=== PATIENT | female | born 1945 | race Caucasian/White ===

== ENCOUNTER → 2017-01-03 | Outpatient (CLI) | payer MEDICARE ==
--- NOTE | 2017-01-04 11:02 | MM ---
Reason for exam: screening (asymptomatic). Last mammogram was performed 1 year ago. History: Patient is postmenopausal. Family history of premenopausal breast cancer in sister at age 40. Physical Findings: A clinical breast exam by your physician is recommended on an annual basis and results should be correlated with mammographic findings. MG 3D Screening Mammo W/Cad Bilateral CC and MLO view(s) were taken. Prior study comparison: December 29, 2015, bilateral MG screening mammo w CAD. November 25, 2014, bilateral MG screening mammo w CAD. The breast tissue is heterogeneously dense. This may lower the sensitivity of mammography. Focal asymmetry upper outer right breast anterior third position. This finding is changed when compared with previous exams. ASSESSMENT: Incomplete: need additional imaging evaluation, BI-RAD 0 RECOMMENDATION: Special view mammogram of the right breast. [facility] will attempt to contact patient to return for supplemental views.
== END | disposition home or self-care (01) ==
LOC: RADMAMWWP 13:34
PROVIDERS: ATTEND Family Medicine
DX: Z12.31 Encounter for screening mammogram for malignant neoplasm of breast (principal); R92.2 Inconclusive mammogram
CPT/HCPCS: 77063; G0202

== ENCOUNTER → 2017-01-07 | Outpatient (CLI) | payer MEDICARE ==
--- NOTE | 2017-01-07 11:51 | MM ---
Reason for exam: additional evaluation requested from abnormal screening. Last mammogram was performed less than 1 month ago. History: Patient is postmenopausal. Family history of premenopausal breast cancer in sister at age 40. Physical Findings: Nurse did not find any significant physical abnormalities on exam. MG 3D Work Up W/Cad RT Spot compression CC, spot compression MLO, and LM view(s) were taken of the right breast. Prior study comparison: January 03, 2017, bilateral MG 3d screening mammo w/cad. December 29, 2015, bilateral MG screening mammo w CAD. Finding: There is a 6 mm round mass in the upper outer quadrant, anterior position of the right breast, does not completely go away. These results were verbally communicated with the patient and result sheet given to the patient on 01/07/17. ASSESSMENT: Incomplete: need additional imaging evaluation, BI-RAD 0 RECOMMENDATION: Ultrasound of the right breast.
--- NOTE | 2017-01-07 11:52 | USB ---
Reason for exam: additional evaluation requested from abnormal screening. History: Patient is postmenopausal. Family history of premenopausal breast cancer in sister at age 40. US Breast Workup Limited RT Right breast ultrasound demonstrates no cystic or solid lesion seen. These results were verbally communicated with the patient and result sheet given to the patient on 01/07/17. ASSESSMENT: Probably benign, BI-RAD 3 RECOMMENDATION: Follow-up diagnostic mammogram of the right breast in 6 months.
== END | disposition home or self-care (01) ==
LOC: RADMAMWWP 10:17
PROVIDERS: ATTEND Family Medicine
DX: R92.2 Inconclusive mammogram (principal); R92.8 Other abnormal and inconclusive findings on diagnostic imaging of breast; Z80.3 Family history of malignant neoplasm of breast
CPT/HCPCS: 76642; G0206; G0279

== ENCOUNTER → 2017-06-15 | Outpatient (CLI) | payer MEDICARE ==
--- NOTE | 2017-06-15 14:45 | MR ---
EXAMINATION TYPE: MR cervical spine wo con DATE OF EXAM: 06/15/2017 COMPARISON: NONE HISTORY: 72 year-old female cervical radiculopathy, pain in neck and arms TECHNIQUE: Multiplanar, multisequence images of the cervical spine were acquired. FINDINGS: No craniocervical junction abnormality, predental space widening, or prevertebral soft tissue swellin g. Preserved alignment of the cervical spine. Mild heterogeneity of marrow signal without suspicious bone marrow placement. Some fatty Modic type I I endplate changes present at C6-C7. Intervertebral discs are degenerated, desiccated, and show disc osteophyte complex formation. Ligamentum flavum thickening at multiple levels especially from C4 through C7 levels. Scattered facet and uncovertebral joint degenerative change Lobulated mucosal thickening and mucosal retention cysts floor of the left maxillary sinus. At C2-C3, there is facet and uncovertebral joint arthropathy particularly on the left and mild bench hand machine ior disc bulge. No significant spinal canal or neuroforaminal stenosis. At C3-C4, disc osteophyte complex with uncovertebral joint and facet arthropathy. Changes result in m oderate left neuroforaminal stenosis. There is mild attenuation of the thecal sac without significant spinal canal stenosis. At C4-C5, facet arthropathy and mild ligamentum flavum thickening. No significant canal or foraminal stenosis. At C5-C6, there is disc osteophyte complex with uncovertebral joint and facet arthropathy as well as ligamentum flavum thickening. Changes mildly narrow the spinal canal with abutment of the dorsal cord but no significant cord flattening. Changes result in mild left neuroforaminal stenosis. At C6-C7, similar changes are present with moderate left neuroforaminal stenosis and mild spinal heidy l stenosis with abutment of both the dorsal and ventral cord but no significant cord flattening or co rd compression. At C7-T1, facet degenerative change without canal or foraminal stenosis. There is a left paracentral disc protrusion at T4-T5 and right paracentral at T3-T4. These do not see m to contribute to any significant spinal canal or neural foraminal stenosis. No T2-weighted cord signal abnormality seen. IMPRESSION: 1. Moderate degenerative disc disease with disc osteophyte complexes. Additional facet/uncovertebral joint arthropathy and ligamentum flavum thickening. 2. The changes cause mild spinal canal stenosis at C5-C6 and C6-C7 and minimally attenuate the thecal sac at additional levels. No canal compromise or cord compression. 3. Variable mild neural foraminal narrowing as outlined above, moderate on the left at C3-C4 and C6-C 7.
== END | disposition home or self-care (01) ==
LOC: RADMRIMAIN 12:58
PROVIDERS: ATTEND Internal Medicine Rheumatology
DX: M48.02 Spinal stenosis, cervical region (principal); M99.71 Connective tissue and disc stenosis of intervertebral foramina of cervical region; M50.10 Cervical disc disorder with radiculopathy, unspecified cervical region; M25.78 Osteophyte, vertebrae; M24.28 Disorder of ligament, vertebrae; M46.92 Unspecified inflammatory spondylopathy, cervical region
CPT/HCPCS: 72141

== ENCOUNTER → 2018-01-10 | Outpatient (CLI) | payer MEDICARE ==
--- NOTE | 2018-01-10 10:36 | MM ---
Reason for exam: additional evaluation requested from prior study. Last mammogram was performed 6 months ago. History: Patient is postmenopausal. Family history of premenopausal breast cancer in sister at age 40. Physical Findings: Nurse did not find any significant physical abnormalities on exam. MG 3D Diag Mammo W/Cad ANIVAL Bilateral CC and MLO view(s) were taken. Prior study comparison: July 11, 2017, right breast MG 3d diag mammo w/cad RT. January 07, 2017, right breast MG 3d work up w/cad RT. There are scattered fibroglandular densities. Finding: There are typically benign vascular calcifications in both breasts. There is no discrete abnormality. These results were verbally communicated with the patient and result sheet given to the patient on 01/10/18. ASSESSMENT: Benign, BI-RAD 2 RECOMMENDATION: Routine screening mammogram of both breasts in 1 year.
== END ==
LOC: RADMAMWWP 09:38
PROVIDERS: ATTEND Family Medicine
DX: R92.8 Other abnormal and inconclusive findings on diagnostic imaging of breast (principal)
CPT/HCPCS: 77066; G0279

== ENCOUNTER → 2019-01-11 | Outpatient (CLI) | payer MEDICARE ==
--- NOTE | 2019-01-12 07:58 | BD ---
EXAMINATION TYPE: Axial Bone Density DATE OF EXAM: 01/11/2019 COMPARISON: NONE CLINICAL HISTORY: 73 YR OLD FEMALE....ICD-10 CODE: M89.9 DISORDER OF BONE Height: 52.2 Weight: 224 FRAX RISK QUESTIONS: Glucocorticoids (More than 3mos): YES (Ex: prednisone, prednisolone, methylprednisolone, dexamethasone, and hydrocortisone). History of Fracture in Adulthood: NOTHING OVER 50 YRS OLD Rheumatoid Arthritis: YES SECONDARY OSTEOPROROSI EARLY MENOPAUSE....AT 30 YRS OLD RISK FACTORS HISTORY OF: NO FRACTURES AFTER AGE 51 YRS OLD Family History of Osteoporosis: YES, MOTHER AND FATHER, NO HIP FXS Postmenopausal woman: YES, IN HER 50S Lost more than 2 inches in height since high school: YES Frequent falls: UNSTEADY Poor Health: RA MEDICATIONS: Prednisone : ON AND OFF FOR ARTHRITIS Thyroid Medications: YES, SYNTHROID, FOR ABOUT 30 YRS Additional Medications: METHOTREXATE, FLUOXETINE, MELOXICAM, HYDROXYCHLOROQUINE, BP MEDS, Additional History: RA AND OSTEOARTHRITIS, EXAM MEASUREMENTS: Bone mineral densitometry was performed using the [employer] System. Bone mineral density as measured about the Lumbar spine is: ----- L1-L4(G/cm2): 1.229 T Score Values are as follows: ----- L1: -1.5 ----- L2: 0.4 ----- L3: 1.4 ----- L4: 0.9 ----- L1-L4: 0.4 Bone mineral density FIRST BONE DENSITY AT MPH Bone mineral density about the R hip (g/cm2): 0.953 Bone mineral density about the L hip (g/cm2): 1.018 T Score values are as follows: -----R Neck: 1.0 -----L Neck: -0.7 -----R Total: -0.4 -----L Total: 0.1 Bone mineral density FIRST AT MPH FRAX%s: THERE IS A 15.3% CHANCE FOR A MAJOR OSTEOPOROTIC FX AND A 1.9% FOR HIP....PROBABILITY FOR F X IN 10 YRS TIME IMPRESSION: No evidence for osteoporosis or osteopenia. NOTE: T-SCORE=SD OF THE YOUNG ADULT MEAN.
--- NOTE | 2019-01-12 12:46 | MM ---
Reason for exam: screening (asymptomatic). Last mammogram was performed 1 year ago. History: Patient is postmenopausal. Family history of premenopausal breast cancer in sister at age 40. Physical Findings: A clinical breast exam by your physician is recommended on an annual basis and results should be correlated with mammographic findings. MG 3D Screening Mammo W/Cad Bilateral CC, MLO, and XCCL view(s) were taken. Prior study comparison: January 10, 2018, bilateral MG 3d diag mammo w/cad ANIVAL. July 11, 2017, right breast MG 3d diag mammo w/cad RT. There are scattered fibroglandular densities. There are benign appearing round vascular calcifications bilaterally. There is no discrete abnormality. ASSESSMENT: Benign, BI-RAD 2 RECOMMENDATION: Routine screening mammogram of both breasts in 1 year.
== END | disposition home or self-care (01) ==
LOC: RADMAMWWP 14:30
PROVIDERS: ATTEND Family Medicine
DX: Z12.31 Encounter for screening mammogram for malignant neoplasm of breast (principal); M89.9 Disorder of bone, unspecified
CPT/HCPCS: 77063; 77067; 77080

== ENCOUNTER → 2020-03-04 | Outpatient (CLI) | payer MEDICARE ==
[2020-03-04 12:18] LABS: Amorphous Sediment,Urine Occasional /hpf; Appearance,Urine Cloudy (Clear); Bacteria,Urine Occasional /hpf; Bilirubin,Urine Negative (Negative); Blood,Urine Negative (Negative); Budding Yeast,Urine Rare /hpf; Color,Urine Yellow; Glucose,Urine (UA) Negative (Negative); Ketones,Urine Negative (Negative); Leukocyte Esterase,Urine Large (Negative); Mucus,Urine Rare /hpf; Nitrite,Urine Positive (Negative); Protein,Urine 1+ (Negative); RBC,Urine 10 /hpf (0-5); Specific Gravity,Urine 1.014 (1.001-1.035); Squamous Epithelial Cell,Urine <1 /hpf (0-4); Urobilinogen,Urine <2.0 mg/dL (<2.0); WBC,Urine 142 /hpf (0-5)
== END | disposition home or self-care (01) ==
LOC: LABPAT 10:54
PROVIDERS: ATTEND Orthopaedic Surgery
DX: Z01.818 Encounter for other preprocedural examination (principal); Z01.812 Encounter for preprocedural laboratory examination
CPT/HCPCS: 36415; 81001; 85730; 87070

== ENCOUNTER 2020-03-11 13:16 | Observation (INO) | payer MEDICARE ==
[2020-03-10 08:25] VITALS: BMI 34.1
[~2020-03-11 13:16] MED LIST: ACETAMINOPHEN TAB 500 MG TAB PO ONE; DIAZEPAM 5 MG TAB PO PRN; GABAPENTIN 300 MG CAP PO ONE; HYDROcodone/APAP 5-325MG 1 EACH TAB PO PRN; HYDROmorphone 0.5 MG/0.5 ML SYRINGE IVP PRN; MAGNESIUM HYDROXIDE 2,400 MG/10 ML CUP PO PRN; MELOXICAM 7.5 MG TAB PO ONE; NALOXONE 0.4 MG/ML 1 ML VIAL IV PRN; ONDANSETRON 4 MG/2 ML VIAL IVP PRN; TRANEXAMIC ACID 1,000 MG in SODIUM CHLORIDE 0.9% 100 ML IVPB ONE
[2020-03-11] MEDS ORDERED: ACETAMINOPHEN TAB 500 MG TAB ONE (13:33)
[2020-03-11] MEDS ORDERED: LACTATED RINGERS 1,000 ML IV ONE (14:00)
[2020-03-11 14:32] LABS: Calcium 8.6 mg/dL (8.4-10.2); INR 1.4 (<1.2); Potassium 4.1 mmol/L (3.5-5.1); Prothrombin Time 14.2 sec (9.0-12.0)
[2020-03-11 14:41] LABS: Basophils % (A) 1 %; Eosinophils # (A) 0.1 k/uL (0-0.7); Eosinophils % (A) 1 %; HCT 34.3 % (34.0-46.0); HGB 10.9 gm/dL (11.4-16.0); Hypochromasia Marked; Lymphocytes # (A) 1.2 k/uL (1.0-4.8); Lymphocytes % (A) 18 %; MCH 31.9 pg (25.0-35.0); MCHC 31.8 g/dL (31.0-37.0); MCV 100.5 fL (80.0-100.0); Macrocytosis Slight; Mean Platelet Volume 9.4; Monocytes # (A) 0.4 k/uL (0-1.0); Monocytes % (A) 6 %; Neutrophils % (A) 72 %; Platelet Count 245 k/uL (150-450); RBC 3.41 m/uL (3.80-5.40); RDW 15.9 % (11.5-15.5)
[2020-03-11] MEDS ORDERED: HYDROmorphone 0.5 MG/0.5 ML SYRINGE IVP ONE ×2 (15:24→17:35)
[2020-03-11] MEDS ORDERED: fentaNYL (PF) 50 MCG/ML 2 ML AMP ONE (15:42)
[2020-03-11] MEDS ORDERED: TRANEXAMIC ACID 1,000 MG/10 ML VIAL ONE (15:42)
[2020-03-11] MEDS ORDERED: SUCCINYLCHOLINE CHLORIDE 100 MG/5 ML SYR IV ONE (15:42)
[2020-03-11] MEDS ORDERED: MIDAZOLAM 2 MG/2 ML VIAL ONE (15:42)
[2020-03-11] MEDS ORDERED: PHENYLEPHRINE-0.9% NACL SYG 1 MG/10 ML SYRINGE ONE (15:42)
[2020-03-11] MEDS ORDERED: ePHEDrine SULFATE/0.9% NACL/PF 50 MG/5 ML SYRINGE IV ONE (15:42)
[2020-03-11] MEDS ORDERED: LIDOCAINE 1% INJ 10MG/ML (20 ML MDV) ONE (15:42)
[2020-03-11] MEDS ORDERED: SODIUM CHLORIDE 0.9% IRRIG 1,000 ML BTL IRRIGATION ONE (15:42)
[2020-03-11] MEDS ORDERED: HEPARIN SODIUM,PORCINE 10,000 UNIT/ML 1 ML VIAL ONE (15:42)
[2020-03-11] MEDS ORDERED: SODIUM CHLORIDE 0.9% 100 ML BAG ONE (15:42)
[2020-03-11] MEDS ORDERED: PROPOFOL 10 MG/ML 20 ML VIAL IV ONE (15:42)
[2020-03-11] MEDS: ROPIVACAINE 246.25 MG, EPINEPHrine 0.5 MG, KETOROLAC 30 MG, cloNIDine HCL/PF 80 MCG, WA... MISCELLANE ONE ×10 (16:16→16:47)
--- NOTE | 2020-03-11 17:02 | P.OP ---
Date of Procedure: 03/11/20 Preoperative Diagnosis: Severe osteoarthritis right hip Postoperative Diagnosis: Severe osteoarthritis right hip Procedure(s) Performed: Right total hip arthroplasty with a direct anterior approach Implants: Hodge and nephew Polarstem size 4 standard Hodge & Nephew R3, 3 hole acetabular shell, 48 mm Hodge [employer] Nephew reflection 6.5 mm cancellus screw, 20 mm 2 Hodge [employer] Nephew R3, XLPE 20 acetabular liner Hodge & Nephew Oxinium femoral head 32 m, +0 All components were press-fit. The articulation is Oxinium on polyethylene. Anesthesia: spinal Surgeon: Mauro Sherman Leadlighter #1: Sally Brar Estimated Blood Loss (ml): 130 (60 mL returned with Cell Saver) Pathology: other (Femoral head) Condition: stable Disposition: PACU Indications for Procedure: After failure of conservative treatment we discussed the surgical and nonsurgical treatment options at length. Patient wishes to proceed with a total hip arthroplasty with a direct anterior approach. Complications specific to this procedure were discussed at length, including but not limited to infection, leg length discrepancy, dislocation, and nerve injury. Covid-19 was also discussed at length with the patient, and they are aware of the current policies and procedures. The patient was given the option of delaying surgery, but they elect to proceed knowing these risks. Patient is aware of all these complications and informed consent was obtained Operative Findings: The operative findings are consistent with severe osteoarthritis of the right hip Description of Procedure: Patient was seen and evaluated in the preoperative area, consent was reviewed, and the surgical site was marked with a skin marker. Patient was then brought to the operating room and given prophylactic antibiotics intravenously. 1 g of Tranexamic acid was also given. A spinal anesthetic was administered by the anesthesia department. The patient was then placed on the [place] table with the bony prominences well-padded. The hip area was then prepped and draped in usual sterile fashion. A universal timeout was then performed, which confirmed the patient's name, surgical site, ALLERGIES, and procedure being performed. Next the incision site was located at 1 cm distal and 1 cm lateral to the anterior superior iliac spine. The skin and subcutaneous tissues were sharply incised. Incision was carefully dissected down to the fascia overlying the tensor fascia glenna muscle. This fascia was then incised in line with the incision. Next, using blunt finger dissection, the tensor fascia glenna muscle was dissected off its investing fascia. The muscle was then carefully retracted laterally with a cobra retractor over the lateral neck of the femur. Next, the circumflex vessels were identified and cauterized using the AquaMantis device. The anterior hip capsule was then exposed. The capsule was then opened and an inverted T fashion. Cobra retractors were then placed intracapsularly. The proximal femur was then visualized. The femoral neck was then osteotomized appropriate level above the lesser trochanter. Small amount of traction was placed with the [place] table. A small wedge of bone was then removed from the remaining femoral head. Next, using a corkscrew femoral head was easily removed from the acetabulum. On gross visual inspection, the femoral head had complete loss of articular cartilage in multiple periarticular osteophytes. Attention was then turned to the acetabulum. the acetabulum was exposed and any remaining labrum was excised. Sequential reaming of the acetabulum was performed using fluoroscopic guidance. When the appropriate size was reached, a trial was then placed. The position and fit of the trial was checked with fluoroscopy. The trial was then removed. Then, using fluoroscopic guidance, the final implant was impacted at 20 of anteversion and 40 of abduction, and fully seated in the acetabulum. 2 screws were then placed in the acetabulum. Again fluoroscopy was used to check position of the screws. Next, the liner was then impacted, with a 20 elevated liner located in the anterior superior quadrant. Component locking was confirmed. Attention was then directed to the femur. With the aid of the [place] table, the femur was externally rotated to approximately 130, extended, and abducted under the opposite leg. A side hook was then placed under the proximal femur, and the side hook elevator was used to elevate the proximal femur. Retractors were then placed. A capsular release was performed, as well as a release of the conjoined tendon, which afforded excellent visualization of the proximal femur. Next, a box osteotome was used to lateralize the proximal femur. A wood stock blank handler was then used to locate the femoral canal. Sequential broaching was then performed with appropriate size which afforded excellent fixation in the proximal femur. A trial was then placed with appropriate head and neck, and the hip was gently reduced with the aid of the [place] table. Fluoroscopy was then used to check position of the components, as well as to ensure equal leg lengths. The hip was then gently dislocated and the trials were then removed. Final implants were then impacted and the hip was again reduced. Final fluoroscopic x-rays confirmed that the components were in anatomic position, as well as equal leg lengths. The hip was also taken through range of motion, and found to be stable. The hip was then copiously irrigated with antibiotic solution with pulsatile lavage. The hip was then irrigated with Irrisept solution. The soft tissues were then injected with a ropivacaine solution, which consisted of 246.25 mg of ropivacaine, 0.5 mg of epinephrine, 30 mg of Toradol, 80 g of clonidine, and 48.45 mL of sterile water, for a total of 100 mL of fluid injected. A second dose of 1 g of Tranexamic acid was also given. the fascia was then closed with 2-0 strata fix suture. The subcutaneous tissue was closed with 3-0 Vicryl. The subcuticular tissue was closed with 3-0 strata fix suture. The skin was then closed with Dermabond glue and a sterile silver dressing. The patient was then transferred to the recovery room in stable condition. The special education teaching assistant EVNAGELINA Lala was required due to the complexity of surgery, and the need for skilled instructor adjunct surgical technician for positioning, draping, exposure, retraction, and closure of the wound.
--- NOTE | 2020-03-11 17:37 | XR ---
EXAMINATION TYPE: XR Hip Limited RT DATE OF EXAM: 03/11/2020 COMPARISON: NONE HISTORY: Hip surgery TECHNIQUE: Single view FINDINGS: There is a right hip prosthesis. Components appear in anatomic position. IMPRESSION: No complicating process seen.
[2020-03-11] MEDS: HYDROmorphone 1 MG/ML 1 ML SYRINGE IVP ONE ×2 (17:49→18:00)
[2020-03-11] MEDS: LACTATED RINGERS 1,000 ML IV SCH (19:37)
[2020-03-11] MEDS: SODIUM CHLORIDE 0.9% 1,000 ML IV SCH (19:47)
[2020-03-11] MEDS: SENNOSIDES-DOCUSATE SODIUM 1 EACH TAB PO SCH (23:04)
[2020-03-11] MEDS: ASPIRIN 325 MG TAB PO SCH (23:05)
[2020-03-12 06:44] LABS: Basophils % (A) 0 %; Eosinophils % (A) 0 %; HCT 25.4 % (34.0-46.0); Hypochromasia Marked; Lymphocytes % (A) 9 %; MCHC 31.6 g/dL (31.0-37.0); MCV 101.2 fL (80.0-100.0); Macrocytosis Slight; Mean Platelet Volume 9.2; Monocytes # (A) 0.7 k/uL (0-1.0); Monocytes % (A) 6 %; Neutrophils # (A) 9.7 k/uL (1.3-7.7); Neutrophils % (A) 84 %; Platelet Count 202 k/uL (150-450); RBC 2.51 m/uL (3.80-5.40); RDW 15.6 % (11.5-15.5); WBC 11.6 k/uL (3.8-10.6)
--- NOTE | 2020-03-12 07:21 | FL ---
Fluoroscopy HISTORY: Replacement 33 seconds fluoroscopy time supplied to the referring clinician. 2 intraoperative C-arm images docum ent the procedure. See dictated report from orthopedic surgery.
--- NOTE | 2020-03-12 07:21 | XR ---
Limited right hip HISTORY: Total hip replacement 2 intraoperative C-arm images document the procedure
[2020-03-12] MEDS: SODIUM CHLORIDE 0.9% 1,000 ML IV SCH ×3 (08:21→19:25)
[2020-03-12] MEDS: LACTATED RINGERS 1,000 ML IV SCH (08:22)
--- NOTE | 2020-03-12 08:58 | P.DS ---
Providers Expected date of discharge: 03/12/20 Attending physician: Mauro Sherman Consults: 03/11/20 11:58 Consult Physician Routine Consulting Provider: Ascencion Valdivia Consult Reason/Comments: medical management Do you want consulting provider notified?: Yes Primary care physician: Palmer Escobar - Discharge Diagnosis(es) (1) Primary osteoarthritis of right hip Current Visit: Yes Status: Acute (2) S/P total hip arthroplasty Current Visit: Yes Status: Acute Hospital Course: This is a 75-year-old female with known history of degenerative arthritis of the right hip. The patient presents for evaluation. After discussion and consideration patient elects to proceed with total hip arthroplasty. The patient is seen preoperatively by Dr. Sherman and medically cleared for surgery by their primary care physician. Patient is admitted to [facility] on 03/11/2020 for total hip arthroplasty. The procedures performed without complication or sequelae. The patient is doing well postoperatively. Labs and vital signs are stable on day of discharge. On day of discharge patient's hip incision is healing well. There is minimal erythema. There is no drainage noted at this time. There is minimal soft tissue swelling to the hip and thigh. Patient has full foot and ankle motion without difficulty or pain. Calf is soft and nontender to palpation. Neurovascular status to the right lower extremity is intact. Patient is discharged home in good condition. Opioid start talking form is reviewed and signed at patient bedside. Please see med rec for accurate list of home medications. Plan - Discharge Summary Discharge Rx Participant: Yes New Discharge Prescriptions: New Aspirin 325 mg PO BID #60 tab HYDROcodone/APAP 5-325MG [Rawson 5-325] 1 - 2 tab PO Q6HR PRN #48 tab PRN Reason: Pain Sennosides [Senokot] 2 tab PO DAILY PRN #60 tablet PRN Reason: Constipation No Action Hydroxychloroquine Sulfate [Plaquenil] 200 mg PO BID metroNIDAZOLE [Flagyl] 250 mg PO DAILY PRN PRN Reason: gas FLUoxetine HCL [PROzac] 20 mg PO DAILY NIFEdipine [Procardia XL] 30 mg PO DAILY Levothyroxine Sodium [Synthroid] 200 mcg PO QAM Methotrexate Sodium [Methotrexate] 25 mg PO BROOKS Acetaminophen [Tylenol Extra Strength] 1,000 mg PO DIRECTED PRN PRN Reason: Pain Multivitamins, Thera [Multivitamin (formulary)] 1 tab PO DAILY Nitrofurantoin Monohyd/M-Cryst [Macrobid] 100 mg PO Q12HR Discharge Medication List Acetaminophen [Tylenol Extra Strength] 1,000 mg PO DIRECTED PRN 03/10/20 [History] FLUoxetine HCL [PROzac] 20 mg PO DAILY 03/10/20 [History] Hydroxychloroquine Sulfate [Plaquenil] 200 mg PO BID 03/10/20 [History] Levothyroxine Sodium [Synthroid] 200 mcg PO QAM 03/10/20 [History] Methotrexate Sodium [Methotrexate] 25 mg PO BROOKS 03/10/20 [History] Multivitamins, Thera [Multivitamin (formulary)] 1 tab PO DAILY 03/10/20 [History] NIFEdipine [Procardia XL] 30 mg PO DAILY 03/10/20 [History] Nitrofurantoin Monohyd/M-Cryst [Macrobid] 100 mg PO Q12HR 03/10/20 [History] metroNIDAZOLE [Flagyl] 250 mg PO DAILY PRN 03/10/20 [History] Aspirin 325 mg PO BID #60 tab 03/12/20 [Rx] HYDROcodone/APAP 5-325MG [Rawson 5-325] 1 - 2 tab PO Q6HR PRN #48 tab 03/12/20 [Rx] Sennosides [Senokot] 2 tab PO DAILY PRN #60 tablet 03/12/20 [Rx] Follow up Appointment(s)/Referral(s): Mauro Sherman DO [Doctor of Osteopathic Medicine] - 03/26/20 2:30 pm Activity/Diet/Wound Care/Special Instructions: Weightbearing as tolerated with walker. Leave dressing intact. Dressing may be removed by home care nurse or by patient in 10 days. May shower with dressing on. Recommend use of compression stockings daily until follow up to help prevent swelling and blood clots. May remove at night before sleeping. Please follow-up with [facility] in 2 weeks and call with any questions or concerns, . Discharge Disposition: HOME WITH HOME HEALTH SERVICES
[2020-03-12] MEDS ORDERED: NITROFURANTOIN MONOHYD/M-CRYST 100 MG CAP PO SCH (09:00)
[2020-03-12] MEDS: ASPIRIN 325 MG TAB PO SCH ×2 (09:04→21:55)
[2020-03-12] MEDS: NIFEdipine XL 30 MG TAB.ER.24 PO SCH (09:04)
[2020-03-12] MEDS: MULTIVITAMINS, THERA 1 EACH TAB PO SCH (09:14)
[2020-03-12] MEDS: FLUoxetine HCL 20 MG CAP PO SCH (09:14)
[2020-03-12] MEDS: HYDROXYCHLOROQUINE SULFATE 200 MG TAB PO SCH ×2 (10:17→21:40)
[2020-03-12] MEDS: MELOXICAM 7.5 MG TAB PO SCH (11:25)
[2020-03-12] MEDS: LEVOTHYROXINE 100 MCG TAB PO SCH (11:25)
[2020-03-12 13:36] VITALS: RESP 16
[2020-03-12] MEDS: HYDROcodone/APAP 5-325MG 1 EACH TAB PO PRN ×2 (15:05→21:55)
[2020-03-12] MEDS: SENNOSIDES-DOCUSATE SODIUM 1 EACH TAB PO SCH (19:51)
--- NOTE | 2020-03-12 20:48 | P.CONS ---
History of Present Illness - Reason for Consult Consult date: 03/12/20 Medical management Requesting physician: Mauro Sherman - Chief Complaint Right hip pain - History of Present Illness Consultation: This is a very pleasant [address] Escobar. Chronic stable medical conditions include rheumatoid arthritis, hypothyroid, hypertension, depression. Patient has undergone right total hip arthroplasty. Postprocedure local pain is controlled. No nausea vomiting. Did tolerate her breakfast this morning. No chest pain or shortness of breath. Denies any cardiac history. Sitting up in bed. Review of systems: GEN.: None EYES: None HEENT: None NECK: None RESPIRATORY: None CARDIOVASCULAR: None GASTROINTESTINAL: None GENITOURINARY: None MUSCULOSKELETAL: Pain in joints LYMPHATICS: None HEMATOLOGICAL: None PSYCHIATRY: None NEUROLOGICAL: None Past medical history to include: Rheumatoid arthritis, hypothyroid, hypertension, depression Social history: Does not smoke or drink alcohol. . Physical examination: VITAL SIGNS: 98, 62, 15, 94/56, 97% on room air GENERAL: BMI 34.4, sitting up bed, awake. EYES: Pupils equal. Conjunctiva normal. HEENT: External appearance of nose and ears normal, oral cavity grossly normal. NECK: JVD not raised; masses not palpable. HEART: First and second heart sounds are normal; no edema. LUNGS: Respiratory rate normal; clear to auscultation. ABDOMEN: Soft, nontender, liver spleen not palpable, no masses palpable. PSYCH: Alert and oriented x3; mood and affect normal. NEUROLOGICAL: Cranial nerves grossly intact; no facial asymmetry, power and sensation grossly intact MUSCULOSKELETAL: Evidence of OA. LYMPHATICS: No lymph nodes palpable in the axilla and neck INVESTIGATIONS, reviewed in the clinical context: White count 7 hemoglobin 10.9 repeat hemoglobin 8. White count 10.6 potassium 4.1 crit 1.20 Assessment: -Right total hip arthroplasty -Obesity BMI 34.4 -Chronic rheumatoid arthritis -Hypothyroid -Essential hypertension -Depression otherwise specified -Possible CAD stage III from nephrosclerosis-we'll await further workup as an outpatient Plan: Home medications to be resumed. Care was discussed with the patient. Repeat BMP as an outpatient. To be followed by the PCP. Care was discussed with the patient question were answered. Thank you Dr. Sherman Past Medical History Past Medical History: Rheumatoid Arthritis (RA), Thyroid Disorder Additional Past Medical History / Comment(s): lupus, on RX for UTI History of Any Multi-Drug Resistant Organisms: None Reported Past Surgical History: Appendectomy, Bowel Resection, Hysterectomy, Orthopedic Surgery Additional Past Surgical History / Comment(s): removal of 10-12" small intestine " to loose wt", arthroscopy rt shoulder, chioma cataracts Past Anesthesia/Blood Transfusion Reactions: No Reported Reaction Past Psychological History: No Psychological Hx Reported Smoking Status: Never smoker Past Alcohol Use History: None Reported Past Drug Use History: None Reported - Past Family History Sister(s) Family Medical History: Cancer Medications and Allergies Home Medications Medication Instructions Recorded Confirmed Type Acetaminophen [Tylenol Extra 1,000 mg PO DIRECTED PRN 03/10/20 03/10/20 History Strength] FLUoxetine HCL [PROzac] 20 mg PO DAILY 03/10/20 03/10/20 History Hydroxychloroquine Sulfate 200 mg PO BID 03/10/20 03/10/20 History [Plaquenil] Levothyroxine Sodium [Synthroid] 200 mcg PO QAM 03/10/20 03/10/20 History Methotrexate Sodium [Methotrexate] 25 mg PO BROOKS 03/10/20 03/10/20 History Multivitamins, Thera [Multivitamin 1 tab PO DAILY 03/10/20 03/10/20 History (formulary)] metroNIDAZOLE [Flagyl] 250 mg PO DAILY PRN 03/10/20 03/10/20 History Aspirin 325 mg PO BID #60 tab 03/12/20 Rx HYDROcodone/APAP 5-325MG [[place] 1 - 2 tab PO Q6HR PRN #48 tab 03/12/20 Rx 5-325] Sennosides [Senokot] 2 tab PO DAILY PRN #60 tablet 03/12/20 Rx Allergies Allergy/AdvReac Type Severity Reaction Status Date / Time No Known Allergies Allergy Verified 03/10/20 08:10 Physical Exam Vitals: Vital Signs Temp Pulse Pulse Resp BP Pulse Ox 03/12/20 09:00 100/60 03/12/20 08:45 84/48 03/12/20 07:00 98.0 F 62 15 94/56 97 03/12/20 00:45 98.0 F 73 15 90/51 96 03/11/20 21:00 82 104/57 03/11/20 20:45 94 106/69 03/11/20 20:30 79 97/59 06/30/20 20:15 77 92/57 03/11/20 20:00 81 95/61 03/11/20 19:45 79 99/62 03/11/20 19:30 79 98/61 03/11/20 19:15 80 99/65 03/11/20 19:03 97.5 F L 83 18 99/64 98 03/11/20 18:16 79 18 95/40 95 03/11/20 18:00 78 18 94/47 97 03/11/20 17:45 78 18 106/53 100 03/11/20 17:32 80 16 105/51 100 03/11/20 17:16 97 F L 84 14 107/63 100 03/11/20 13:27 97.4 F L 86 18 130/60 99 Intake and Output 03/11/20 03/12/20 03/12/20 22:59 06:59 14:59 Intake Total 850 240 Output Total 130 Balance 720 240 Intake: IV 850 Oral 240 Output: Estimated Blood Loss 130 Other: # Voids 1 1 # Bowel Movements 1 Weight 93.9 kg Results CBC & Chem 7: 03/12/20 06:10 03/11/20 14:10 Labs: Abnormal Lab Results - Last 24 Hours (Table) 03/11/20 03/11/20 03/11/20 Range/Units 14:10 14:10 14:10 WBC (3.8-10.6) k/uL RBC 3.41 L (3.80-5.40) m/uL Hgb 10.9 L (11.4-16.0) gm/dL Hct (34.0-46.0) % MCV 100.5 H (80.0-100.0) fL RDW 15.9 H (11.5-15.5) % Neutrophils # (1.3-7.7) k/uL PT 14.2 H (9.0-12.0) sec INR 1.4 H (<1.2) Chloride 116 H (98-107) mmol/L Carbon Dioxide 18 L (22-30) mmol/L Creatinine 1.20 H (0.52-1.04) mg/dL 03/12/20 Range/Units 06:10 WBC 11.6 H (3.8-10.6) k/uL RBC 2.51 L (3.80-5.40) m/uL Hgb 8.0 L D (11.4-16.0) gm/dL Hct 25.4 L (34.0-46.0) % MCV 101.2 H (80.0-100.0) fL RDW 15.6 H (11.5-15.5) % Neutrophils # 9.7 H (1.3-7.7) k/uL PT (9.0-12.0) sec INR (<1.2) Chloride (98-107) mmol/L Carbon Dioxide (22-30) mmol/L Creatinine (0.52-1.04) mg/dL
[2020-03-13 01:12] VITALS: TEMP 98.5
[2020-03-13] MEDS: LACTATED RINGERS 1,000 ML IV SCH (02:28)
[2020-03-13] MEDS: HYDROcodone/APAP 5-325MG 1 EACH TAB PO PRN (04:27)
[2020-03-13] MEDS: LEVOTHYROXINE 100 MCG TAB PO SCH (05:47)
[2020-03-13] MEDS: NIFEdipine XL 30 MG TAB.ER.24 PO SCH (08:20)
[2020-03-13] MEDS: MELOXICAM 7.5 MG TAB PO SCH (08:26)
[2020-03-13] MEDS: FLUoxetine HCL 20 MG CAP PO SCH (08:26)
[2020-03-13] MEDS: MULTIVITAMINS, THERA 1 EACH TAB PO SCH (08:26)
[2020-03-13] MEDS: HYDROXYCHLOROQUINE SULFATE 200 MG TAB PO SCH (08:26)
[2020-03-13] MEDS: ASPIRIN 325 MG TAB PO SCH (08:26)
--- NOTE | 2020-03-13 09:18 | P.PN ---
Subjective Progress Note Date: 03/13/20 This is a 75 year-old female who is status post right total hip arthroplasty. This is postoperative day #2 and patient is seen and evaluated at bedside today. Patient had issues with feeling dizzy when she was walking with physical therapy yesterday. Patient states that she feels tired and did feel somewhat dizzy when she used the bathroom this morning. Patient reports some soreness in the right thigh today. Patient denies any fever/chills, numbness, weakness, tingling, abdominal pain, shortness of breath or chest pain. Objective - Vital Signs Vital signs: Vital Signs Temp 98.5 F 03/13/20 07:29 Pulse 74 03/13/20 07:29 Resp 16 03/13/20 07:29 BP 93/54 03/13/20 07:29 Pulse Ox 97 03/13/20 07:29 Intake & Output 03/12/20 03/13/20 03/13/20 18:59 06:59 18:59 Intake Total 800 Balance 800 Intake: Oral 800 Other: Voiding Method Toilet # Voids 1 3 # Bowel Movements 1 1 - Exam Vital signs are stable. Patient is in no acute distress and is alert and oriented 3. Calf is soft and nontender to palpation. Dressing is clean, dry, and intact. Patient has full foot and ankle motion without pain or difficulty. Neurovascular status and circulatory status are intact. - Labs CBC & Chem 7: 03/12/20 06:10 03/11/20 14:10 Assessment and Plan (1) Primary osteoarthritis of right hip Current Visit: Yes Status: Acute Code(s): M16.11 - UNILATERAL PRIMARY OSTEOARTHRITIS, RIGHT HIP SNOMED Code(s): 012918695717135 (2) S/P total hip arthroplasty Current Visit: Yes Status: Acute Code(s): Z96.649 - PRESENCE OF UNSPECIFIED ARTIFICIAL HIP JOINT SNOMED Code(s): 272154339183 Plan: Continue routine postop care and pain control. Continue anticoagulation with aspirin. Weightbearing as tolerated with a walker. Leave dressing in place for 10 days. Appreciate input from medicine. Hemoglobin is 8.0. Anticipate discharge later today or tomorrow if patient is medically cleared.
[2020-03-13] MEDS ORDERED: LACTATED RINGERS 250 ML IV ONE (11:41)
[2020-03-13] MEDS ORDERED: LACTATED RINGERS 250 ML IV SCH (11:45)
[2020-03-13 13:42] VITALS: BP 94/60; PULSE 72
--- NOTE | 2020-03-13 23:12 | P.PN ---
Progress Note - Text Progress Note Date: 03/13/20 - Chief Complaint Right hip pain Consultation: This is a very pleasant [address] Escobar. Chronic stable medical conditions include rheumatoid arthritis, hypothyroid, hypertension, depression. Patient has undergone right total hip arthroplasty. Postprocedure local pain is controlled. No nausea vomiting. Did tolerate her breakfast this morning. No chest pain or shortness of breath. Denies any cardiac history. Sitting up in bed. Today-laying in bed. Did tolerate some diet. Some pain in the right hip. No nausea vomiting. Patient did walk in the hallway. No dizziness. Some hypotension. To 50 mL of fluid ordered. Review of systems: Was done for constitutional, cardiovascular, GI, pulmonary. Musculoskeletal relevant finding as above Current medications reviewed in today's electronic records Physical examination: VITAL SIGNS: 98.5, 74, 16, 93/54, 97% room air GENERAL: Propped in bed, awake EYES: Pupils equal. Conjunctiva normal. HEENT: External appearance of nose and ears normal, oral cavity grossly normal. NECK: JVD not raised; masses not palpable. HEART: First and second heart sounds are normal; no edema. LUNGS: Respiratory rate normal; clear to auscultation. ABDOMEN: Soft, nontender, liver spleen not palpable, no masses palpable. PSYCH: Alert and oriented x3; mood and affect normal. MUSCULOSKELETAL: Evidence of OA. INVESTIGATIONS, reviewed in the clinical context: White count 11.6 hemoglobin 8 Previous testing White count 7 hemoglobin 10.9 repeat hemoglobin 8. White count 10.6 potassium 4.1 crit 1.20 Assessment: -Right total hip arthroplasty -Obesity BMI 34.4 -Chronic rheumatoid arthritis -Hypothyroid -Essential hypertension -Depression otherwise specified -Possible chronic kidney disease stage III from nephrosclerosis-we'll await further workup as an outpatient -Acute postprocedure blood loss anemia, as expected from surgery -Hypotension from blood loss anemia Plan: Patient antihypertensive has been held. Patient checks her blood pressure daily at home. Discussed with the patient. Otherwise patient is feeling well. Thank you Dr. Sherman
[2020-03-16] MEDS ORDERED: METHOTREXATE SODIUM 2.5 MG TAB PO SCH (09:00)
== END 2020-03-13 15:10 | disposition home or self-care (01) ==
LOC: OR 13:16 → 6PED 17:16 → OR 03-13 10:03
PROVIDERS: ADMIT Orthopaedic Surgery; ATTEND Orthopaedic Surgery
DX: M16.11 Unilateral primary osteoarthritis, right hip (principal); I95.9 Hypotension, unspecified; D62 Acute posthemorrhagic anemia; E03.9 Hypothyroidism, unspecified; M06.9 Rheumatoid arthritis, unspecified; E87.5 Hyperkalemia; I10 Essential (primary) hypertension; F32.9 Major depressive disorder, single episode, unspecified; M32.9 Systemic lupus erythematosus, unspecified; N39.0 Urinary tract infection, site not specified; E66.9 Obesity, unspecified; Z68.34 Body mass index [BMI] 34.0-34.9, adult; Z79.899 Other long term (current) drug therapy; Z97.3 Presence of spectacles and contact lenses; Z90.49 Acquired absence of other specified parts of digestive tract; Z98.890 Other specified postprocedural states; Z90.710 Acquired absence of both cervix and uterus; Z88.0 Allergy status to penicillin; Z79.890 Hormone replacement therapy; Z98.41 Cataract extraction status, right eye; Z98.42 Cataract extraction status, left eye; Z87.09 Personal history of other diseases of the respiratory system; Z98.811 Dental restoration status; Z82.49 Family history of ischemic heart disease and other diseases of the circulatory system; Z82.69 Family history of other diseases of the musculoskeletal system and connective tissue; Z80.9 Family history of malignant neoplasm, unspecified
CPT/HCPCS: 27130; 97116; 97110; 97161; 97535 ×2; 97165; 86891; 86900; 86901; 80048; 85025 ×2; 85610; 86850; 88300; 73501; G0378; P9022; C1776; J2250; J0171; J1644; J0690 ×2; J2001; J3010; J1885; J1170 ×2; J2795; J2370; J0330; J2704; J0735

== ENCOUNTER → 2020-08-01 | Outpatient (CLI) | payer MEDICARE ==
--- NOTE | 2020-08-20 10:34 | MM ---
Reason for exam: screening (asymptomatic). Last mammogram was performed 1 year and 7 months ago. History: Patient is postmenopausal. Family history of premenopausal breast cancer in sister at age 40. Physical Findings: A clinical breast exam by your physician is recommended on an annual basis and results should be correlated with mammographic findings. MG 3D Screening Mammo W/Cad Bilateral CC and MLO view(s) were taken. Prior study comparison: January 11, 2019, bilateral MG 3d screening mammo w/cad. January 10, 2018, bilateral MG 3d diag mammo w/cad ANIVAL. There are scattered fibroglandular densities. There are benign appearing vascular calcifications bilaterally. ASSESSMENT: Incomplete: need additional imaging evaluation, BI-RAD 0 RECOMMENDATION: Special view mammogram of both breasts. Technical call back.
== END | disposition home or self-care (01) ==
LOC: RADMAMWWP 12:29
PROVIDERS: ATTEND Family Medicine
DX: Z12.31 Encounter for screening mammogram for malignant neoplasm of breast (principal)
CPT/HCPCS: 77063; 77067

== ENCOUNTER → 2020-08-20 | Outpatient (CLI) | payer MEDICARE ==
--- NOTE | 2020-08-20 12:12 | MM ---
Reason for exam: additional evaluation requested from abnormal screening. Last mammogram was performed 1 month ago. History: Patient is postmenopausal. Family history of premenopausal breast cancer in sister at age 40. Physical Findings: A clinical breast exam by your physician is recommended on an annual basis and results should be correlated with mammographic findings. MG Follow Up Bilat No Charge Bilateral CC and MLO view(s) were taken. Prior study comparison: January 11, 2019, bilateral MG 3d screening mammo w/cad. January 10, 2018, bilateral MG 3d diag mammo w/cad ANIVAL. There are scattered fibroglandular densities. No significant new findings when compared with previous films. These results were verbally communicated with the patient and result sheet given to the patient on 08/20/20. ASSESSMENT: Benign, BI-RAD 2 RECOMMENDATION: Return to routine screening mammogram schedule for both breasts.
== END | disposition home or self-care (01) ==
LOC: RADMAMWWP 10:03
PROVIDERS: ATTEND Family Medicine
DX: R92.8 Other abnormal and inconclusive findings on diagnostic imaging of breast (principal)
CPT/HCPCS: 77066

== ENCOUNTER 2021-07-10 03:29 | Inpatient (IN) | payer MEDICARE ==
--- NOTE | 2021-07-10 03:43 | ED ---
Recheck HPI - General Chief Complaint: Altered Mental Status Stated Complaint: Weakness Time Seen by Provider: 07/10/21 03:39 Source: EMS, RN notes reviewed, old records reviewed Mode of arrival: EMS Limitations: altered mental status, physical limitation (BIPAP) - History of Present Illness Initial Comments: Is a 76-year-old female to the emergency room today. Patient presents today for evaluation, patient presents today for evaluation regards to sepsis. Lactic acid of 5, urinary tract infection with fevers of 104. White count of 19. Patient is on IV antibiotics was placed on BiPAP after fluid resuscitation secondary to oxygen desaturation. Patient awake alert is maintaining on BiPAP and will continue pressor support for blood pressure MD Complaint: abnormal lab, needs IV antibiotics, other (recheck sepsis) -: unknown Returns Today for: needs IV antibiotics Symptoms Since Prior Visit: fever Context: planned re-check (sent for further supportive care) Associated Symptoms: fever, chills, shortness of breath, malaise, nausea Treatments Prior to Arrival: IV/IO, urinary catheter in place, Given Antibiotics on, Given Pain Meds on - Related Data Allergies Allergy/AdvReac Type Severity Reaction Status Date / Time Penicillins Allergy Unknown Verified 07/10/21 17:58 Review of Systems ROS Statement: Those systems with pertinent positive or pertinent negative responses have been documented in the HPI. ROS Other: All systems not noted in ROS Statement are negative. Past Medical History Past Medical History: Rheumatoid Arthritis (RA), Thyroid Disorder Additional Past Medical History / Comment(s): lupus, on RX for UTI History of Any Multi-Drug Resistant Organisms: None Reported Past Surgical History: Appendectomy, Bowel Resection, Hysterectomy, Orthopedic Surgery Additional Past Surgical History / Comment(s): removal of 10-12" small intestine " to loose wt", arthroscopy rt shoulder, chioma cataracts Past Anesthesia/Blood Transfusion Reactions: No Reported Reaction Past Psychological History: No Psychological Hx Reported Smoking Status: Unknown if ever smoked Past Alcohol Use History: None Reported Past Drug Use History: None Reported - Past Family History Sister(s) Family Medical History: Cancer General Exam Limitations: altered mental status, physical limitation General appearance: alert, lethargic, in distress Head exam: Present: atraumatic, normocephalic, normal inspection Eye exam: Present: normal appearance, PERRL, EOMI. Absent: scleral icterus, conjunctival injection, periorbital swelling ENT exam: Present: normal exam, mucous membranes moist Neck exam: Present: normal inspection. Absent: tenderness, meningismus, lymphadenopathy Respiratory exam: Present: normal lung sounds bilaterally. Absent: respiratory distress, wheezes, rales, rhonchi, stridor Cardiovascular Exam: Present: regular rate, normal rhythm, normal heart sounds. Absent: systolic murmur, diastolic murmur, rubs, gallop, clicks GI/Abdominal exam: Present: soft, normal bowel sounds. Absent: distended, tenderness, guarding, rebound, rigid Extremities exam: Present: normal inspection, full ROM, normal capillary refill. Absent: tenderness, pedal edema, joint swelling, calf tenderness Back exam: Present: normal inspection Neurological exam: Present: alert, oriented X3, CN II-XII intact Psychiatric exam: Present: normal affect, normal mood Skin exam: Present: warm, dry, intact, normal color. Absent: rash Course Vital Signs 07/10/21 07/10/21 07/10/21 03:34 03:49 03:55 Temperature 97.8 F Pulse Rate 81 81 79 Respiratory 18 13 21 Rate Blood Pressure 75/41 84/38 77/42 O2 Sat by Pulse 95 94 L 98 Oximetry 07/10/21 07/10/21 07/10/21 04:00 04:05 04:10 Temperature Pulse Rate 80 78 83 Respiratory 18 16 20 Rate Blood Pressure 84/44 82/44 78/46 O2 Sat by Pulse 97 98 98 Oximetry 07/10/21 07/10/21 07/10/21 04:20 04:25 04:30 Temperature Pulse Rate 80 81 87 Respiratory 19 18 20 Rate Blood Pressure 81/42 112/60 120/56 O2 Sat by Pulse 98 98 98 Oximetry 07/10/21 07/10/21 07/10/21 04:45 05:00 05:30 Temperature Pulse Rate 81 83 80 Respiratory 16 14 18 Rate Blood Pressure 115/58 107/57 106/50 O2 Sat by Pulse 98 98 98 Oximetry 07/10/21 07/10/21 07/10/21 06:00 06:45 07:27 Temperature 97.7 F Pulse Rate 84 81 81 Respiratory 18 16 18 Rate Blood Pressure 109/51 106/61 103/55 O2 Sat by Pulse 98 98 97 Oximetry 07/10/21 08:32 Temperature Pulse Rate 86 Respiratory Rate Blood Pressure 100/51 O2 Sat by Pulse 97 Oximetry - Reevaluation(s) Reevaluation #1: 07/10/21 03:54 Record is reviewed 07/10/21 03:54 transferring paperwork is also been reviewed 07/10/21 03:54 Did speak with transferring physician regarding transfer Reevaluation #2: 07/10/21 03:54 Patient was taken off blood pressure control but currently has low blood pressure with purulent reinstate levothyroid - Consultations Consultation #1: Spoke with Dr. Valdivia agrees to admit this patient Consultation #2: Spoke with ICU who agrees to accept patient for admission Procedures - Sepsis Sepsis Focused Exam #1 Time Sepsis Criteria Met: 03:53 Sepsis Focused Exam Date: 07/10/21 Sepsis Focused Exam Time: 06:00 Sepsis Focused Exam Complete: Yes Vital Signs & RN Notes Reviewed: Yes Capillary Refill: < 2 Seconds: Fingers, Toes Peripheral Pulses: Normal: Radial (R), Radial (L), Posterior Tibialis (R), Posterior Tibialis (L), Dorsalis Pedis (R), Dorsalis Pedis (L) Skin Color: Flushed Respiratory Exam: rhonchi, decreased breath sounds Cardiovascular Exam: regular rate Medical Decision Making - Medical Decision Making 76 female accepted in transfer for UTI with sepsis requiring BiPAP and pressure support for blood pressure. On antibiotics. - Lab Data Result diagrams: 07/11/21 12:16 07/11/21 04:38 - Radiology Data Radiology results: report reviewed (X-ray shows positive pulmonary edema), image reviewed Critical Care Time Critical Care Time: Yes Total Critical Care Time: 31 Disposition Clinical Impression: Delirium due to general medical condition, Altered mental status, CHF (congestive heart failure), Pulmonary edema, Weakness, UTI (urinary tract infection), Fever, Sepsis Disposition: ADMITTED IP TO THIS [facility] Condition: Serious Is patient prescribed a controlled substance at d/c from ED?: No
[2021-07-10] MEDS ORDERED: NALOXONE 0.4 MG/ML 1 ML VIAL IV PRN (03:49)
[2021-07-10] MEDS ORDERED: MORPHINE SULFATE 4 MG/ML SYRINGE IV PRN (03:49)
[2021-07-10] MEDS ORDERED: ACETAMINOPHEN TAB 325 MG TAB PO PRN (03:49)
[2021-07-10] MEDS ORDERED: IPRATROPIUM-ALBUTEROL 3 ML NEB INHALATION PRN (03:49)
[2021-07-10] MEDS ORDERED: DEXTROSE 5%-0.45% NACL 1,000 ML IV SCH (04:00)
[2021-07-10] MEDS: NOREPINEPHRINE 32 MG in SODIUM CHLORIDE 0.9% 218 ML IV SCH (04:02)
--- NOTE | 2021-07-10 04:09 | XR ---
EXAMINATION TYPE: XR chest 1V portable DATE OF EXAM: 07/10/2021 COMPARISON: NONE HISTORY: Short of breath TECHNIQUE: Single view FINDINGS: There is poor inspiration. There is some atelectasis at the lung bases. There is left-sided central venous catheter with tip in the superior vena cava. No obvious heart failure. There is coars ening of the lung markings. IMPRESSION: Poor inspiration with some atelectasis at the lung bases. Mild pulmonary congestion.
[2021-07-10] MEDS: AMPICILLIN-SULBACTAM 3 GM in SODIUM CHLORIDE 0.9% 100 ML IVPB SCH ×2 (04:21→12:18)
[2021-07-10] MEDS ORDERED: fentaNYL (PF) 50 MCG/ML 2 ML AMP IV STA (04:34)
[2021-07-10 06:51] LABS: Glucose,Whole Blood 200 mg/dL (75-99)
[2021-07-10 07:28] LABS: ABG Base Excess 5.8 mmol/L; ABG HCO3 30 mmol/L (21-25); ABG Oxygen Saturation 94.5 % (94-97); ABG PCO2 47 mmHg (35-45); ABG PH 7.42 (7.35-7.45); ABG PO2 76 mmHg (83-108); ABG TCO2 32 mmol/L (19-24); Allen Test Performed? Yes
[2021-07-10 08:44] LABS: Glucose,Whole Blood 216 mg/dL (75-99)
[2021-07-10] MEDS ORDERED: ONDANSETRON 4 MG/2 ML VIAL IVP PRN (08:47)
[2021-07-10] MEDS ORDERED: SODIUM CHLORIDE 0.9% 1,000 ML IV ONE (09:02)
[2021-07-10] MEDS ORDERED: VANCOMYCIN IV PER PHARMACY 1 EACH MISC MISCELLANE PRN (09:06)
[2021-07-10] MEDS: SODIUM CHLORIDE 0.9% 1,000 ML IV SCH ×2 (09:15→20:45)
--- NOTE | 2021-07-10 09:26 | P.NPCON ---
History of Present Illness - Reason for Consult acute renal failure - History of Present Illness Reason for consultation: Acute kidney injury on chronic kidney disease History of present illness: Patient is a 76-year-old female seen in consultation for acute kidney injury On chronic kidney disease. Patient has chronic kidney disease stage IIIa with baseline creatinine 1.3-1.5 secondary to nephrosclerosis. Patient was transferred to this facility from [facility]. She presented there with generalized weakness fever and altered mental status. She is currently being treated for UTI. Patient is currently on BiPAP and is not able to provide any history. It appears patient has had multiple urinary tract infections and has been treated with antibiotics. She did receive 500 mL bolus and is currently maintained on half-normal saline at 90 mL an hour. She is also on Levophed. Patient's blood pressure was in the systolic 60s to 70s on admission and was up to 100/50 one this morning. She is receiving another liter bolus with normal saline. Vital signs are stable. On Levophed. General: On BiPAP. Lungs: Breath sounds decreased. HEART: Rate and Rhythm are regular. ABDOMEN: Soft, no distention. EXTREMITITES: No edema. Past Medical History Past Medical History: Rheumatoid Arthritis (RA), Thyroid Disorder Additional Past Medical History / Comment(s): lupus, on RX for UTI History of Any Multi-Drug Resistant Organisms: None Reported Past Surgical History: Appendectomy, Bowel Resection, Hysterectomy, Orthopedic Surgery Additional Past Surgical History / Comment(s): removal of 10-12" small intestine " to loose wt", arthroscopy rt shoulder, chioma cataracts Past Anesthesia/Blood Transfusion Reactions: No Reported Reaction Past Psychological History: No Psychological Hx Reported Smoking Status: Unknown if ever smoked Past Alcohol Use History: None Reported Past Drug Use History: None Reported - Past Family History Sister(s) Family Medical History: Cancer Medications and Allergies Home Medications Medication Instructions Recorded Confirmed Type Acetaminophen [Tylenol Extra 1,000 mg PO DIRECTED PRN 03/10/20 03/10/20 History Strength] FLUoxetine HCL [PROzac] 20 mg PO DAILY 03/10/20 03/10/20 History Hydroxychloroquine Sulfate 200 mg PO BID 03/10/20 03/10/20 History [Plaquenil] Levothyroxine Sodium [Synthroid] 200 mcg PO QAM 03/10/20 03/10/20 History Multivitamins, Thera [Multivitamin 1 tab PO DAILY 03/10/20 03/10/20 History (formulary)] metHOTREXate sodium [Methotrexate] 25 mg PO BROOKS 03/10/20 03/10/20 History metroNIDAZOLE [Flagyl] 250 mg PO DAILY PRN 03/10/20 03/10/20 History Aspirin 325 mg PO BID #60 tab 03/12/20 Rx HYDROcodone/APAP 5-325MG [[place] 1 - 2 tab PO Q6HR PRN #48 tab 03/12/20 Rx 5-325] Sennosides [Senokot] 2 tab PO DAILY PRN #60 tablet 03/12/20 Rx Allergies Allergy/AdvReac Type Severity Reaction Status Date / Time No Known Allergies Allergy Verified 07/10/21 03:41 Physical Exam Vitals: Vital Signs Temp Pulse Resp BP Pulse Ox 07/10/21 08:32 86 100/51 97 07/10/21 07:27 81 18 103/55 97 07/10/21 06:45 97.7 F 81 16 106/61 98 07/10/21 06:00 84 18 109/51 98 07/10/21 05:30 80 18 106/50 98 07/10/21 05:00 83 14 107/57 98 07/10/21 04:45 81 16 115/58 98 07/10/21 04:30 87 20 120/56 98 07/10/21 04:25 81 18 112/60 98 07/10/21 04:20 80 19 81/42 98 07/10/21 04:10 83 20 78/46 98 07/10/21 04:05 78 16 82/44 98 07/10/21 04:00 80 18 84/44 97 07/10/21 03:55 79 21 77/42 98 07/10/21 03:49 81 13 84/38 94 L 07/10/21 03:34 97.8 F 81 18 75/41 95 Intake and Output 07/09/21 07/10/21 07/10/21 22:59 06:59 14:59 Other: Weight 77.111 kg Results - Lab Results Most recent lab results ABG pH 7.42 (7.35-7.45) 07/10/21 07:18 ABG pCO2 47 mmHg (35-45) H 07/10/21 07:18 ABG pO2 76 mmHg (83-108) L 07/10/21 07:18 ABG HCO3 30 mmol/L (21-25) H 07/10/21 07:18 ABG O2 Saturation 94.5 % (94-97) 07/10/21 07:18 Assessment and Plan Plan: Assessment: 1. Acute kidney injury secondary to ATN secondary to septic shock. Creatinine 2.4 at [facility]. 2. Chronic kidney disease stage IIIa baseline creatinine in the range of 1.3- 1.5 secondary to nephrosclerosis. 3. Septic shock secondary to UTI on Levophed and antibiotics. Plan: Change IV fluids to normal saline. Agree with bolus. Wean FiO2 and vasopressors. Follow-up cultures. Repeat labs today. Check UA and renal ultrasound. Avoid nephrotoxins. Thank you for the consultation. I will continue to follow the patient is due during her hospital stay.
[2021-07-10] MEDS ORDERED: ALTEPLASE 2 MG VIAL (CATHFLO) IV STA ×2 (09:27→09:28)
[2021-07-10] MEDS: HYDROCORTISONE SUCCINATE 100 MG/2 ML VIAL IV SCH ×3 (09:59→23:16)
[2021-07-10] MEDS: PANTOPRAZOLE 40 MG/10 ML VIAL IV SCH (09:59)
[2021-07-10] MEDS ORDERED: VANCOMYCIN 1,500 MG in SODIUM CHLORIDE 0.9% 250 ML IVPB SCH (10:00)
[2021-07-10 10:12] LABS: Anisocytosis Slight; HCT 24.3 % (34.0-46.0); Hypochromasia Slight; MCH 26.4 pg (25.0-35.0); MCHC 31.3 g/dL (31.0-37.0); Mean Platelet Volume 9.6; Microcytosis Slight; RBC 2.89 m/uL (3.80-5.40); RDW 19.5 % (11.5-15.5); WBC 33.3 k/uL (3.8-10.6)
[2021-07-10 10:14] LABS: HGB 7.6 gm/dL (11.4-16.0); MCV 84.2 fL (80.0-100.0)
[2021-07-10 10:19] LABS: Calcium 7.7 mg/dL (8.4-10.2); Potassium 3.4 mmol/L (3.5-5.1); Total Bilirubin 4.1 mg/dL (0.2-1.3); Total Protein 4.8 g/dL (6.3-8.2)
[2021-07-10 10:36] LABS: Platelet Count 57 k/uL (150-450)
[2021-07-10 10:47] LABS: Band Neutrophils % 2 %; Lymphocytes # (M) 1.67 k/uL (1.0-4.8); Monocytes # (M) 2.33 k/uL (0-1.0); Neutrophils % (M) 86 %; Nucleated Red Blood Cells 0 /100 WBC (0-0); Total Cells Counted 100
[2021-07-10 10:48] LABS: Poikilocytosis (M) Present
[2021-07-10 11:08] VITALS: BMI 25.8
--- NOTE | 2021-07-10 12:10 | P.CNPUL ---
History of Present Illness Consult date: 07/10/21 Requesting physician: Ascencion Valdivia Reason for consult: other (Sepsis, septic shock,) Chief complaint: Generalized weakness, fever, and altered mental status History of present illness: This is a 76-year-old female with history of multiple medical problems including rheumatoid arthritis, history of pulmonary embolism, hypothyroidism, depression, chronic kidney disease, over the last 6 months, patient has been in many hospital including [facility], and she has also been at [facility] on many different occasions for recurrent urinary tract infections, failure to thrive, poor nutritional status, and [facility], later on she was transferred home. At home the patient has been receiving TPN via a central line in the left subclavian area, and the line has been present for the last 4 months according to the daughter. Patient has been receiving Procrit for anemia and she is also on Eliquis 4 history of pulmonary embolism. According to the daughter, the patient had history of rheumatoid arthritis and she developed methotrexate induced lung injury or possibly side effects related to methotrexate. [facility] and she has been treated for multiple issues including recurrent infections. Yesterday, the patient went to our lab [facility], and she was seen for mostly generalized weakness, altered mental status, fevers, and she was supposedly diagnosed as having urinary tract infec tion, and possible sepsis with septic shock. Received fluid boluses at [facility], and she was placed on norepinephrine via her left subclavian central line, apparently [facility] the right to transfer the patient to a tertiary care center, [facility] the patient could not be transferred anywhere else except [facility] because of bed availability. Patient was seen in the ER yesterday, she was hypotensive and she was placed on norepinephrine. She was noted to have significant leukocytosis with WBC count of 33.3, hemoglobin 7.6, lactic acidosis with lactic acid of 2.3, apparently was around 5 at [facility]. Her BUN was 133 creatinine 2.24. BNP level 7930, serum cortisol of 24. ABG on BiPAP showed a pO2 of 76, pCO2 of 47 pH of 7.42. Home medications on this patient include Zofran, Synthroid, Cymbalta, omeprazole, allopurinol, Aldactone, Bumex, Eliquis. Apparently the patient had history of congestive heart failure, and supposedly the ER physician at [facility] was concerned after fluid boluses that the main the patient may have developed some component of pulmonary edema. The patient herself is a very poor historian, after reevaluating the patient, I recommended empiric antibiotics in the form of Unasyn, vancomycin, I have ordered blood cultures and urine cultures, and I have also recommended nephrology as well as infectious disease consultation. Serum cortisol level was ordered, and patient was started on hydrocortisone 100 mg IV push every 8 hours. Increase her IV fluids, and we'll arrange for an echocardiogram to assess her LV function. CT of the brain at [facility] was nondiagnostic Review of Systems ROS unobtainable: due to mental status Past Medical History Past Medical History: Rheumatoid Arthritis (RA), Thyroid Disorder Additional Past Medical History / Comment(s): lupus, on RX for UTI History of Any Multi-Drug Resistant Organisms: None Reported Past Surgical History: Appendectomy, Bowel Resection, Hysterectomy, Orthopedic S urgery Additional Past Surgical History / Comment(s): removal of 10-12" small intestine " to loose wt", arthroscopy rt shoulder, chioma cataracts Past Anesthesia/Blood Transfusion Reactions: No Reported Reaction Past Psychological History: No Psychological Hx Reported Smoking Status: Unknown if ever smoked Past Alcohol Use History: None Reported Past Drug Use History: None Reported - Past Family History Sister(s) Family Medical History: Cancer Medications and Allergies Home Medications Medication Instructions Recorded Confirmed Type FLUoxetine HCL [PROzac] 60 mg PO DAILY 03/10/20 07/10/21 History Levothyroxine Sodium [Synthroid] 200 mcg PO DAILY 03/10/20 07/10/21 History Multivitamins, Thera [Multivitamin 1 tab PO DAILY 03/10/20 07/10/21 History (formulary)] Allopurinol [Zyloprim] 100 mg PO DAILY 07/10/21 07/10/21 History Apixaban [Eliquis] 5 mg PO BID 07/10/21 07/10/21 History Bumetanide [Bumex] 1 mg PO BID 07/10/21 07/10/21 History Cholecalciferol [Vitamin D3 (25 25 mcg PO DAILY 07/10/21 07/10/21 History Mcg = 1000 Iu)] Diphenoxylate HCl/Atropine 1 tab PO TID PRN 07/10/21 07/10/21 History [Lomotil 2.5-0.025 mg Tablet] Famotidine [Pepcid] 20 mg PO HS 07/10/21 07/10/21 History Ferrous Sulfate [Feosol] 325 mg PO DAILY 07/10/21 07/10/21 History HYDROcodone/APAP 5-325MG [[place] 1 tab PO BID PRN 07/10/21 07/10/21 History 5-325] Loperamide [Imodium] 2 mg PO BID PRN 07/10/21 07/10/21 History Magnesium Oxide 400 mg PO BID 07/10/21 07/10/21 History Melatonin 3 mg PO HS PRN 07/10/21 07/10/21 History Midodrine HCl [ProAmatine] 10 mg PO AC-TID 07/10/21 07/10/21 History Omeprazole 20 mg PO AC-BRKFST 07/10/21 07/10/21 History Ondansetron [Zofran] 4 mg PO Q6H PRN 07/10/21 07/10/21 History Spironolactone [Aldactone] 25 mg PO DAILY 07/10/21 07/10/21 History Sulfamethox-Tmp 800-160Mg [Bactrim 1 tab PO BID 07/10/21 07/10/21 History DS 800-160 mg] Thiamine [Vitamin B-1] 100 mg PO DAILY 07/10/21 07/10/21 History Zinc Sulfate [Orazinc] 220 mg PO DAILY 07/10/21 07/10/21 History Allergies Allergy/AdvReac Type Severity Reaction Status Date / Time No Known Allergies Allergy Verified 07/10/21 09:23 Physical Exam Vitals: Vital Signs Temp Pulse Resp BP Pulse Ox 07/10/21 08:32 86 100/51 97 07/10/21 07:27 81 18 103/55 97 07/10/21 06:45 97.7 F 81 16 106/61 98 07/10/21 06:00 84 18 109/51 98 07/10/21 05:30 80 18 106/50 98 07/10/21 05:00 83 14 107/57 98 07/10/21 04:45 81 16 115/58 98 07/10/21 04:30 87 20 120/56 98 07/10/21 04:25 81 18 112/60 98 07/10/21 04:20 80 19 81/42 98 07/10/21 04:10 83 20 78/46 98 07/10/21 04:05 78 16 82/44 98 07/10/21 04:00 80 18 84/44 97 07/10/21 03:55 79 21 77/42 98 07/10/21 03:49 81 13 84/38 94 L 07/10/21 03:34 97.8 F 81 18 75/41 95 Intake and Output 07/09/21 07/10/21 07/10/21 22:59 06:59 14:59 Other: Weight 77.111 kg 77.111 kg Physical Exam revealed a 76-year-old female, confused, on BiPAP, responds briefly to stimuli, then she tends to go back to sleep, moaning and groaning, but denies being in pain. Head: Atraumatic, normocephalic. HEENT:[Neck is supple.] [No neck masses.] [No thyromegaly.] [ Positive JVD.] Chest: [Symmetrical chest expansion, minimal crackles at the bases no rhonchi no wheezes.] Left subclavian central line noted. Cardiac Exam: [Normal S1 and S2, no S3 gallop, 2/6 systolic murmur thought the precordium. Abdomen: [Obese, Soft, nontender, no megaly, no rebound, no guarding, normal bowel sounds.] Extremities: [No clubbing bipedal edema, no cyanosis.] Good pulses bilaterally. Neurological Exam: Lethargic but Arousable, follows very simple instructions then she tends to drift back to sleep, mostly lethargic. Moaning and groaning, but denies being in pain. Psychiatric: Depressed mood, blunt affect, poor mental status, confused. Could not obtain much history from the patient herself. Results - Laboratory Findings CBC and BMP: 07/10/21 09:36 07/10/21 09:36 ABG ABG pH 7.42 (7.35-7.45) 07/10/21 07:18 ABG pCO2 47 mmHg (35-45) H 07/10/21 07:18 ABG pO2 76 mmHg (83-108) L 07/10/21 07:18 ABG O2 Saturation 94.5 % (94-97) 07/10/21 07:18 Abnormal lab findings: Abnormal Labs 07/10/21 07/10/21 07/10/21 06:00 06:50 07:18 WBC RBC Hgb Hct RDW Plt Count Neutrophils # (Manual) Monocytes # (Manual) ABG pCO2 47 H ABG pO2 76 L ABG HCO3 30 H ABG Total CO2 32 H Sodium Potassium Chloride BUN Creatinine Glucose POC Glucose (mg/dL) 200 H Plasma Lactic Acid Italo 2.3 H* Calcium Total Bilirubin AST Alkaline Phosphatase Total Protein Albumin 07/10/21 07/10/21 07/10/21 08:42 09:36 09:36 WBC 33.3 H RBC 2.89 L Hgb 7.6 L D Hct 24.3 L RDW 19.5 H Plt Count 57 L D Neutrophils # (Manual) 29.30 H Monocytes # (Manual) 2.33 H ABG pCO2 ABG pO2 ABG HCO3 ABG Total CO2 Sodium 130 L Potassium 3.4 L Chloride 94 L BUN 133 H* Creatinine 2.24 H Glucose 142 H POC Glucose (mg/dL) 216 H Plasma Lactic Acid Italo Calcium 7.7 L Total Bilirubin 4.1 H AST 41 H Alkaline Phosphatase 231 H Total Protein 4.8 L Albumin 2.0 L - Diagnostic Findings Chest x-ray: image reviewed ( chest x-ray showed poor inspiration, mild pulmonary congestion, atelectasis at the base) Assessment and Plan Assessment: Impression: Septic shock, exact source of sepsis is not clear, suspect either related to urinary tract infection or possibly related to central venous catheter/left subclavian central line. Cultures are pending on urine and blood. Acute on chronic kidney disease stage IIIa. History of rheumatoid arthritis History of methotrexate toxicity Failure to thrive. Maintained on TPN. History of pulmonary embolism on Eliquis. History of congestive heart failure maintained on diuretics at home including Bumex and Aldactone. History of gout. Hypothyroidism. History of depression. History of bowel resection. Chronic anemia maintained on Procrit. Recommendation: Admit to ICU. Hemodynamic support, arrange for echocardiogram and assess LV function, patient may benefit from more fluids if possible. Serum cortisol level and start patient empirically on hydrocortisone. Continue norepinephrine. Consider blood transfusion if hemoglobin drifts down any further. Continue BiPAP however if the patient's condition deteriorates, may have to be placed on mechanical ventilation. Resume home meds. Order echocardiogram and assess LV function. Blood cultures urine cultures ordered. Empiric antibiotics in the form of Unasyn and vancomycin. Infectious disease consultation. Nephrology consultation. Neurology consultation. Resume patient on Eliquis. Since she had previous history of pulmonary embolism. Resume home meds. Discussed her condition over the phone with her daughter. And made aware that her prognosis is definitely guarded. We will continue to follow. Critical care time is over 55 minutes. Time with Patient: Greater than 30
[2021-07-10 12:31] LABS: Magnesium 1.9 mg/dL (1.6-2.3); Phosphorus 2.1 mg/dL (2.5-4.5)
--- NOTE | 2021-07-10 12:51 | US ---
EXAMINATION TYPE: US kidneys/renal and bladder DATE OF EXAM: 07/10/2021 COMPARISON: NONE CLINICAL HISTORY: 76 year-old female acute kidney injury TECHNIQUE: Multiple sonographic images of the kidneys and bladder are obtained. FINDINGS: Criminal Profiler notes: Limited exam. EXAM MEASUREMENTS: Right Kidney: 9.2 x 5.4 x 4.1 cm Left Kidney: 9.1 x 5.2 x 4.7 cm No evident hydronephrosis. Limited detailed assessment due to large body habitus and some bowel gas s hadowing. Bladder: not distended, limited visibility of the Adan catheter IMPRESSION: Technically limited exam due to shadowing from bowel gas and large patient body habitus. No evident h ydronephrosis.
--- NOTE | 2021-07-10 13:32 | P.CNNES ---
History of Present Illness Consult date: 07/10/21 Requesting physician: Meliza Koch Reason for Consult: altered mental status History of Present Illness: This is a 76-year-old woman with medical history of pulmonary embolism on eliquis, hypothyroidism, chronic kidney the insufficiency, recurrent urinary tract infection, rheumatoid arthritis and depression who presented to the emergency department on 07/10/2021 or generalized weakness and altered mental status and fever. Neurology is consulted for altered mental status. History is obtained from patient's daughter who is at bedside. Patient has been to different facilities for her her recurrent urinary tract infection and failure to thrive. Patient has a been receiving TPN via central line in the left subclavian area for the last 4 months. Per the patient daughter the patient has been at home for the last 10 days since she was discharged from rehab for recent urinary tract infection. Recently she's been the complained of some back pain and that was on Tuesday so she took Secor and that yesterday she was having generalized the pain throughout her body and tender to touch and was lethargic and fatigue. She had a temperature of 104 Fahrenheit yesterday. Per the patient's nurse her mentation has been fluctuating. At baseline per the patient daughter she is alert oriented to self place and time and she has a normal conversation. She denies any stroke or TIA or seizure that the patient has. She usually walks with a walker. [place] the patient she stated that she was in pain throughout the body and she was on BiPAP machine. Some other workup in the hospital consisted of: Initial vital signs his blood pressure of 75/41, heart rate of 81, respiratory of 18, temperature of 97.8 Fahrenheit oral and pulse ox of 95% on BiPAP. Patient had repeated blood pressure in the 70s to 80s systolic area most recent blood pressure is in 100 to 120s. Initial white blood cell is a 33.3 and it's predominantly neutrophilic. Her hemoglobin is 7.6. Pleasant lactic acid vein initial as 2.3 repeat is 1.6. Phosphorus is 2.1. Sodium is 1:30, potassium 3.4, creatinine is the 2.24 and the BUN is 133, in itial POC glucose is 200 repeat is 216, calcium 7.7, magnesium is 1.9 AST of 41 and ALT of 17. Review of Systems Review of system: The 12 point system was reviewed and apparent positive and negative per HPI. Past Medical History Past Medical History: Rheumatoid Arthritis (RA), Thyroid Disorder Additional Past Medical History / Comment(s): lupus, on RX for UTI History of Any Multi-Drug Resistant Organisms: None Reported Past Surgical History: Appendectomy, Bowel Resection, Hysterectomy, Orthopedic Surgery Additional Past Surgical History / Comment(s): removal of 10-12" small intestine " to loose wt", arthroscopy rt shoulder, chioma cataracts Past Anesthesia/Blood Transfusion Reactions: No Reported Reaction Past Psychological History: No Psychological Hx Reported Smoking Status: Unknown if ever smoked Past Alcohol Use History: None Reported Past Drug Use History: None Reported - Past Family History Sister(s) Family Medical History: Cancer Medications and Allergies Home Medications Medication Instructions Recorded Confirmed Type FLUoxetine HCL [PROzac] 60 mg PO DAILY 03/10/20 07/10/21 History Levothyroxine Sodium [Synthroid] 200 mcg PO DAILY 03/10/20 07/10/21 History Multivitamins, Thera [Multivitamin 1 tab PO DAILY 03/10/20 07/10/21 History (formulary)] Allopurinol [Zyloprim] 100 mg PO DAILY 07/10/21 07/10/21 History Apixaban [Eliquis] 5 mg PO BID 07/10/21 07/10/21 History Bumetanide [Bumex] 1 mg PO BID 07/10/21 07/10/21 History Cholecalciferol [Vitamin D3 (25 25 mcg PO DAILY 07/10/21 07/10/21 History Mcg = 1000 Iu)] Diphenoxylate HCl/Atropine 1 tab PO TID PRN 07/10/21 07/10/21 History [Lomotil 2.5-0.025 mg Tablet] Famotidine [Pepcid] 20 mg PO HS 07/10/21 07/10/21 History Ferrous Sulfate [Feosol] 325 mg PO DAILY 07/10/21 07/10/21 History HYDROcodone/APAP 5-325MG [Secor 1 tab PO BID PRN 07/10/21 07/10/21 History 5-325] Loperamide [Imodium] 2 mg PO BID PRN 07/10/21 07/10/21 History Magnesium Oxide 400 mg PO BID 07/10/21 07/10/21 History Melatonin 3 mg PO HS PRN 07/10/21 07/10/21 History Midodrine HCl [ProAmatine] 10 mg PO AC-TID 07/10/21 07/10/21 History Omeprazole 20 mg PO AC-BRKFST 07/10/21 07/10/21 History Ondansetron [Zofran] 4 mg PO Q6H PRN 07/10/21 07/10/21 History Spironolactone [Aldactone] 25 mg PO DAILY 07/10/21 07/10/21 History Sulfamethox-Tmp 800-160Mg [Bactrim 1 tab PO BID 07/10/21 07/10/21 History DS 800-160 mg] Thiamine [Vitamin B-1] 100 mg PO DAILY 07/10/21 07/10/21 History Zinc Sulfate [Orazinc] 220 mg PO DAILY 07/10/21 07/10/21 History Allergies Allergy/AdvReac Type Severity Reaction Status Date / Time No Known Allergies Allergy Verified 07/10/21 09:23 Physical Examination - Vital Signs Vital Signs: Vital Signs Temp Pulse Resp BP Pulse Ox 07/10/21 08:32 86 100/51 97 07/10/21 07:27 81 18 103/55 97 07/10/21 06:45 97.7 F 81 16 106/61 98 07/10/21 06:00 84 18 109/51 98 07/10/21 05:30 80 18 106/50 98 07/10/21 05:00 83 14 107/57 98 07/10/21 04:45 81 16 115/58 98 07/10/21 04:30 87 20 120/56 98 07/10/21 04:25 81 18 112/60 98 07/10/21 04:20 80 19 81/42 98 07/10/21 04:10 83 20 78/46 98 07/10/21 04:05 78 16 82/44 98 07/10/21 04:00 80 18 84/44 97 07/10/21 03:55 79 21 77/42 98 07/10/21 03:49 81 13 84/38 94 L 07/10/21 03:34 97.8 F 81 18 75/41 95 Intake and Output 07/09/21 07/10/21 07/10/21 22:59 06:59 14:59 Other: Weight 77.111 kg 77.111 kg GENERAL: The patient is lying in bed and is moderate acute distress. CHEST: The heart rate is regular rate rhythm. No murmurs to auscultation. No carotid bruit bilaterally. LUNG: Clear to auscultation bilaterally no wheezing noted throughout. Not labored breathing. ABDOMEN/GI: Bowel sounds present in all 4 quadrants. Tender to touch in abdomen. NEUROLOGICAL: Higher mental function: The patient is drowsy but is awakeable to voice. Is, alert, oriented to self and time. She states she in the hospital but state she does not know which since she at so many hospitals. She is able to name objects correctly (pen, watch and glasses). Patient is following simple commands. No aphasia and no neglect. Cranial nerves: The pupils are round, equal and reactive to light. Visual ayala are full to confrontation throughout. Extraocular movement is intact no nystagmus is noted. Facial sensation is normal to touch throughout. The facial strength is normal throughout. Tongue is midline and moved [id number] without any difficulty. No dysarthria is noted. Motor: Gait is deferred. The strength is 5 over 5 throughout uppers while lowers was limited because of pain but was able to lift above gravity. Normal tone and bulk. Cerebellum: Could not asses because of her cooperation. Sensation: Could not assess because of her cooperation. Reflexes (right/left): Could not assess because of her pain. Plantars are upgoing bilaterally at baseline. Results - Laboratory Findings CBC and BMP: 07/10/21 09:36 07/10/21 09:36 Abnormal Lab Findings: Abnormal Labs 07/10/21 07/10/21 07/10/21 06:00 06:50 07:18 WBC RBC Hgb Hct RDW Plt Count Neutrophils # (Manual) Monocytes # (Manual) ABG pCO2 47 H ABG pO2 76 L ABG HCO3 30 H ABG Total CO2 32 H Sodium Potassium Chloride BUN Creatinine Glucose POC Glucose (mg/dL) 200 H Plasma Lactic Acid Italo 2.3 H* Calcium Total Bilirubin AST Alkaline Phosphatase Total Protein Albumin 07/10/21 07/10/21 07/10/21 08:42 09:36 09:36 WBC 33.3 H RBC 2.89 L Hgb 7.6 L D Hct 24.3 L RDW 19.5 H Plt Count 57 L D Neutrophils # (Manual) 29.30 H Monocytes # (Manual) 2.33 H ABG pCO2 ABG pO2 ABG HCO3 ABG Total CO2 Sodium 130 L Potassium 3.4 L Chloride 94 L BUN 133 H* Creatinine 2.24 H Glucose 142 H POC Glucose (mg/dL) 216 H Plasma Lactic Acid Italo Calcium 7.7 L Total Bilirubin 4.1 H AST 41 H Alkaline Phosphatase 231 H Total Protein 4.8 L Albumin 2.0 L Assessment and Plan Assessment: Altered mental status seems due to underlying septic encephalopathy and component of metabolic encephalopathy--mentation improving. Delerium due to above Septic encephalopathy of unknown etiology at this time possibly due to acute on chronic recurrent urinary tract infection versus source from the central line Acute on chronic kidney insufficiency History of cognitive impairment/dementia History of pulmonary embolism on Eliquis History of hypothyroidism History of rheumatoid arthritis History of Depression Plan: I ordered CT of the head. Also ordered CT lumbar since having back pain and had fall with use of eliquis but I feel her pain but I feel back pain is possibly from UTI. An EEG is not warranted at this time. Her condition is not a seizure. Urine analysis is ordered by the ICU team. Infection disease specialist is on board. Cardiology team is consulted Nephrology team is consulted We'll defer the rest of the medical management to the ICU/primary team. The plan is discussed with the patient and daughter who are at bedside. As well discussed with the nurse. Thank you for the consultation. Jj Virk M.D. Neuro-hospitalist Time with Patient: Greater than 30
[2021-07-10] MEDS ORDERED: MVI, ADULT NO.4 WITH VIT K 10 ML, TRACE (CONC-1ML/DOSE) 1 ML in AMINO ACID 5%-D15W+LYTE... IV ONE ×3 (14:00)
[2021-07-10] MEDS ORDERED: FAT EMULSION 20% 250 ML in EMPTY BAG 1 BAG IV SCH (14:00)
[2021-07-10] MEDS: POTASSIUM CHLORIDE 20 MEQ in WATER FOR INJECTION 1 100ML.BAG IVPB SCH ×2 (15:00→17:27)
--- NOTE | 2021-07-10 16:59 | CONS ---
CONSULTATION Ms. Mccann is a 76-year-old female who was transferred from [place] for further care. The history is obtained from the daughter. The patient had a complicated medical course since September of this year with multiple admissions to [facility] and one time to [facility]. She has been admitted initially in September with symptoms of dyspnea, lack of energy and was thought to have COVID-19 infection but apparently tested negative, but there was evidence of pulmonary embolism and anticoagulation was initiated at that time. Subsequently to that she had recurrent admission for weakness, peripheral edema and anemia. According to the daughter, she has underwent endoscopy and no source of GI bleeding was noted. She was subsequently transferred to [facility] and at that time long-term methotrexate was stopped and her medical regimen was adjusted. The patient was noted to be quite hypotensive during multiple admissions. She has been having recurrent episodes of significant peripheral edema but according to the daughter, no history of cardiac disease was noted during those multiple admissions and she has not been seen as an outpatient by Cardiology. The patient was relatively stable up to two years ago and over the last two years or so has had deterioration in her overall status. She is on the BiPAP now and no history could be obtained from her. She had recurrent urinary tract infection, apparently became more confused and hypotensive and transferred to [place]. She was noted to be febrile and hypotensive, given intravenous fluid and transferred to [facility]. In [facility] she is in sinus mechanism, on norepinephrine and is receiving IV fluid. She is on the BiPAP. According to the daughter, she has no history of myocardial infarction or cardiac arrhythmia. She is limited in her physical activity and has dyspnea on exertion that was attributed in the past to physical deconditioning. She has no prior history of smoking or diabetes. No history of hypertension. She is, in fact. hypotensive most often according to the daughter and she has no documented hyperlipidemia. MEDICATION: Prior to admission included spironolactone 25 mg daily, midodrine 10 mg 3 times a day, iron, Bumex 1 mg twice a day, Eliquis 5 mg twice a day. REVIEW OF SYSTEMS: Respiratory system: She had dyspnea on exertion. No recent wheezing or cough. No documented history of obstructive lung disease. GI system: She had nausea according to the daughter, occasional vomiting, but no GI bleeding. system: No dysuria or hematuria. Nervous system: No history of stroke or seizure, but she has a history of change in mental status and confusion recently. PHYSICAL EXAMINATION: She is a 76-year-old female on BiPAP, following verbal command. Blood pressure running in the 100s with a heart rate in the 80s. HEAD: Normocephalic. EYES: Sclerae anicteric. NECK: No bruit. LUNGS: Clear to auscultation with no wheezes. HEART: Regular rhythm S1, S2. No S3 with systolic murmur heard at the base, ejection type, 2/6. No diastolic murmur. ABDOMEN: Soft. Positive bowel sounds. Mild tenderness. No rebound. No organomegaly. EXTREMITIES: +1 edema with intact distal pulses. LAB DATA: Revealed a hemoglobin of 7.6. The patient had a hemoglobin of 8 in September of last year. White blood cells 33.3. Her creatinine is 2.24 and on June 29 of this year it was 1.6 and her BUN is 133 and it was 72 in June of this year, 17 in February of last year. Her NT proBNP 7930. Her bilirubin is 4.1 and it was normal on the 29 of June of this year. Her EKG done at [place] shows sinus mechanism with no acute ST- segment changes. IMPRESSION: 1. Hypotensive with febrile episode. rule out sepsis. Could be urine tract infection. Patient had recurrent urinary tract infection according to the daughter. 2. Elevated NT proBNP. The sensitivity of the elevation is decreased because of the renal failure. The patient has no prior history of congestive heart failure and on examination did not appear to have significant lung congestion. 3. Worsening renal failure, probably exacerbated by the hypotension. 4. Elevated bilirubin, new. Rule out gallbladder or liver disease. 5. Change in mental status. 6. Anemia, chronic. Workup in the progress showed no evidence of bleeding. 7. History off arthritis. 8. History of pulmonary embolism, has been anticoagulated in the past. RECOMMENDATIONS: From the cardiac standpoint, I will try to obtain the prior workup that was done at [facility]. I will obtain echocardiogram with Doppler. The patient will be evaluated by Dr. Koch. I see no acute cardiac issue at this time. We will await further workup and depending on that, further recommendations will be made. Thank you for this consult. We will follow with you. LINCOLNODL / IJN: [id number] /
[2021-07-10] MEDS ORDERED: DAPTOmycin 500 MG in SODIUM CHLORIDE 0.9% 50 ML IVPB SCH (17:00)
[2021-07-10 17:33] LABS: Glucose,Whole Blood 106 mg/dL (75-99)
--- NOTE | 2021-07-10 17:54 | ECHOF ---
Referral Reason:hypotension MEASUREMENTS -------- HEIGHT: 172.7 cm WEIGHT: 77.1 kg BP: IVSd: 0.7 cm (0.6 - 1.1) LVIDd: 4.1 cm (3.9 - 5.3) LVPWd: 0.8 cm (0.6 - 1.1) IVSs: 1.1 cm LVIDs: 2.4 cm LVPWs: 1.4 cm LAESV Index (A-L): 21.19 ml/m Ao Diam: 3.1 cm (2.0 - 3.7) AV Cusp: 2.0 cm (1.5 - 2.6) LA Diam: 3.5 cm (2.7 - 3.8) MV EXCURSION: 28.113 mm (> 18.000) MV EF SLOPE: 186 mm/s (70 - 150) EPSS: 1.2 cm MV E Sam: 1.13 m/s MV DecT: 203 ms MV A Sam: 1.54 m/s MV E/A Ratio: 0.73 AV maxP.92 mmHg AV meanP.54 mmHg AR PHT: 408 ms RAP: 5.00 mmHg RVSP: 33.70 mmHg FINDINGS -------- This was a technically good study. The left ventricular size is normal. Left ventricular wall thickness is normal. Overall left vent ricular systolic function is normal with, an EF between 55 - 60 %. The right ventricle is normal in size. The left atrial size is normal. Normal LA size by volume 22+/-6 ml/m2. The right atrial size is normal. Aortic valve is trileaflet and is mildly thickened. There is mild aortic regurgitation. There is no evidence of aortic stenosis. Peak/mean gradient across the Aortic Valve is 22.92mmHg / 11.54mmHg . The mitral valve is normal. Mild mitral regurgitation is present. The tricuspid valve appears structurally normal. Mild tricuspid regurgitation present. Right vent ricular systolic pressure is normal at < 35 mmHg. There is no pulmonic regurgitation present. The aortic root size is normal. There is no pericardial effusion. CONCLUSIONS -------- 1. The left ventricular size is normal. 2. Left ventricular wall thickness is normal. 3. Overall left ventricular systolic function is normal with, an EF between 55 - 60 %. 4. Aortic valve is trileaflet and is mildly thickened. 5. There is mild aortic regurgitation. 6. There is no evidence of aortic stenosis. 7. Peak/mean gradient across the Aortic Valve is 22.92mmHg / 11.54mmHg. 8. Mild mitral regurgitation is present. 9. Mild tricuspid regurgitation present. 10. There is no pericardial effusion. RN EMERGENCY: Xiao Salinas RDCS
[2021-07-10 19:16] LABS: Appearance,Urine Cloudy (Clear); Bilirubin,Urine Negative (Negative); Blood,Urine Trace (Negative); Color,Urine Yellow; Glucose,Urine (UA) Negative (Negative); Ketones,Urine Negative (Negative); Leukocyte Esterase,Urine Moderate (Negative); Mucus,Urine Rare /hpf; Nitrite,Urine Negative (Negative); Protein,Urine Trace (Negative); RBC,Urine 4 /hpf (0-5); Specific Gravity,Urine 1.014 (1.001-1.035); Squamous Epithelial Cell,Urine <1 /hpf (0-4); Urobilinogen,Urine <2.0 mg/dL (<2.0); WBC,Urine 20 /hpf (0-5)
--- NOTE | 2021-07-10 19:32 | CT ---
EXAMINATION TYPE: CT brain wo con DATE OF EXAM: 07/10/2021 COMPARISON: Today HISTORY: Altered mental status. CT DLP: 1076.4 mGycm Automated exposure control for dose reduction was used. There is some enlargement of the ventricles. There is mild cerebral atrophy. There is no mass effect nor midline shift. There is no sign of intracranial hemorrhage. The calvarium is intact. Skull base a ppears intact. IMPRESSION: Cerebral atrophy. hydrocephalus. No change compared to exam earlier today.
[2021-07-10] MEDS: INSULIN ASPART (NovoLOG) 100 UNIT/ML VIAL SQ SCH ×2 (19:49→23:17)
--- NOTE | 2021-07-10 20:09 | CT ---
EXAMINATION TYPE: CT lumbar spine wo con DATE OF EXAM: 07/10/2021 COMPARISON: None HISTORY: Low back pain. CT DLP: 1598.6 mGycm Automated exposure control for dose reduction was used. Lumbar vertebra have normal alignment. Posterior elements are intact. There is L1 mild compression de formity of 15%. This could be an acute fracture. Facet joints are intact. There is mild anterior spur ring in the lower thoracic spine and the lumbar spine. The sacroiliac joints are intact. There is no lumbar paraspinal mass. IMPRESSION: Degenerative mild disc changes. There is mild compression fracture L1 that could be relatively acute fracture.
--- NOTE | 2021-07-10 20:22 | P.HPIM ---
History of Present Illness H&P Date: 07/10/21 Chief Complaint: Weakness fever This is a 76-year-old patient who follows with Dr. Escobar. Since September of this year patient had about 5 admissions to [facility] in [place], any new was to [place].. Patient's and daughter is at the bedside. Patient was just discharged from the rehab about 10 days ago. Did not receive the patient has issues with her kidneys. Has low blood pressure. Also runs low white count and low hemoglobin. Patient also supposed to get Procrit. Patient's had repeated UTIs. Patient now presents with having fever. Decreased appetite tired rundown. Was able to lose all walker recently. At home patient had been receiving TPN via central line. And has had this for close to 4 months. She is also on eliquis for pulmonary embolism. Patient also had developed methotrexate-induced lung injury. She was admonished hospital. The patient was transferred here. Or possible UTI sepsis septic shock. She received fluid boluses. Was placed on levo fed. Patient could not be transferred to [facility] as they had no beds. She was noted to be hypotensive in the ER but the positive lactic acid. Patient is on a BiPAP this morning. Daughter is available to give much history. Consultations including infectious disease, nephrology, marketing operations assistant on the case. Also according to patient's had removal of about a foot of small interesting many years ago and has had nutritional problems for a long time Review of systems: Cannot be obtained as patient is rather short of breath with a BiPAP initial history as above Past medical history to include: Recurrent UTI, rheumatoid arthritis, hypothyroid, hypertension, anemia, gait dysfunction using a walker, rheumatoid arthritis, side effects of methotrexate. He will of partial small bowel/interstitial bypass Social history: . No smoking or alcohol Family history: Cancer Physical examination: VITAL SIGNS: 97.8, 81, 18, 75/41, 95% on BiPAP upon presentation GENERAL: BMI 34, laying in bed, tired, BiPAP. EYES: Pupils equal. Conjunctiva normal. HEENT: External appearance of nose and ears normal, oral cavity dry. NECK: JVD unable to assess; masses not palpable. HEART: First and second heart sounds are normal; no edema. LUNGS: Respiratory rate increased; decreased breath sounds. ABDOMEN: Soft, nontender, liver spleen not palpable, no masses palpable. PSYCH: Lethargic, unable to assessl. NEUROLOGICAL: Cranial nerves grossly intact; no facial asymmetry, power and sensation grossly intact. LYMPHATICS: No lymph nodes palpable in the axilla and neck INVESTIGATIONS, reviewed in the clinical context: White count 33.3 hemoglobin 7.6 platelets 57 sodium 1:30 potassium 3.4 BUN 133 creatinine 2.24 potassium 7.7 phosphorus 2.1 AST 41 ALT 17 proBNP 7930 cortisol 24 UA positive for new questions, WBC ABG: PH 7.4 pCO2 47 pO2 76 Chest x-ray film personally reviewed by me-portable/poor inspiration/venous prominence/atelectasis Telemetry strips personally reviewed by me: Sinus tachycardia Assessment and plan: -Septic/hypovolemic shock possibly related to UTI could be catheter related IV fluids, levo fed -Acute kidney injury, prerenal component. Possibly ATN from hypotension Follow eyes and nose. Nephrology consult. -Chronic kidney disease, baseline creatinine unknown Follow renal function. Consult nephrology. -Chronic medical debility, recurrent hospitalizations -Gait dysfunction, using a walker at baseline -Chronic pulmonary embolism On eliquis -Hyperuricemia On allopurinol -Chronic hypotension On midodrine. Continue Levothroid -Hypothyroidism Synthroid 200 g daily -Anemia of chronic kidney disease and likely other multifactorial Has been on Procrit -Acute hypoxic respiratory failure, from possibly pulmonary edema BiPAP -Acute UTI with cystitis, recurrent IV cefepime. -Chronic malnutrition On TPN and lipids. ICU. IV levo fed. BiPAP. DP lipids. IV cefepime. IV daptomycin. Follow I's and os. Consultation to marketing operations assistant, nephrology, infectious disease. 2-D echo pending. Abdominal ultrasound. Care was discussed with the daughter the of the bedside. Prognosis guarded.. Past Medical History Past Medical History: Rheumatoid Arthritis (RA), Thyroid Disorder Additional Past Medical History / Comment(s): lupus, on RX for UTI History of Any Multi-Drug Resistant Organisms: None Reported Past Surgical History: Appendectomy, Bowel Resection, Hysterectomy, Orthopedic Surgery Additional Past Surgical History / Comment(s): removal of 10-12" small intestine " to loose wt", arthroscopy rt shoulder, chioma cataracts Past Anesthesia/Blood Transfusion Reactions: No Reported Reaction Past Psychological History: No Psychological Hx Reported Smoking Status: Unknown if ever smoked Past Alcohol Use History: None Reported Past Drug Use History: None Reported - Past Family History Sister(s) Family Medical History: Cancer Medications and Allergies Home Medications Medication Instructions Recorded Confirmed Type FLUoxetine HCL [PROzac] 60 mg PO DAILY 03/10/20 07/10/21 History Levothyroxine Sodium [Synthroid] 200 mcg PO DAILY 03/10/20 07/10/21 History Multivitamins, Thera [Multivitamin 1 tab PO DAILY 03/10/20 07/10/21 History (formulary)] Allopurinol [Zyloprim] 100 mg PO DAILY 07/10/21 07/10/21 History Apixaban [Eliquis] 5 mg PO BID 07/10/21 07/10/21 History Bumetanide [Bumex] 1 mg PO BID 07/10/21 07/10/21 History Cholecalciferol [Vitamin D3 (25 25 mcg PO DAILY 07/10/21 07/10/21 History Mcg = 1000 Iu)] Diphenoxylate HCl/Atropine 1 tab PO TID PRN 07/10/21 07/10/21 History [Lomotil 2.5-0.025 mg Tablet] Famotidine [Pepcid] 20 mg PO HS 07/10/21 07/10/21 History Ferrous Sulfate [Feosol] 325 mg PO DAILY 07/10/21 07/10/21 History HYDROcodone/APAP 5-325MG [[place] 1 tab PO BID PRN 07/10/21 07/10/21 History 5-325] Loperamide [Imodium] 2 mg PO BID PRN 07/10/21 07/10/21 History Magnesium Oxide 400 mg PO BID 07/10/21 07/10/21 History Melatonin 3 mg PO HS PRN 07/10/21 07/10/21 History Midodrine HCl [ProAmatine] 10 mg PO AC-TID 07/10/21 07/10/21 History Omeprazole 20 mg PO AC-BRKFST 07/10/21 07/10/21 History Ondansetron [Zofran] 4 mg PO Q6H PRN 07/10/21 07/10/21 History Spironolactone [Aldactone] 25 mg PO DAILY 07/10/21 07/10/21 History Sulfamethox-Tmp 800-160Mg [Bactrim 1 tab PO BID 07/10/21 07/10/21 History DS 800-160 mg] Thiamine [Vitamin B-1] 100 mg PO DAILY 07/10/21 07/10/21 History Zinc Sulfate [Orazinc] 220 mg PO DAILY 07/10/21 07/10/21 History Allergies Allergy/AdvReac Type Severity Reaction Status Date / Time Penicillins Allergy Unknown Verified 07/10/21 17:58 Physical Exam Vitals: Vital Signs Temp Pulse Resp BP Pulse Ox 07/10/21 08:32 86 100/51 97 07/10/21 07:27 81 18 103/55 97 07/10/21 06:45 97.7 F 81 16 106/61 98 07/10/21 06:00 84 18 109/51 98 07/10/21 05:30 80 18 106/50 98 07/10/21 05:00 83 14 107/57 98 07/10/21 04:45 81 16 115/58 98 07/10/21 04:30 87 20 120/56 98 07/10/21 04:25 81 18 112/60 98 07/10/21 04:20 80 19 81/42 98 07/10/21 04:10 83 20 78/46 98 07/10/21 04:05 78 16 82/44 98 07/10/21 04:00 80 18 84/44 97 07/10/21 03:55 79 21 77/42 98 07/10/21 03:49 81 13 84/38 94 L 07/10/21 03:34 97.8 F 81 18 75/41 95 Intake and Output 07/09/21 07/10/21 07/10/21 22:59 06:59 14:59 Other: Weight 77.111 kg Results CBC & Chem 7: 07/10/21 09:36 07/10/21 09:36 Labs: Abnormal Lab Results - Last 24 Hours (Table) 07/10/21 07/10/21 07/10/21 Range/Units 06:00 06:50 07:18 ABG pCO2 47 H (35-45) mmHg ABG pO2 76 L (83-108) mmHg ABG HCO3 30 H (21-25) mmol/L ABG Total CO2 32 H (19-24) mmol/L POC Glucose (mg/dL) 200 H (75-99) mg/dL Plasma Lactic Acid [place] 2.3 H* (0.7-2.0) mmol/L 07/10/21 Range/Units 08:42 ABG pCO2 (35-45) mmHg ABG pO2 (83-108) mmHg ABG HCO3 (21-25) mmol/L ABG Total CO2 (19-24) mmol/L POC Glucose (mg/dL) 216 H (75-99) mg/dL Plasma Lactic Acid [place] (0.7-2.0) mmol/L
[2021-07-10] MEDS: CEFEPIME 2 GM in SODIUM CHLORIDE 0.9% 100 ML IVPB SCH (20:45)
[2021-07-10 23:08] LABS: Glucose,Whole Blood 154 mg/dL (75-99)
--- NOTE | 2021-07-10 23:32 | P.CONS ---
History of Present Illness - Reason for Consult Consult date: 07/10/21 sepsis Requesting physician: Ascencion Valdivia - Chief Complaint weakness x few days - History of Present Illness History of present illness : Patient is 76-year-old female with a past medical history taken for RA history of PE patient chronic insufficiency history of recurrent urinary tract infection and has been denied about multiple hospital in the area recently patient also have a central line and has been receiving TPN on the last 4 months patient presenting to the outside facility for evaluation of short of generalized weakness and mental status changes and fever patient was evaluated at the outside facility she received fluid boluses was started on nor epinephrine and subsequently was transferred to the [facility] ER subsequently to ICU for further evaluation on presentation to the hospital patient has been afebrile no fever has been recorded subsequently patient currently on 20 mics of Levophed patient did have a white count of 33,000 with a left shift did have elevated BUN and creatinine liver exams are mildly elevated patient did have positive urine with moderate leukocyte esterase 20 WBC patient was started on vancomycin and Unasyn infectious was consulted for further management of antibiotic therapy patient did have a chest x-ray poor inspiration and mild pulmonary congestion no mention of any consolidation patient did have a abdominal bladder ultrasound no evident hydronephrosis, patient is currently lethargic and is unable to provide any history most information has been obtained from review the chart talking nursing staff Review of system: Positive point has been mentioned in HPI complete review could not be obtained because of underlying mental status Past medical history : Reviewed, documented below Past surgical history : Reviewed, documented below Social history: Reviewed, documented below Medications: Reviewed, as documented below EXAMINATION: Vital sigans= Reviewed and documented below GENERAL DESCRIPTION: Elderly female lying in bed, no distress. No tachypnea or accessory muscle of respiration use. HEENT: Shows Pallor , no scleral icterus. Oral mucous membrane is dry. NECK: Trachea central, no thyromegaly. LUNGS: Unlabored breathing. Decreased breath sound at bases. No wheeze or crackle. HEART: S1, S2, regular rate and rhythm. ABDOMEN: Soft, no tenderness , guarding or rigidity EXTREMITIES: No edema of feet. SKIN: No rash, no masses palpable. NEUROLOGICAL: The patient is lethargic orientation could not determine LABS AND RADIOLOGY: Reviewed results see below Assessment : Patient presented to hospital with sepsis in this patient who did have a hypotension requiring pressor support he did have elevated white count source could be his urinary or related to the central line infection which has been there for more than 4 months now and the patient has been receiving TPN through, no clear evidence of any pneumonia seen on the chest x-ray underlying abdominal pathology need to be considered as well 2-patient with borderline kidney function and risk of neurotoxicity from vancomycin Plan: 1-discontinue vancomycin and Unasyn 2-start the patient on daptomycin and cefepime 3-blood cultures from the central line as well as peripherally We will follow on clinical condition and cultures to further adjust medication if needed Thank you for this consultation we will follow the patient along with you Past Medical History Past Medical History: Rheumatoid Arthritis (RA), Thyroid Disorder Additional Past Medical History / Comment(s): lupus, on RX for UTI History of Any Multi-Drug Resistant Organisms: None Reported Past Surgical History: Appendectomy, Bowel Resection, Hysterectomy, Orthopedic Surgery Additional Past Surgical History / Comment(s): removal of 10-12" small intestine " to loose wt", arthroscopy rt shoulder, chioma cataracts Past Anesthesia/Blood Transfusion Reactions: No Reported Reaction Past Psychological History: No Psychological Hx Reported Smoking Status: Unknown if ever smoked Past Alcohol Use History: None Reported Past Drug Use History: None Reported - Past Family History Sister(s) Family Medical History: Cancer Medications and Allergies Home Medications Medication Instructions Recorded Confirmed Type FLUoxetine HCL [PROzac] 60 mg PO DAILY 03/10/20 07/10/21 History Levothyroxine Sodium [Synthroid] 200 mcg PO DAILY 03/10/20 07/10/21 History Multivitamins, Thera [Multivitamin 1 tab PO DAILY 03/10/20 07/10/21 History (formulary)] Allopurinol [Zyloprim] 100 mg PO DAILY 07/10/21 07/10/21 History Apixaban [Eliquis] 5 mg PO BID 07/10/21 07/10/21 History Bumetanide [Bumex] 1 mg PO BID 07/10/21 07/10/21 History Cholecalciferol [Vitamin D3 (25 25 mcg PO DAILY 07/10/21 07/10/21 History Mcg = 1000 Iu)] Diphenoxylate HCl/Atropine 1 tab PO TID PRN 07/10/21 07/10/21 History [Lomotil 2.5-0.025 mg Tablet] Famotidine [Pepcid] 20 mg PO HS 07/10/21 07/10/21 History Ferrous Sulfate [Feosol] 325 mg PO DAILY 07/10/21 07/10/21 History HYDROcodone/APAP 5-325MG [Child[place]old 1 tab PO BID PRN 07/10/21 07/10/21 History 5-325] Loperamide [Imodium] 2 mg PO BID PRN 07/10/21 07/10/21 History Magnesium Oxide 400 mg PO BID 07/10/21 07/10/21 History Melatonin 3 mg PO HS PRN 07/10/21 07/10/21 History Midodrine HCl [ProAmatine] 10 mg PO AC-TID 07/10/21 07/10/21 History Omeprazole 20 mg PO AC-BRKFST 07/10/21 07/10/21 History Ondansetron [Zofran] 4 mg PO Q6H PRN 07/10/21 07/10/21 History Spironolactone [Aldactone] 25 mg PO DAILY 07/10/21 07/10/21 History Sulfamethox-Tmp 800-160Mg [Bactrim 1 tab PO BID 07/10/21 07/10/21 History DS 800-160 mg] Thiamine [Vitamin B-1] 100 mg PO DAILY 07/10/21 07/10/21 History Zinc Sulfate [Orazinc] 220 mg PO DAILY 07/10/21 07/10/21 History Allergies Allergy/AdvReac Type Severity Reaction Status Date / Time Penicillins Allergy Unknown Verified 07/10/21 17:58 Physical Exam Vitals: Vital Signs Temp Pulse Resp BP Pulse Ox 07/10/21 08:32 86 100/51 97 07/10/21 07:27 81 18 103/55 97 07/10/21 06:45 97.7 F 81 16 106/61 98 07/10/21 06:00 84 18 109/51 98 07/10/21 05:30 80 18 106/50 98 07/10/21 05:00 83 14 107/57 98 07/10/21 04:45 81 16 115/58 98 07/10/21 04:30 87 20 120/56 98 07/10/21 04:25 81 18 112/60 98 07/10/21 04:20 80 19 81/42 98 07/10/21 04:10 83 20 78/46 98 07/10/21 04:05 78 16 82/44 98 07/10/21 04:00 80 18 84/44 97 07/10/21 03:55 79 21 77/42 98 07/10/21 03:49 81 13 84/38 94 L 07/10/21 03:34 97.8 F 81 18 75/41 95 Intake and Output 07/09/21 07/10/21 07/10/21 22:59 06:59 14:59 Other: Weight 77.111 kg 77.111 kg Results CBC & Chem 7: 07/10/21 09:36 07/10/21 09:36 Labs: Abnormal Lab Results - Last 24 Hours (Table) 07/10/21 07/10/21 07/10/21 Range/Units 06:00 06:50 07:18 WBC (3.8-10.6) k/uL RBC (3.80-5.40) m/uL Hgb (11.4-16.0) gm/dL Hct (34.0-46.0) % RDW (11.5-15.5) % Plt Count (150-450) k/uL Neutrophils # (Manual) (1.3-7.7) k/uL Monocytes # (Manual) (0-1.0) k/uL ABG pCO2 47 H (35-45) mmHg ABG pO2 76 L (83-108) mmHg ABG HCO3 30 H (21-25) mmol/L ABG Total CO2 32 H (19-24) mmol/L Sodium (137-145) mmol/L Potassium (3.5-5.1) mmol/L Chloride (98-107) mmol/L BUN (7-17) mg/dL Creatinine (0.52-1.04) mg/dL Glucose (74-99) mg/dL POC Glucose (mg/dL) 200 H (75-99) mg/dL Plasma Lactic Acid Italo 2.3 H* (0.7-2.0) mmol/L Calcium (8.4-10.2) mg/dL Total Bilirubin (0.2-1.3) mg/dL AST (14-36) U/L Alkaline Phosphatase (38-126) U/L Total Protein (6.3-8.2) g/dL Albumin (3.5-5.0) g/dL 07/10/21 07/10/21 07/10/21 Range/Units 08:42 09:36 09:36 WBC 33.3 H (3.8-10.6) k/uL RBC 2.89 L (3.80-5.40) m/uL Hgb 7.6 L D (11.4-16.0) gm/dL Hct 24.3 L (34.0-46.0) % RDW 19.5 H (11.5-15.5) % Plt Count 57 L D (150-450) k/uL Neutrophils # (Manual) 29.30 H (1.3-7.7) k/uL Monocytes # (Manual) 2.33 H (0-1.0) k/uL ABG pCO2 (35-45) mmHg ABG pO2 (83-108) mmHg ABG HCO3 (21-25) mmol/L ABG Total CO2 (19-24) mmol/L Sodium 130 L (137-145) mmol/L Potassium 3.4 L (3.5-5.1) mmol/L Chloride 94 L (98-107) mmol/L BUN 133 H* (7-17) mg/dL Creatinine 2.24 H (0.52-1.04) mg/dL Glucose 142 H (74-99) mg/dL POC Glucose (mg/dL) 216 H (75-99) mg/dL Plasma Lactic Acid Italo (0.7-2.0) mmol/L Calcium 7.7 L (8.4-10.2) mg/dL Total Bilirubin 4.1 H (0.2-1.3) mg/dL AST 41 H (14-36) U/L Alkaline Phosphatase 231 H (38-126) U/L Total Protein 4.8 L (6.3-8.2) g/dL Albumin 2.0 L (3.5-5.0) g/dL
[2021-07-11] MEDS ORDERED: AMPICILLIN-SULBACTAM 3 GM in SODIUM CHLORIDE 0.9% 100 ML IVPB SCH (01:00)
[2021-07-11] MEDS: SODIUM CHLORIDE 0.9% 1,000 ML IV SCH (02:46)
[2021-07-11] MEDS: NOREPINEPHRINE 32 MG in SODIUM CHLORIDE 0.9% 218 ML IV SCH (05:40)
[2021-07-11 05:43] LABS: Glucose,Whole Blood 175 mg/dL (75-99)
[2021-07-11] MEDS: INSULIN ASPART (NovoLOG) 100 UNIT/ML VIAL SQ SCH ×2 (05:45→11:08)
[2021-07-11 05:47] LABS: Anisocytosis Slight; Basophils # (A) 0.1 k/uL (0-0.2); Basophils % (A) 0 %; Eosinophils % (A) 0 %; HCT 21.7 % (34.0-46.0); HGB 7.3 gm/dL (11.4-16.0); Hypochromasia Moderate; Lymphocytes # (A) 1.8 k/uL (1.0-4.8); Lymphocytes % (A) 5 %; MCH 29.2 pg (25.0-35.0); MCHC 33.8 g/dL (31.0-37.0); MCV 86.3 fL (80.0-100.0); Mean Platelet Volume 12.8; Monocytes # (A) 0.8 k/uL (0-1.0); Monocytes % (A) 2 %; Neutrophils # (A) 34.7 k/uL (1.3-7.7); Neutrophils % (A) 91 %; RBC 2.51 m/uL (3.80-5.40); RDW 19.7 % (11.5-15.5); WBC 38.1 k/uL (3.8-10.6)
[2021-07-11 05:50] LABS: Platelet Count 100 k/uL (150-450)
[2021-07-11 05:54] LABS: Ionized Calcium 4.4 mg/dL (4.5-5.3)
[2021-07-11 06:05] LABS: Albumin 2.1 g/dL (3.5-5.0); Calcium 8.4 mg/dL (8.4-10.2); Phosphorus 4.9 mg/dL (2.5-4.5); Potassium 4.8 mmol/L (3.5-5.1); Total Bilirubin 6.1 mg/dL (0.2-1.3)
[2021-07-11 06:11] LABS: INR 1.6 (<1.2); Prothrombin Time 16.3 sec (9.0-12.0)
[2021-07-11] MEDS ORDERED: LACTATED RINGERS 1,000 ML IV SCH (07:30)
--- NOTE | 2021-07-11 07:30 | P.PN ---
Subjective Progress Note Date: 07/11/21 Principal diagnosis: Follow-up for acute kidney injury secondary to ATN, suspected septic shock, chronic kidney disease Baseline creatinine 1.3-1.5 secondary to nephrosclerosis and UTI. She was on levo fed and antibiotics on chronic TPN because of bowel surgery for weight loss in the remote past. She is confused and agitated currently on O2 nasal cannula. Normal sinus rhythm Vital signs are stable she is maintained 116 0 mL of urine output with an intake of 4578. Creatinine is 2.26, blood cultures and urine cultures are pending History of present illness: Patient is a 76-year-old female seen in consultation for acute kidney injury On chronic kidney disease. Patient has chronic kidney disease stage IIIa with baseline creatinine 1.3-1.5 secondary to nephrosclerosis. Patient was transferred to this facility from [facility]. She presented there with generalized weakness fever and altered mental status. She is currently being treated for UTI. Patient is currently on BiPAP and is not able to provide any history. It appears patient has had multiple urinary tract infections and has been treated with antibiotics. She did receive 500 mL bolus and is currently maintained on half-normal saline at 90 mL an hour. She is also on Levophed. Patient's blood pressure was in the systolic 60s to 70s on admission and was up to 100/50 one this morning. She is receiving another liter bolus with normal saline. Objective - Vital Signs Vital signs: Vital Signs Temp 97.7 F 07/11/21 03:45 Pulse 116 H 07/11/21 07:00 Resp 17 07/11/21 07:00 BP 99/63 07/11/21 07:00 Pulse Ox 91 L 07/11/21 07:00 Intake & Output 07/10/21 07/11/21 07/11/21 18:59 06:59 18:59 Intake Total 2953 1625.000 125 Output Total 570 590 75 Balance 2383 1035.000 50 Weight 92.6 kg 90.7 kg Intake: IV 2953 1375 125 Ampicillin-Sulbactam 3 gm 100 In Sodium Chloride 0.9% 100 ml @ 200 mls/hr IVPB Q12H [facility] Rx#:[id number] Fat Emulsion 20% 250 ml 63 In Empty Bag 1 bag @ 21 mls/hr IV MoWeFr [facility] Rx#: [id number] Mvi, Adult No.4 with Vit 90 K 10 ml Trace (Conc-1Ml/ Dose) 1 ml In Amino Acid 5%-D15w+Lytes*E* 1,000 ml @ 30 mls/hr IV .Q24H ONE Rx#:[id number] Potassium Chloride 20 meq 200 In Water For Injection 1 100ml.bag @ 50 mls/hr IVPB Q2H [facility] Rx#: [id number] Sodium Chloride 0.9% 1, 1250 1250 125 000 ml @ 125 mls/hr IV . Q8H [facility] Rx#:[id number] Sodium Chloride 0.9% 1, 1000 000 ml @ 999 mls/hr IV . Q1H1M [facility] Rx#:[id number] Vancomycin 1,500 mg In 250 125 Sodium Chloride 0.9% 250 ml @ 125 mls/hr IVPB ONCE [facility] Rx#:[id number] Intake, IV Titration 250.000 Amount Norepinephrine 32 mg In 250.000 Sodium Chloride 0.9% 218 ml @ 0.05 MCG/KG/MIN 3. 984 mls/hr IV .Q24H [facility] Rx#:[id number] Output: Urine 570 590 75 Other: Voiding Method Indwelling Catheter Indwelling Catheter # Bowel Movements 1 Vital signs are stable. On Levophed. General: On nasal cannula oxygen Lungs: Breath sounds normal no adventitious sounds HEART: Rate and Rhythm are regular. Normal sinus rhythm on the monitor ABDOMEN: Soft, no distention. EXTREMITITES: Trace edema. Neurologically arousable but confused - Labs CBC & Chem 7: 07/11/21 04:38 07/11/21 04:38 Labs: Abnormal Lab Results - Last 24 Hours (Table) 07/10/21 07/10/21 07/10/21 Range/Units 06:00 06:00 07:18 WBC (3.8-10.6) k/uL RBC (3.80-5.40) m/uL Hgb (11.4-16.0) gm/dL Hct (34.0-46.0) % RDW (11.5-15.5) % Plt Count (150-450) k/uL Neutrophils # (1.3-7.7) k/uL Neutrophils # (Manual) (1.3-7.7) k/uL Monocytes # (Manual) (0-1.0) k/uL PT (9.0-12.0) sec INR (<1.2) APTT (22.0-30.0) sec ABG pCO2 47 H (35-45) mmHg ABG pO2 76 L (83-108) mmHg ABG HCO3 30 H (21-25) mmol/L ABG Total CO2 32 H (19-24) mmol/L Sodium (137-145) mmol/L Potassium (3.5-5.1) mmol/L Chloride (98-107) mmol/L Carbon Dioxide (22-30) mmol/L BUN (7-17) mg/dL Creatinine (0.52-1.04) mg/dL Glucose (74-99) mg/dL POC Glucose (mg/dL) (75-99) mg/dL Plasma Lactic Acid Italo 2.3 H* (0.7-2.0) mmol/L Calcium (8.4-10.2) mg/dL Ionized Calcium Agustina (4.5-5.3) mg/dL Phosphorus (2.5-4.5) mg/dL Total Bilirubin (0.2-1.3) mg/dL AST (14-36) U/L Alkaline Phosphatase (38-126) U/L Total Protein (6.3-8.2) g/dL Albumin (3.5-5.0) g/dL Urine Appearance (Clear) Urine Protein (Negative) Urine Blood (Negative) Ur Leukocyte Esterase (Negative) Urine WBC (0-5) /hpf Urine Mucus (None) /hpf Stool Occult Blood (Negative) Crossmatch See Detail 07/10/21 07/10/21 07/10/21 Range/Units 08:42 09:36 09:36 WBC 33.3 H (3.8-10.6) k/uL RBC 2.89 L (3.80-5.40) m/uL Hgb 7.6 L D (11.4-16.0) gm/dL Hct 24.3 L (34.0-46.0) % RDW 19.5 H (11.5-15.5) % Plt Count 57 L D (150-450) k/uL Neutrophils # (1.3-7.7) k/uL Neutrophils # (Manual) 29.30 H (1.3-7.7) k/uL Monocytes # (Manual) 2.33 H (0-1.0) k/uL PT (9.0-12.0) sec INR (<1.2) APTT (22.0-30.0) sec ABG pCO2 (35-45) mmHg ABG pO2 (83-108) mmHg ABG HCO3 (21-25) mmol/L ABG Total CO2 (19-24) mmol/L Sodium 130 L (137-145) mmol/L Potassium 3.4 L (3.5-5.1) mmol/L Chloride 94 L (98-107) mmol/L Carbon Dioxide (22-30) mmol/L BUN 133 H* (7-17) mg/dL Creatinine 2.24 H (0.52-1.04) mg/dL Glucose 142 H (74-99) mg/dL POC Glucose (mg/dL) 216 H (75-99) mg/dL Plasma Lactic Acid Italo (0.7-2.0) mmol/L Calcium 7.7 L (8.4-10.2) mg/dL Ionized Calcium Agustina (4.5-5.3) mg/dL Phosphorus (2.5-4.5) mg/dL Total Bilirubin 4.1 H (0.2-1.3) mg/dL AST 41 H (14-36) U/L Alkaline Phosphatase 231 H (38-126) U/L Total Protein 4.8 L (6.3-8.2) g/dL Albumin 2.0 L (3.5-5.0) g/dL Urine Appearance (Clear) Urine Protein (Negative) Urine Blood (Negative) Ur Leukocyte Esterase (Negative) Urine WBC (0-5) /hpf Urine Mucus (None) /hpf Stool Occult Blood (Negative) Crossmatch 07/10/21 07/10/21 07/10/21 Range/Units 09:39 17:31 18:02 WBC (3.8-10.6) k/uL RBC (3.80-5.40) m/uL Hgb (11.4-16.0) gm/dL Hct (34.0-46.0) % RDW (11.5-15.5) % Plt Count (150-450) k/uL Neutrophils # (1.3-7.7) k/uL Neutrophils # (Manual) (1.3-7.7) k/uL Monocytes # (Manual) (0-1.0) k/uL PT (9.0-12.0) sec INR (<1.2) APTT (22.0-30.0) sec ABG pCO2 (35-45) mmHg ABG pO2 (83-108) mmHg ABG HCO3 (21-25) mmol/L ABG Total CO2 (19-24) mmol/L Sodium (137-145) mmol/L Potassium (3.5-5.1) mmol/L Chloride (98-107) mmol/L Carbon Dioxide (22-30) mmol/L BUN (7-17) mg/dL Creatinine (0.52-1.04) mg/dL Glucose (74-99) mg/dL POC Glucose (mg/dL) 106 H (75-99) mg/dL Plasma Lactic Acid Italo (0.7-2.0) mmol/L Calcium (8.4-10.2) mg/dL Ionized Calcium Agustina (4.5-5.3) mg/dL Phosphorus 2.1 L (2.5-4.5) mg/dL Total Bilirubin (0.2-1.3) mg/dL AST (14-36) U/L Alkaline Phosphatase (38-126) U/L Total Protein (6.3-8.2) g/dL Albumin (3.5-5.0) g/dL Urine Appearance Cloudy H (Clear) Urine Protein Trace H (Negative) Urine Blood Trace H (Negative) Ur Leukocyte Esterase Moderate H (Negative) Urine WBC 20 H (0-5) /hpf Urine Mucus Rare H (None) /hpf Stool Occult Blood (Negative) Crossmatch 07/10/21 07/11/21 07/11/21 Range/Units 23:06 04:38 04:38 WBC 38.1 H (3.8-10.6) k/uL RBC 2.51 L (3.80-5.40) m/uL Hgb 7.3 L (11.4-16.0) gm/dL Hct 21.7 L (34.0-46.0) % RDW 19.7 H (11.5-15.5) % Plt Count 100 L D (150-450) k/uL Neutrophils # 34.7 H (1.3-7.7) k/uL Neutrophils # (Manual) (1.3-7.7) k/uL Monocytes # (Manual) (0-1.0) k/uL PT (9.0-12.0) sec INR (<1.2) APTT (22.0-30.0) sec ABG pCO2 (35-45) mmHg ABG pO2 (83-108) mmHg ABG HCO3 (21-25) mmol/L ABG Total CO2 (19-24) mmol/L Sodium 135 L (137-145) mmol/L Potassium (3.5-5.1) mmol/L Chloride (98-107) mmol/L Carbon Dioxide 20 L (22-30) mmol/L BUN 133 H* (7-17) mg/dL Creatinine 2.26 H (0.52-1.04) mg/dL Glucose 156 H (74-99) mg/dL POC Glucose (mg/dL) 154 H (75-99) mg/dL Plasma Lactic Acid Italo (0.7-2.0) mmol/L Calcium (8.4-10.2) mg/dL Ionized Calcium Agustina 4.4 L (4.5-5.3) mg/dL Phosphorus 4.9 H (2.5-4.5) mg/dL Total Bilirubin 6.1 H (0.2-1.3) mg/dL AST 50 H (14-36) U/L Alkaline Phosphatase 240 H (38-126) U/L Total Protein 5.0 L (6.3-8.2) g/dL Albumin 2.1 L (3.5-5.0) g/dL Urine Appearance (Clear) Urine Protein (Negative) Urine Blood (Negative) Ur Leukocyte Esterase (Negative) Urine WBC (0-5) /hpf Urine Mucus (None) /hpf Stool Occult Blood (Negative) Crossmatch 07/11/21 07/11/21 07/11/21 Range/Units 04:38 04:38 05:41 WBC (3.8-10.6) k/uL RBC (3.80-5.40) m/uL Hgb (11.4-16.0) gm/dL Hct (34.0-46.0) % RDW (11.5-15.5) % Plt Count (150-450) k/uL Neutrophils # (1.3-7.7) k/uL Neutrophils # (Manual) (1.3-7.7) k/uL Monocytes # (Manual) (0-1.0) k/uL PT 16.3 H (9.0-12.0) sec INR 1.6 H (<1.2) APTT 39.1 H (22.0-30.0) sec ABG pCO2 (35-45) mmHg ABG pO2 (83-108) mmHg ABG HCO3 (21-25) mmol/L ABG Total CO2 (19-24) mmol/L Sodium (137-145) mmol/L Potassium (3.5-5.1) mmol/L Chloride (98-107) mmol/L Carbon Dioxide (22-30) mmol/L BUN (7-17) mg/dL Creatinine (0.52-1.04) mg/dL Glucose (74-99) mg/dL POC Glucose (mg/dL) 175 H (75-99) mg/dL Plasma Lactic Acid Italo (0.7-2.0) mmol/L Calcium (8.4-10.2) mg/dL Ionized Calcium Agustina (4.5-5.3) mg/dL Phosphorus (2.5-4.5) mg/dL Total Bilirubin (0.2-1.3) mg/dL AST (14-36) U/L Alkaline Phosphatase (38-126) U/L Total Protein (6.3-8.2) g/dL Albumin (3.5-5.0) g/dL Urine Appearance (Clear) Urine Protein (Negative) Urine Blood (Negative) Ur Leukocyte Esterase (Negative) Urine WBC (0-5) /hpf Urine Mucus (None) /hpf Stool Occult Blood (Negative) Crossmatch 07/11/21 Range/Units 05:45 WBC (3.8-10.6) k/uL RBC (3.80-5.40) m/uL Hgb (11.4-16.0) gm/dL Hct (34.0-46.0) % RDW (11.5-15.5) % Plt Count (150-450) k/uL Neutrophils # (1.3-7.7) k/uL Neutrophils # (Manual) (1.3-7.7) k/uL Monocytes # (Manual) (0-1.0) k/uL PT (9.0-12.0) sec INR (<1.2) APTT (22.0-30.0) sec ABG pCO2 (35-45) mmHg ABG pO2 (83-108) mmHg ABG HCO3 (21-25) mmol/L ABG Total CO2 (19-24) mmol/L Sodium (137-145) mmol/L Potassium (3.5-5.1) mmol/L Chloride (98-107) mmol/L Carbon Dioxide (22-30) mmol/L BUN (7-17) mg/dL Creatinine (0.52-1.04) mg/dL Glucose (74-99) mg/dL POC Glucose (mg/dL) (75-99) mg/dL Plasma Lactic Acid Italo (0.7-2.0) mmol/L Calcium (8.4-10.2) mg/dL Ionized Calcium Agustina (4.5-5.3) mg/dL Phosphorus (2.5-4.5) mg/dL Total Bilirubin (0.2-1.3) mg/dL AST (14-36) U/L Alkaline Phosphatase (38-126) U/L Total Protein (6.3-8.2) g/dL Albumin (3.5-5.0) g/dL Urine Appearance (Clear) Urine Protein (Negative) Urine Blood (Negative) Ur Leukocyte Esterase (Negative) Urine WBC (0-5) /hpf Urine Mucus (None) /hpf Stool Occult Blood Positive H (Negative) Crossmatch Microbiology - Last 24 Hours (Table) 07/10/21 18:02 Urine Culture - Preliminary Urine,Voided 07/10/21 09:36 Blood Culture - Final Blood Assessment and Plan Assessment: Impression 1. Acute kidney injury secondary to possibly sepsis., UTI. Creatinine stable urine output is maintained at 1100 mL. On IV fluids. 2. Chronic kidney disease stage III nephrosclerosis 3. Confusion cause not very clear blood cultures are negative urine cultures are negative so far 4. 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 Mild degree of gap acidosis bicarb 20 and gap is 17 lactic acid was 1.6. Likely from diarrhea and acute kidney injury 6. GI bleed 2-year-old man is at 7.3 down from 7.6 Recommendation Continue IV fluids on suggest changing normal saline to lactated Ringer's to improve her acidosis at 1 25 mL an hour
--- NOTE | 2021-07-11 07:34 | XR ---
EXAMINATION TYPE: XR chest 1V DATE OF EXAM: 07/11/2021 COMPARISON: Chest x-ray 07/10/2021 HISTORY: Congestive heart failure TECHNIQUE: Single frontal view of the chest is obtained. FINDINGS: Left-sided central venous catheter shows the distal tip overlying the cavoatrial junction. Patient is rotated. Bilateral airspace disease, low lung volume is noted. No evident pneumothorax or pleural effusion. Interstitium mildly increased. Cardiomediastinal silhouette is stable. Aorta is den se. There are overlying leads and artifacts. IMPRESSION: Correlate for pneumonia or edema.
[2021-07-11] MEDS: PANTOPRAZOLE 40 MG/10 ML VIAL IV SCH (09:10)
[2021-07-11] MEDS: HYDROCORTISONE SUCCINATE 100 MG/2 ML VIAL IV SCH (09:10)
[2021-07-11] MEDS: CEFEPIME 2 GM in SODIUM CHLORIDE 0.9% 100 ML IVPB SCH (09:10)
--- NOTE | 2021-07-11 09:31 | P.PN ---
Subjective Progress Note Date: 07/11/21 Seen at bedside and she moaning in pain. Per the nurse the patient is getting a unit of blood transfusion and is norepinephrine Objective - Vital Signs Vital signs: Vital Signs Temp 97.7 F 07/11/21 03:45 Pulse 116 H 07/11/21 07:00 Resp 17 07/11/21 07:00 BP 99/63 07/11/21 07:00 Pulse Ox 91 L 07/11/21 07:00 Intake & Output 07/10/21 07/11/21 07/11/21 18:59 06:59 18:59 Intake Total 2953 1625.000 125 Output Total 570 590 75 Balance 2383 1035.000 50 Weight 92.6 kg 90.7 kg Intake: IV 2953 1375 125 Ampicillin-Sulbactam 3 gm 100 In Sodium Chloride 0.9% 100 ml @ 200 mls/hr IVPB Q12H [facility] Rx#:[id number] Fat Emulsion 20% 250 ml 63 In Empty Bag 1 bag @ 21 mls/hr IV MoWeFr [facility] Rx#: [id number] Mvi, Adult No.4 with Vit 90 K 10 ml Trace (Conc-1Ml/ Dose) 1 ml In Amino Acid 5%-D15w+Lytes*E* 1,000 ml @ 30 mls/hr IV .Q24H [facility] Rx#:[id number] Potassium Chloride 20 meq 200 In Water For Injection 1 100ml.bag @ 50 mls/hr IVPB Q2H [facility] Rx#: [id number] Sodium Chloride 0.9% 1, 1250 1250 125 000 ml @ 125 mls/hr IV . Q8H [facility] Rx#:[id number] Sodium Chloride 0.9% 1, 1000 000 ml @ 999 mls/hr IV . Q1H1M [facility] Rx#:[id number] Vancomycin 1,500 mg In 250 125 Sodium Chloride 0.9% 250 ml @ 125 mls/hr IVPB ONCE ONE Rx#:[id number] Intake, IV Titration 250.000 Amount Norepinephrine 32 mg In 250.000 Sodium Chloride 0.9% 218 ml @ 0.05 MCG/KG/MIN 3. 984 mls/hr IV .Q24H [facility] Rx#:[id number] Output: Urine 570 590 75 Other: Voiding Method Indwelling Catheter Indwelling Catheter # Bowel Movements 1 - Exam GENERAL: The patient is lying in bed and is moderate acute distress. She is moaning in pain and face looks pale. NEUROLOGICAL: Limited because of her condition/cooperation. Higher mental function: The patient is very drowsy but is oriented to self. She stated she is in the hospital. She could not tell me year or month. She is able to name an object (pen). She is following few simple commands. Language is limited to asses. Cranial nerves: The pupils are round, equal and reactive to light. No facial weakness. Has hypophonia. Otherwise rest of cranial nerves could not be assessed because of her condition. Motor: Gait is deferred. The strength is lifting bilateral upper extremities above gravity and wiggling toes. Could not assess individual muscles because of her cooperation. Normal tone and bulk. Cerebellum: Could not asses because of her cooperation. Sensation: Could not assess because of her cooperation. Reflexes (right/left): Could not assess because of her pain. Plantars are upgoing bilaterally at baseline. WORK-UP: White blood cell is 33.3 thousand and currently is 38.1. Most current calcium is 8.4. AST of 50 and ALT of 20 Urinalysis is cloudy, there is a trace of protein, trace of blood, moderate leukocyte esterase, urine white blood cells 20. Stool occult blood is positive. INR is 1.6, PTT of 39.1 and that PT is 16.3. Initial presentation the creatinine is 2.4 and currently eats 2.6. Blood cultures is reported as gram-negative rods Cultures is pending CT of the head was reported as cerebral atrophy. Hydrocephalus. No change compared to exam earlier today. I personally reviewed the CT of the head and the patient did not have an earlier CT. The CT of the head does not reveal any acute ischemia or subacute ischemia or bleed. I felt the ventricles lateral third and fourth ventricle are slightly more dilated compared to the atrophy suggestive of possible radiographic normal pressure hydrocephalus. CT of the lumbar spine is reported as degenerative mild disc change. There is mild compression fracture L1 can be relatively acute fracture. - Labs CBC & Chem 7: 07/11/21 04:38 07/11/21 04:38 Labs: Abnormal Lab Results - Last 24 Hours (Table) 07/10/21 07/10/21 07/10/21 Range/Units 06:00 08:42 09:36 WBC (3.8-10.6) k/uL RBC (3.80-5.40) m/uL Hgb (11.4-16.0) gm/dL Hct (34.0-46.0) % RDW (11.5-15.5) % Plt Count (150-450) k/uL Neutrophils # (1.3-7.7) k/uL Neutrophils # (Manual) (1.3-7.7) k/uL Monocytes # (Manual) (0-1.0) k/uL PT (9.0-12.0) sec INR (<1.2) APTT (22.0-30.0) sec Sodium 130 L (137-145) mmol/L Potassium 3.4 L (3.5-5.1) mmol/L Chloride 94 L (98-107) mmol/L Carbon Dioxide (22-30) mmol/L BUN 133 H* (7-17) mg/dL Creatinine 2.24 H (0.52-1.04) mg/dL Glucose 142 H (74-99) mg/dL POC Glucose (mg/dL) 216 H (75-99) mg/dL Calcium 7.7 L (8.4-10.2) mg/dL Ionized Calcium Agustina (4.5-5.3) mg/dL Phosphorus (2.5-4.5) mg/dL Total Bilirubin 4.1 H (0.2-1.3) mg/dL AST 41 H (14-36) U/L Alkaline Phosphatase 231 H (38-126) U/L Total Protein 4.8 L (6.3-8.2) g/dL Albumin 2.0 L (3.5-5.0) g/dL Urine Appearance (Clear) Urine Protein (Negative) Urine Blood (Negative) Ur Leukocyte Esterase (Negative) Urine WBC (0-5) /hpf Urine Mucus (None) /hpf Stool Occult Blood (Negative) Crossmatch See Detail 07/10/21 07/10/21 07/10/21 Range/Units 09:36 09:39 17:31 WBC 33.3 H (3.8-10.6) k/uL RBC 2.89 L (3.80-5.40) m/uL Hgb 7.6 L D (11.4-16.0) gm/dL Hct 24.3 L (34.0-46.0) % RDW 19.5 H (11.5-15.5) % Plt Count 57 L D (150-450) k/uL Neutrophils # (1.3-7.7) k/uL Neutrophils # (Manual) 29.30 H (1.3-7.7) k/uL Monocytes # (Manual) 2.33 H (0-1.0) k/uL PT (9.0-12.0) sec INR (<1.2) APTT (22.0-30.0) sec Sodium (137-145) mmol/L Potassium (3.5-5.1) mmol/L Chloride (98-107) mmol/L Carbon Dioxide (22-30) mmol/L BUN (7-17) mg/dL Creatinine (0.52-1.04) mg/dL Glucose (74-99) mg/dL POC Glucose (mg/dL) 106 H (75-99) mg/dL Calcium (8.4-10.2) mg/dL Ionized Calcium Agustina (4.5-5.3) mg/dL Phosphorus 2.1 L (2.5-4.5) mg/dL Total Bilirubin (0.2-1.3) mg/dL AST (14-36) U/L Alkaline Phosphatase (38-126) U/L Total Protein (6.3-8.2) g/dL Albumin (3.5-5.0) g/dL Urine Appearance (Clear) Urine Protein (Negative) Urine Blood (Negative) Ur Leukocyte Esterase (Negative) Urine WBC (0-5) /hpf Urine Mucus (None) /hpf Stool Occult Blood (Negative) Crossmatch 07/10/21 07/10/21 07/11/21 Range/Units 18:02 23:06 04:38 WBC 38.1 H (3.8-10.6) k/uL RBC 2.51 L (3.80-5.40) m/uL Hgb 7.3 L (11.4-16.0) gm/dL Hct 21.7 L (34.0-46.0) % RDW 19.7 H (11.5-15.5) % Plt Count 100 L D (150-450) k/uL Neutrophils # 34.7 H (1.3-7.7) k/uL Neutrophils # (Manual) (1.3-7.7) k/uL Monocytes # (Manual) (0-1.0) k/uL PT (9.0-12.0) sec INR (<1.2) APTT (22.0-30.0) sec Sodium (137-145) mmol/L Potassium (3.5-5.1) mmol/L Chloride (98-107) mmol/L Carbon Dioxide (22-30) mmol/L BUN (7-17) mg/dL Creatinine (0.52-1.04) mg/dL Glucose (74-99) mg/dL POC Glucose (mg/dL) 154 H (75-99) mg/dL Calcium (8.4-10.2) mg/dL Ionized Calcium Agustina (4.5-5.3) mg/dL Phosphorus (2.5-4.5) mg/dL Total Bilirubin (0.2-1.3) mg/dL AST (14-36) U/L Alkaline Phosphatase (38-126) U/L Total Protein (6.3-8.2) g/dL Albumin (3.5-5.0) g/dL Urine Appearance Cloudy H (Clear) Urine Protein Trace H (Negative) Urine Blood Trace H (Negative) Ur Leukocyte Esterase Moderate H (Negative) Urine WBC 20 H (0-5) /hpf Urine Mucus Rare H (None) /hpf Stool Occult Blood (Negative) Crossmatch 07/11/21 07/11/21 07/11/21 Range/Units 04:38 04:38 04:38 WBC (3.8-10.6) k/uL RBC (3.80-5.40) m/uL Hgb (11.4-16.0) gm/dL Hct (34.0-46.0) % RDW (11.5-15.5) % Plt Count (150-450) k/uL Neutrophils # (1.3-7.7) k/uL Neutrophils # (Manual) (1.3-7.7) k/uL Monocytes # (Manual) (0-1.0) k/uL PT 16.3 H (9.0-12.0) sec INR 1.6 H (<1.2) APTT 39.1 H (22.0-30.0) sec Sodium 135 L (137-145) mmol/L Potassium (3.5-5.1) mmol/L Chloride (98-107) mmol/L Carbon Dioxide 20 L (22-30) mmol/L BUN 133 H* (7-17) mg/dL Creatinine 2.26 H (0.52-1.04) mg/dL Glucose 156 H (74-99) mg/dL POC Glucose (mg/dL) (75-99) mg/dL Calcium (8.4-10.2) mg/dL Ionized Calcium Agustina 4.4 L (4.5-5.3) mg/dL Phosphorus 4.9 H (2.5-4.5) mg/dL Total Bilirubin 6.1 H (0.2-1.3) mg/dL AST 50 H (14-36) U/L Alkaline Phosphatase 240 H (38-126) U/L Total Protein 5.0 L (6.3-8.2) g/dL Albumin 2.1 L (3.5-5.0) g/dL Urine Appearance (Clear) Urine Protein (Negative) Urine Blood (Negative) Ur Leukocyte Esterase (Negative) Urine WBC (0-5) /hpf Urine Mucus (None) /hpf Stool Occult Blood (Negative) Crossmatch 07/11/21 07/11/21 Range/Units 05:41 05:45 WBC (3.8-10.6) k/uL RBC (3.80-5.40) m/uL Hgb (11.4-16.0) gm/dL Hct (34.0-46.0) % RDW (11.5-15.5) % Plt Count (150-450) k/uL Neutrophils # (1.3-7.7) k/uL Neutrophils # (Manual) (1.3-7.7) k/uL Monocytes # (Manual) (0-1.0) k/uL PT (9.0-12.0) sec INR (<1.2) APTT (22.0-30.0) sec Sodium (137-145) mmol/L Potassium (3.5-5.1) mmol/L Chloride (98-107) mmol/L Carbon Dioxide (22-30) mmol/L BUN (7-17) mg/dL Creatinine (0.52-1.04) mg/dL Glucose (74-99) mg/dL POC Glucose (mg/dL) 175 H (75-99) mg/dL Calcium (8.4-10.2) mg/dL Ionized Calcium Agustina (4.5-5.3) mg/dL Phosphorus (2.5-4.5) mg/dL Total Bilirubin (0.2-1.3) mg/dL AST (14-36) U/L Alkaline Phosphatase (38-126) U/L Total Protein (6.3-8.2) g/dL Albumin (3.5-5.0) g/dL Urine Appearance (Clear) Urine Protein (Negative) Urine Blood (Negative) Ur Leukocyte Esterase (Negative) Urine WBC (0-5) /hpf Urine Mucus (None) /hpf Stool Occult Blood Positive H (Negative) Crossmatch Microbiology - Last 24 Hours (Table) 07/10/21 09:36 Blood Culture Gram Stain - Preliminary Blood 07/10/21 18:02 Urine Culture - Preliminary Urine,Voided 07/10/21 09:36 Blood Culture - Final Blood Assessment and Plan Assessment: Altered mental status due to underlying septic encephalopathy and component of metabolic encephalopathy and has anemia Septic encephalopathy: blood culture are positive for gram negative rods Low back pain and ?mild compression fracture on L1 (per CT lumbar) Acute on chronic Anemia Acute on chronic kidney insufficiency Positive occult blood History of cognitive impairment/dementia History of pulmonary embolism on Eliquis--but stopped in the hospital because of +ve FOBT History of hypothyroidism History of rheumatoid arthritis History of Depression Plan: * I consulted orthopedic team for the questionable compression fracture. * An EEG is not warranted at this time. Her condition is not a seizure and seems due to septic encephalopathy. * Because of the better possible radiographic picture of normal hydrocephalus I would recommend the patient to follow-up with a neurologist and neurosurgeon as an outpatient further workup if the patient and her family decides to pursue. * Infection disease specialist is on board. * Cardiology team is consulted * Nephrology team is consulted * We'll defer the rest of the medical management to the ICU/primary team. The condition is very guarded. The plan is discussed with the patient nurse. Jj Virk M.D. Neuro-hospitalist Time with Patient: Less than 30
[2021-07-11] MEDS ORDERED: VANCOMYCIN 1,500 MG in SODIUM CHLORIDE 0.9% 250 ML IVPB ONE (10:00)
[2021-07-11 10:18] VITALS: TEMP 97.7
[2021-07-11 10:53] LABS: Glucose,Whole Blood 169 mg/dL (75-99)
--- NOTE | 2021-07-11 11:44 | PN ---
PROGRESS NOTE Mrs. Mccann is a 76-year-old female who was transferred to [facility] because of progressive change in mental status and drop in the blood pressure. She was noted to be severely hypotensive, requiring fluid and vasopressors. She had worsening renal function. She remains confused, not able to follow commands, screaming on touching. She underwent an echocardiogram yesterday that revealed preserved ventricular size and systolic function with no significant valvular disease. She was evaluated by the nephrology service because of her acute renal injury. She had evidence of GI bleeding and she is receiving transfusions. She is in sinus mechanism. She continues to be on Ceftin, daptomycin, Solu-Cortef, insulin, vancomycin. PHYSICAL EXAMINATION: Blood pressure is running in the low 100s, high 90s. Heart rate in the 110s. Sinus tachycardia. LUNGS: Clear anteriorly. HEART: S1, S2 with a systolic murmur, ejection type, at the base and a holosystolic murmur at the apex. No diastolic murmur. ABDOMEN: Soft, nontender. EXTREMITIES: Trace edema. LAB DATA: BUN and creatinine of 0.33 and 2.26. Her hemoglobin is down to 7.3. She is heme- positive. IMPRESSION: 1. Evidence of shock, probably related to sepsis. Patient had a prior history of urinary tract infection in the past. 2. History of rheumatoid arthritis. 3. Acute renal injury on top of chronic kidney disease. 4. Prior history of pulmonary embolism. 5. Acute gastrointestinal bleeding. 6. Questionable history of congestive heart failure. Her systolic function is preserved. The elevation of her NT proBNP is nondiagnostic. 7. Prior anemia workup in the past did not reveal clear evidence of bleeding, according to the daughter. 8. Change in mental status. RECOMMENDATIONS: From the cardiac standpoint, will continue supportive. There is no evidence of active cardiac abnormality at this time. She is being transfused. I will wait to get some information from [facility] regarding her prior workup. Unfortunately the prognosis remains guarded. MMODL / IJN: [id number] /
[2021-07-11] MEDS ORDERED: HALOPERIDOL LACTATE 5 MG/ML 1 ML VIAL IVP PRN (12:10)
[2021-07-11 12:55] LABS: Anisocytosis Slight; Basophils # (A) 0.1 k/uL (0-0.2); Basophils % (A) 0 %; Eosinophils % (A) 0 %; HCT 24.1 % (34.0-46.0); HGB 7.6 gm/dL (11.4-16.0); Hypochromasia Moderate; Lymphocytes # (A) 2.1 k/uL (1.0-4.8); Lymphocytes % (A) 6 %; MCH 28.1 pg (25.0-35.0); MCHC 31.4 g/dL (31.0-37.0); MCV 89.3 fL (80.0-100.0); Mean Platelet Volume 12.5; Monocytes # (A) 1.2 k/uL (0-1.0); Monocytes % (A) 3 %; Neutrophils # (A) 32.9 k/uL (1.3-7.7); Neutrophils % (A) 89 %; Poikilocytosis Slight; RBC 2.69 m/uL (3.80-5.40); RDW 18.2 % (11.5-15.5)
[2021-07-11 13:02] LABS: WBC 36.9 k/uL (3.8-10.6)
[2021-07-11] MEDS ORDERED: CALCIUM GLUCONATE IV SCH ×6 (14:00)
[2021-07-11] MEDS ORDERED: [UNRECOGNIZED DRUG - OTHER] IV SCH ×6 (14:00)
[2021-07-11] MEDS ORDERED: SODIUM ACETATE IV SCH ×6 (14:00)
[2021-07-11] MEDS ORDERED: MAGNESIUM SULFATE IV SCH ×6 (14:00)
--- NOTE | 2021-07-11 14:21 | P.PN ---
Subjective Progress Note Date: 07/11/21 Principal diagnosis: Acute sepsis and septic shock. Anemia This is a 76-year-old female with history of multiple medical problems including rheumatoid arthritis, history of pulmonary embolism, hypothyroidism, depression, chronic kidney disease, over the last 6 months, patient has been in many hospital including [facility], and she has also been at [facility] on many different occasions for recurrent urinary tract infections, failure to thrive, poor nutritional status, and the patient was recently discharged from [facility] to a rehab facility, later on she was transferred home. At home the patient has been receiving TPN via a central line in the left s ubclavian area, and the line has been present for the last 4 months according to the daughter. Patient has been receiving Procrit for anemia and she is also on Eliquis 4 history of pulmonary embolism. According to the daughter, the patient had history of rheumatoid arthritis and she developed methotrexate induced lung injury or possibly side effects related to methotrexate. Patient was at [facility] multiple times, and she has been treated for multiple issues including recurrent infections. Yesterday, the patient went to [facility], and she was seen for mostly generalized weakness, altered mental status, fevers, and she was supposedly diagnosed as having urinary tract infection, and possible sepsis with septic shock. Received fluid boluses at [facility], and she was placed on norepinephrine via her left subclavian central line, apparently [facility] the right to transfer the patient to a tertiary care center, they even tried [facility] again however the patient could not be transferred anywhere else except [facility] because of bed availability. Patient was seen in the ER yesterday, she was hypotensive and she was placed on norepinephrine. She was noted to have significant leukocytosis with WBC count of 33.3, hemoglobin 7.6, lactic acidosis with lactic acid of 2.3, apparently was around 5 at [facility]. Her BUN was 133 creatinine 2.24. BNP level 7930, serum cortisol of 24. ABG on BiPAP showed a pO2 of 76, pCO2 of 47 pH of 7.42. Home medications on this patient include Zofran, Synthroid, Cymbalta, omeprazole, allopurinol, Aldactone, Bumex, Eliquis. Apparently the patient had history of congestive heart failure, and supposedly the ER physician at [facility] was concerned after fluid boluses that the main the patient may have developed some component of pulmonary edema. The patient herself is a very poor historian, after reevaluating the patient, I recommended empiric antibiotics in the form of Unasyn, vancomycin, I have ordered blood cultures and urine cultures, and I have also recommended nephrology as well as infectious disease consultation. Serum cortisol level was ordered, and patient was started on hydrocortisone 100 mg IV push every 8 hours. Increase her IV fluids, and we'll arrange for an echocardiogram to assess her LV function. CT of the brain at [facility] was nondiagnostic Patient was reevaluated today on 07/11/21, remains in the ICU, continues to moan and groan. Patient is on 5 L nasal cannula, and her O2 saturation is in the low 90s. Patient is having intermittent episodes of black colored stool and maroon colored stools consistent with GI bleeding. Patient did receive a unit of packed RBCs, and she may need another unit of packed RBCs since her GI bleeding seems to be getting worse. I did consult gastroenterology, and if not available, we'll consulted general surgery to evaluate for possible GI evaluation/EGD/colonoscopy. In the meantime the patient had positive blood c ultures positive for Klebsiella oxytoca and for staph aureus/MRSA. Patient was seen by infectious disease, and she is now on daptomycin and on ceftriaxone. Patient is also on TPN, she is on Haldol, Solu-Cortef and I will cut down the dose to 50 mg IV push every 12 hours. A armendariz is also receiving Protonix for GI prophylaxis. Labs this morning showed a WBC count of 38.1, hemoglobin 7.6, platelets are 57,000 from 100,000 on admission. Patient is not receiving any heparin. Her BUN today is 133 creatinine is 2.26. Bicarb is 20. Liver enzymes are slightly elevated. Patient had been seen by different consultants including infectious disease, nephrology, neurology, and she is to be seen by gastroenterology or general surgery regarding his GI bleeding. Patient clearly has acute kidney injury possibly secondary to sepsis, and she does have history of chronic kidney disease stage III. Her mentation is most likely secondary to acute toxic encephalopathy/metabolic encephalopathy. 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 Chest x-ray today is showing more interstitial edema in the lungs bilaterally, it is difficult to tell whether this is pneumonia or pulmonary edema. ProBNP level and pro-calcitonin level are pending. Obviously at this point I wouldn't recommend diuresis, but I would recommend cutting down on IV fluids, and she is already on antibiotics. Objective - Vital Signs Vital signs: Vital Signs Temp 97.7 F 07/11/21 10:48 Pulse 108 H 07/11/21 13:00 Resp 20 07/11/21 13:00 BP 105/45 07/11/21 13:00 Pulse Ox 90 L 07/11/21 13:00 Intake & Output 07/10/21 07/11/21 07/11/21 18:59 06:59 18:59 Intake Total 2953 5673.430 9777.634 Output Total 570 590 360 Balance 2383 1035.000 844.634 Weight 92.6 kg 90.7 kg Intake: IV 2953 1375 750 Ampicillin-Sulbactam 3 gm 100 In Sodium Chloride 0.9% 100 ml @ 200 mls/hr IVPB Q12H QUIN Rx#:[id number] Fat Emulsion 20% 250 ml 63 In Empty Bag 1 bag @ 21 mls/hr IV MoWeFr QUIN Rx#: [id number] LR @ 10 20 Lactated Ringers 1,000 ml 125 @ 125 mls/hr IV .Q8H QUIN Rx#:[id number] Mvi, Adult No.4 with Vit 90 150 K 10 ml Trace (Conc-1Ml/ Dose) 1 ml In Amino Acid 5%-D15w+Lytes*E* 1,000 ml @ 30 mls/hr IV .Q24H ONE Rx#:[id number] Potassium Chloride 20 meq 200 In Water For Injection 1 100ml.bag @ 50 mls/hr IVPB Q2H QUIN Rx#: [id number] Sodium Acetate 40 meq 80 Magnesium Sulfate gm 0.5 gm Calcium Gluconate 1 gm In Amino Acid 5%-D15w 1, 000 ml @ 80 mls/hr IV .BY DURATION QUIN Rx#: [id number] Sodium Chloride 0.9% 1, 1250 1250 375 000 ml @ 125 mls/hr IV . Q8H QUIN Rx#:[id number] Sodium Chloride 0.9% 1, 1000 000 ml @ 999 mls/hr IV . Q1H1M ONE Rx#:[id number] Vancomycin 1,500 mg In 250 125 Sodium Chloride 0.9% 250 ml @ 125 mls/hr IVPB ONCE ONE Rx#:[id number] Intake, IV Titration 250.000 144.634 Amount Norepinephrine 32 mg In 250.000 144.634 Sodium Chloride 0.9% 218 ml @ 0.05 MCG/KG/MIN 3. 984 mls/hr IV .Q24H [facility] Rx#:[id number] Blood Product 310 Rc As-1 Unit 310 [id number] Output: Urine 570 590 360 Other: Voiding Method Indwelling Catheter Indwelling Catheter Indwelling Catheter # Bowel Movements 1 1 - Exam Physical Exam revealed a 76-year-old female, confused, on 5 L nasal cannula, moaning and groaning, follows very simple instructions. Head: Atraumatic, normocephalic. HEENT:[Neck is supple.] [No neck masses.] [No thyromegaly.] [ Positive JVD.] Chest: [Symmetrical chest expansion, minimal crackles at the bases no rhonchi no wheezes. Cardiac Exam: [Normal S1 and S2, no S3 gallop, 2/6 systolic murmur thought the precordium. Abdomen: [Obese, Soft, nontender, no megaly, no rebound, no guarding, normal bowel sounds.] Extremities: [No clubbing bipedal edema, no cyanosis.] Good pulses bilaterally. Neurological Exam: Moaning and groaning, follows simple instructions, obviously confused. Psychiatric: Depressed mood, blunt affect, poor mental status, confused. Could not obtain much history from the patient herself. - Labs CBC & Chem 7: 07/11/21 12:16 07/11/21 04:38 Labs: Abnormal Lab Results - Last 24 Hours (Table) 07/10/21 07/10/21 07/10/21 Range/Units 06:00 17:31 18:02 WBC (3.8-10.6) k/uL RBC (3.80-5.40) m/uL Hgb (11.4-16.0) gm/dL Hct (34.0-46.0) % RDW (11.5-15.5) % Plt Count (150-450) k/uL Neutrophils # (1.3-7.7) k/uL PT (9.0-12.0) sec INR (<1.2) APTT (22.0-30.0) sec Sodium (137-145) mmol/L Carbon Dioxide (22-30) mmol/L BUN (7-17) mg/dL Creatinine (0.52-1.04) mg/dL Glucose (74-99) mg/dL POC Glucose (mg/dL) 106 H (75-99) mg/dL Ionized Calcium Agustina (4.5-5.3) mg/dL Phosphorus (2.5-4.5) mg/dL Total Bilirubin (0.2-1.3) mg/dL AST (14-36) U/L Alkaline Phosphatase (38-126) U/L Total Protein (6.3-8.2) g/dL Albumin (3.5-5.0) g/dL Urine Appearance Cloudy H (Clear) Urine Protein Trace H (Negative) Urine Blood Trace H (Negative) Ur Leukocyte Esterase Moderate H (Negative) Urine WBC 20 H (0-5) /hpf Urine Mucus Rare H (None) /hpf Stool Occult Blood (Negative) Crossmatch See Detail 07/10/21 07/11/21 07/11/21 Range/Units 23:06 04:38 04:38 WBC 38.1 H (3.8-10.6) k/uL RBC 2.51 L (3.80-5.40) m/uL Hgb 7.3 L (11.4-16.0) gm/dL Hct 21.7 L (34.0-46.0) % RDW 19.7 H (11.5-15.5) % Plt Count 100 L D (150-450) k/uL Neutrophils # 34.7 H (1.3-7.7) k/uL PT (9.0-12.0) sec INR (<1.2) APTT (22.0-30.0) sec Sodium 135 L (137-145) mmol/L Carbon Dioxide 20 L (22-30) mmol/L BUN 133 H* (7-17) mg/dL Creatinine 2.26 H (0.52-1.04) mg/dL Glucose 156 H (74-99) mg/dL POC Glucose (mg/dL) 154 H (75-99) mg/dL Ionized Calcium Agustina 4.4 L (4.5-5.3) mg/dL Phosphorus 4.9 H (2.5-4.5) mg/dL Total Bilirubin 6.1 H (0.2-1.3) mg/dL AST 50 H (14-36) U/L Alkaline Phosphatase 240 H (38-126) U/L Total Protein 5.0 L (6.3-8.2) g/dL Albumin 2.1 L (3.5-5.0) g/dL Urine Appearance (Clear) Urine Protein (Negative) Urine Blood (Negative) Ur Leukocyte Esterase (Negative) Urine WBC (0-5) /hpf Urine Mucus (None) /hpf Stool Occult Blood (Negative) Crossmatch 07/11/21 07/11/21 07/11/21 Range/Units 04:38 04:38 05:41 WBC (3.8-10.6) k/uL RBC (3.80-5.40) m/uL Hgb (11.4-16.0) gm/dL Hct (34.0-46.0) % RDW (11.5-15.5) % Plt Count (150-450) k/uL Neutrophils # (1.3-7.7) k/uL PT 16.3 H (9.0-12.0) sec INR 1.6 H (<1.2) APTT 39.1 H (22.0-30.0) sec Sodium (137-145) mmol/L Carbon Dioxide (22-30) mmol/L BUN (7-17) mg/dL Creatinine (0.52-1.04) mg/dL Glucose (74-99) mg/dL POC Glucose (mg/dL) 175 H (75-99) mg/dL Ionized Calcium Agustina (4.5-5.3) mg/dL Phosphorus (2.5-4.5) mg/dL Total Bilirubin (0.2-1.3) mg/dL AST (14-36) U/L Alkaline Phosphatase (38-126) U/L Total Protein (6.3-8.2) g/dL Albumin (3.5-5.0) g/dL Urine Appearance (Clear) Urine Protein (Negative) Urine Blood (Negative) Ur Leukocyte Esterase (Negative) Urine WBC (0-5) /hpf Urine Mucus (None) /hpf Stool Occult Blood (Negative) Crossmatch 07/11/21 07/11/21 07/11/21 Range/Units 05:45 10:51 12:16 WBC (3.8-10.6) k/uL RBC 2.69 L (3.80-5.40) m/uL Hgb 7.6 L (11.4-16.0) gm/dL Hct 24.1 L (34.0-46.0) % RDW 18.2 H (11.5-15.5) % Plt Count (150-450) k/uL Neutrophils # (1.3-7.7) k/uL PT (9.0-12.0) sec INR (<1.2) APTT (22.0-30.0) sec Sodium (137-145) mmol/L Carbon Dioxide (22-30) mmol/L BUN (7-17) mg/dL Creatinine (0.52-1.04) mg/dL Glucose (74-99) mg/dL POC Glucose (mg/dL) 169 H (75-99) mg/dL Ionized Calcium Agustina (4.5-5.3) mg/dL Phosphorus (2.5-4.5) mg/dL Total Bilirubin (0.2-1.3) mg/dL AST (14-36) U/L Alkaline Phosphatase (38-126) U/L Total Protein (6.3-8.2) g/dL Albumin (3.5-5.0) g/dL Urine Appearance (Clear) Urine Protein (Negative) Urine Blood (Negative) Ur Leukocyte Esterase (Negative) Urine WBC (0-5) /hpf Urine Mucus (None) /hpf Stool Occult Blood Positive H (Negative) Crossmatch Microbiology - Last 24 Hours (Table) 07/10/21 09:36 Blood Culture - Final Blood 07/10/21 09:36 Blood Culture Gram Stain - Preliminary Blood Blood Culture - Preliminary Klebsiella oxytoca Staphylococcus aureus 07/10/21 18:02 Urine Culture - Preliminary Urine,Voided Assessment and Plan Assessment: Impression: Septic shock, and bacteremia with Klebsiella oxytoca and MRSA. Acute on chronic kidney disease stage IIIa. History of rheumatoid arthritis History of methotrexate toxicity Failure to thrive. Maintained on TPN. History of pulmonary embolism on Eliquis. Presently on hold. Because of her GI bleeding. History of congestive heart failure maintained on diuretics at home including Bumex and Aldactone. Patient may be developing some component of acute congestive heart failure, secondary to chronic diastolic dysfunction History of gout. Hypothyroidism. History of depression. History of bowel resection. Chronic anemia maintained on Procrit. Acute GI bleeding, will consult gastroenterology and/or surgery to see for GI bleeding. In the meantime transfuse patient accordingly maintain hemoglobin just above 7 if possible. Recommendation: Continue to monitor in the ICU. Continue norepinephrine. Titrate accordingly. Transfuse as needed.. Titrate oxygen accordingly. Hold Eliquis. Continue antibiotics including daptomycin and Rocephin for positive blood cultures. Continue to follow with other consultants. Continue TPN. Discussed her condition again today with her daughter at bedside, explained to her that her mom is critically ill, she may even require intubation mechanical ventilation, but not at this point yet. The daughter will discuss it with her other family members to decide on CODE STATUS, and that is yet to be decided upon. Patient remains critically ill, critical care time is over 30 minutes. Time with Patient: Greater than 30
[2021-07-11 14:37] LABS: Platelet Count 75 k/uL (150-450); Toxic Granulation Present
--- NOTE | 2021-07-11 14:55 | P.PN ---
Progress Note - Text Progress Note Date: 07/11/21 Chief Complaint: Weakness fever This is a 76-year-old patient who follows with Dr. Escobar. Since September of this year patient had about 5 admissions to [facility] in [place], any new was to [place].. Patient's and daughter is at the bedside. Patient was just discharged from the rehab about 10 days ago. Did not receive the patient has issues with her kidneys. Has low blood pressure. Also runs low white count and low hemoglobin. Patient also supposed to get Procrit. Patient's had repeated UTIs. Patient now presents with having fever. Decreased appetite tired rundown. Was able to lose all walker recently. At home patient had been receiving TPN via central line. And has had this for close to 4 months. She is also on eliquis for pulmonary embolism. Patient also had developed methotrexate-induced lung injury. She was admonished hospital. The patient was transferred here. Or possible UTI sepsis septic shock. She received fluid boluses. Was placed on levo fed. Patient could not be transferred to [facility] as they had no beds. She was noted to be hypotensive in the ER but the positive lactic acid. Patient is on a BiPAP this morning. Daughter is available to give much history. Consultations including infectious disease, nephrology, chief engineering division on the case. Also according to patient's had removal of about a foot of small interesting many years ago and has had nutritional problems for a long time Admitted with septic slight heart: Shock possibly related to UTI, acute kidney injury possibly ATN/prerenal, acute hypoxic respiratory failure. Admitted to the ICU. Put on IV levo fed, BiPAP, IV fluids. IV cefepime.. IV daptomycin. Encephalopathic. 07/11/2021: Patient is at about 3-4 maroon bowel movements. Confused. Calling out. Remains on levo fed drip. 5 L of nasal cannula. Did get 1 unit of blood. No GI service available. Surgery been consulted. Patient's daughter the bedside. Care was discussed. Review of systems: Cannot be obtained as patient is encephalopathic Past medical history to include: Recurrent UTI, rheumatoid arthritis, hypothyroid, hypertension, anemia, gait dysfunction using a walker, rheumatoid arthritis, side effects of methotrexate. He will of partial small bowel/interstitial bypass Social history: . No smoking or alcohol Family history: Cancer Physical examination: VITAL SIGNS: 97.7, 101, 18, 111/46, 90% on 5 L GENERAL: Confused, lethargic, calling out EYES: Pupils equal. Conjunctiva normal. HEENT: External appearance of nose and ears normal, oral cavity dry. NECK: JVD unable to assess; masses not palpable. HEART: First and second heart sounds are normal; no edema. LUNGS: Respiratory rate increased; decreased breath sounds. ABDOMEN: Soft, nontender, liver spleen not palpable, no masses palpable. PSYCH: Lethargic, unable to assess. NEUROLOGICAL: Cranial nerves grossly intact; no facial asymmetry, moving all 4 limbs ck INVESTIGATIONS, reviewed in the clinical context: July 11: 36.9 hemoglobin 7.[address] platelets [address]: Mild compression fracture of L1. DJD changes. Computed tomography scan brain: Cerebral atrophy. Hydrocephalus. White count 33.3 hemoglobin 7.6 platelets 57 sodium 1:30 potassium 3.4 BUN 133 creatinine 2.24 potassium 7.7 phosphorus 2.1 AST 41 ALT 17 proBNP 7930 cortisol 24 UA positive for new questions, WBC ABG: PH 7.4 pCO2 47 pO2 76 Chest x-ray film personally reviewed by me-portable/poor inspiration/venous prominence/atelectasis Telemetry strips personally reviewed by me: Sinus tachycardia Assessment and plan: -Septic/hypovolemic shock possibly related to UTI could be catheter related IV fluids, levo fed -Acute GI bleed. Patient had 3-4 maroon bowel movements. Surgery on the case. -Acute kidney injury, prerenal component. Possibly ATN from hypotension Follow eyes and nose. Nephrology consult. -Chronic kidney disease, baseline creatinine unknown Follow renal function. Consult nephrology. -Chronic medical debility, recurrent hospitalizations -Gait dysfunction, using a walker at baseline -Chronic pulmonary embolism On eliquis -Hyperuricemia On allopurinol -Chronic hypotension On midodrine. Continue Levothroid -Hypothyroidism Synthroid 200 g daily -Anemia of chronic kidney disease and likely other multifactorial Has been on Procrit -Acute blood loss anemia from GI bleed 1 unit of blood given. -Acute hypoxic respiratory failure, from possibly pulmonary edema: Slow to respond 5 L of nasal cannula -Acute UTI with cystitis, recurrent IV ceftriaxone -Chronic malnutrition On TPN and lipids. -Possible acute L1 compression fracture. [facility] ICU. IV levo fed. 5 L nasal cannula. TPN, lipids. IV ceftriaxone. IV daptomycin. Follow I's and os. Prognosis guarded. Discussed with daughter the bedside. Receive 1 unit of blood. Katrina pad ordered for L1 compression fracture. Advanced care planning: This was discussed with the patient's daughter the bedside. Patient's other daughter Asia lives in [place] and is pretty much more involved in patient's c are. This daughter is concerned overall about all of [id number] and the pain and discomfort patient is going through. Having had several admissions in the last few months.. Several aspects of the case was discussed. Option of DO NOT RESUSCITATE was discussed. She'll discuss this further with her sister. And her father. At the present time, continue current treatment plan. Patient to continue to remain full code. Time spent about 20 minutes.
--- NOTE | 2021-07-11 16:23 | P.GSCN ---
History of Present Illness Consult date: 07/11/21 History of present illness: CHIEF COMPLAINT: Hematochezia HISTORY OF PRESENT ILLNESS: The patient is a 76 year old female who presented to the emergency room yesterday with sepsis, WBC over 33,000. She has urinary tract infection. She presented with fevers over 104.0 Fahrenheit. She was placed on BiPAP. Most history is obtained per medical records as patient has delirium. Since admission, she is in the ICU with acute renal failure, delirium, and anemia, hemoglobin less than 8.0. She had occult blood test performed with presence of blood in stools. General surgery is consulted for gastrointestinal bleeding. PAST MEDICAL HISTORY: See list and reviewed PAST SURGICAL HISTORY: See list and reviewed MEDICATIONS: See list and reviewed ALLERGIES: See list and reviewed SOCIAL HISTORY: See list and reviewed FAMILY HISTORY: See list and reviewed REVIEW OF ORGAN SYSTEMS: CONSTITUTIONAL: Had fevers and chills. EYES: Has cataracts. HEENT: No difficulties with hearing. No nosebleeds. RESPIRATORY: On Bipap. CARDIOVASCULAR: Has congestive heart failure. Has hypertensive heart disease. GASTROINTESTINAL: Has change in bowel habits and gas bloat. Has chronic diarrhea. Has gastroesophageal reflux disease. Has iron deficiency anemia. History of bowel resection. GENITOURINARY: Has urinary tract infection. NEUROLOGICAL: Has dementia. MUSCULOSKELETAL: Has back pain, stiffness or joint arthritis. Has gout. Has rheumatoid arthritis and lupus. SKIN: No current skin cancer. No rash. PSYCHIATRIC: Has depression. ENDOCRINE: Has hypothyroidism. Denies any blood sugar glucose intolerance. HEME/LYMPHATIC: On anticoagulant. ALLERGY/IMMUNOLOGY: No immunoglobulin therapy. No immune deficiencies. PHYSICAL EXAM: VITALS: Reviewed CONSTITUTIONAL: Well developed and in no acute distress. EYES: Conjuctivae without sclera icterus. Extraocular movements grossly intact. HEAD, EARS, NOSE, THROAT: Moist buccal mucosa. Head is atraumatic, normocep halic. Hears conversational speech. NECK: No gross thyroidomegaly. RESPIRATORY: Mild labored respirations and equal bilateral excursions. CARDIOVASCULAR: Tachycardic ABDOMEN: No peritonitis LYMPH: No visible neck lymphadenopathy. MUSCULOSKELETAL: No clubbing or cyanosis. SKIN: Warm and well perfused with good skin turgor. NEUROLOGIC: Cranial nerves II through XII grossly intact. No focal or lateralizing signs. PSYCH: Delirium. CLINCAL LABS: Reviewed. WBC 33,600 on admission over 38,000 with leukocytosis. Hemoglobin 7.6, low for anemia. Platelets low 57,000 on admission. Creatinine up to 2.26. IMAGING: Independently reviewed CT of the brain demonstrates no hemorrhagic bleeding. This is my independent interpretation. RADIOLOGY: Report reviewed of the CT show atrophy and hydrocephalus. ASSESSMENT: 1. Anemia with GI bleed 2. Sepsis with delirium. 3. Urinary tract infection. PLAN: 1. Patient presents with severe sepsis where surgical intervention is elevated risk. 2. Per discussion with nursing, patient is being made comfort care. 3. Continue critical care management. Thank you for this kind consultation. Past Medical History Past Medical History: Rheumatoid Arthritis (RA), Thyroid Disorder Additional Past Medical History / Comment(s): lupus, on RX for UTI History of Any Multi-Drug Resistant Organisms: None Reported Past Surgical History: Appendectomy, Bowel Resection, Hysterectomy, Orthopedic Surgery Additional Past Surgical History / Comment(s): removal of 10-12" small intestine " to loose wt", arthroscopy rt shoulder, chioma cataracts Past Anesthesia/Blood Transfusion Reactions: No Reported Reaction Past Psychological History: No Psychological Hx Reported Smoking Status: Unknown if ever smoked Past Alcohol Use History: None Reported Past Drug Use History: None Reported - Past Family History Sister(s) Family Medical History: Cancer Medications and Allergies Home Medications Medication Instructions Recorded Confirmed Type FLUoxetine HCL [PROzac] 60 mg PO DAILY 03/10/20 07/10/21 History Levothyroxine Sodium [Synthroid] 200 mcg PO DAILY 03/10/20 07/10/21 History Multivitamins, Thera [Multivitamin 1 tab PO DAILY 03/10/20 07/10/21 History (formulary)] Allopurinol [Zyloprim] 100 mg PO DAILY 07/10/21 07/10/21 History Apixaban [Eliquis] 5 mg PO BID 07/10/21 07/10/21 History Bumetanide [Bumex] 1 mg PO BID 07/10/21 07/10/21 History Cholecalciferol [Vitamin D3 (25 25 mcg PO DAILY 07/10/21 07/10/21 History Mcg = 1000 Iu)] Diphenoxylate HCl/Atropine 1 tab PO TID PRN 07/10/21 07/10/21 History [Lomotil 2.5-0.025 mg Tablet] Famotidine [Pepcid] 20 mg PO HS 07/10/21 07/10/21 History Ferrous Sulfate [Feosol] 325 mg PO DAILY 07/10/21 07/10/21 History HYDROcodone/APAP 5-325MG [[place] 1 tab PO BID PRN 07/10/21 07/10/21 History 5-325] Loperamide [Imodium] 2 mg PO BID PRN 07/10/21 07/10/21 History Magnesium Oxide 400 mg PO BID 07/10/21 07/10/21 History Melatonin 3 mg PO HS PRN 07/10/21 07/10/21 History Midodrine HCl [ProAmatine] 10 mg PO AC-TID 07/10/21 07/10/21 History Omeprazole 20 mg PO AC-BRKFST 07/10/21 07/10/21 History Ondansetron [Zofran] 4 mg PO Q6H PRN 07/10/21 07/10/21 History Spironolactone [Aldactone] 25 mg PO DAILY 07/10/21 07/10/21 History Sulfamethox-Tmp 800-160Mg [Bactrim 1 tab PO BID 07/10/21 07/10/21 History DS 800-160 mg] Thiamine [Vitamin B-1] 100 mg PO DAILY 07/10/21 07/10/21 History Zinc Sulfate [Orazinc] 220 mg PO DAILY 07/10/21 07/10/21 History Allergies Allergy/AdvReac Type Severity Reaction Status Date / Time Penicillins Allergy Unknown Verified 07/10/21 17:58 Surgical - Exam Vital Signs Temp Pulse Resp BP Pulse Ox 97.8 F 81 18 75/41 95 07/10/21 03:34 07/10/21 03:34 07/10/21 03:34 07/10/21 03:34 07/10/21 03:34 Results - Labs 07/11/21 12:16 07/11/21 04:38 Abnormal Lab Results - Last 24 Hours (Table) 07/10/21 07/10/21 07/10/21 Range/Units 06:00 17:31 18:02 WBC (3.8-10.6) k/uL RBC (3.80-5.40) m/uL Hgb (11.4-16.0) gm/dL Hct (34.0-46.0) % RDW (11.5-15.5) % Plt Count (150-450) k/uL Neutrophils # (1.3-7.7) k/uL Monocytes # (0-1.0) k/uL PT (9.0-12.0) sec INR (<1.2) APTT (22.0-30.0) sec Sodium (137-145) mmol/L Carbon Dioxide (22-30) mmol/L BUN (7-17) mg/dL Creatinine (0.52-1.04) mg/dL Glucose (74-99) mg/dL POC Glucose (mg/dL) 106 H (75-99) mg/dL Ionized Calcium Agustina (4.5-5.3) mg/dL Phosphorus (2.5-4.5) mg/dL Total Bilirubin (0.2-1.3) mg/dL AST (14-36) U/L Alkaline Phosphatase (38-126) U/L Total Protein (6.3-8.2) g/dL Albumin (3.5-5.0) g/dL Urine Appearance Cloudy H (Clear) Urine Protein Trace H (Negative) Urine Blood Trace H (Negative) Ur Leukocyte Esterase Moderate H (Negative) Urine WBC 20 H (0-5) /hpf Urine Mucus Rare H (None) /hpf Stool Occult Blood (Negative) Crossmatch See Detail 07/10/21 07/11/21 07/11/21 Range/Units 23:06 04:38 04:38 WBC 38.1 H (3.8-10.6) k/uL RBC 2.51 L (3.80-5.40) m/uL Hgb 7.3 L (11.4-16.0) gm/dL Hct 21.7 L (34.0-46.0) % RDW 19.7 H (11.5-15.5) % Plt Count 100 L D (150-450) k/uL Neutrophils # 34.7 H (1.3-7.7) k/uL Monocytes # (0-1.0) k/uL PT (9.0-12.0) sec INR (<1.2) APTT (22.0-30.0) sec Sodium 135 L (137-145) mmol/L Carbon Dioxide 20 L (22-30) mmol/L BUN 133 H* (7-17) mg/dL Creatinine 2.26 H (0.52-1.04) mg/dL Glucose 156 H (74-99) mg/dL POC Glucose (mg/dL) 154 H (75-99) mg/dL Ionized Calcium Agustina 4.4 L (4.5-5.3) mg/dL Phosphorus 4.9 H (2.5-4.5) mg/dL Total Bilirubin 6.1 H (0.2-1.3) mg/dL AST 50 H (14-36) U/L Alkaline Phosphatase 240 H (38-126) U/L Total Protein 5.0 L (6.3-8.2) g/dL Albumin 2.1 L (3.5-5.0) g/dL Urine Appearance (Clear) Urine Protein (Negative) Urine Blood (Negative) Ur Leukocyte Esterase (Negative) Urine WBC (0-5) /hpf Urine Mucus (None) /hpf Stool Occult Blood (Negative) Crossmatch 07/11/21 07/11/21 07/11/21 Range/Units 04:38 04:38 05:41 WBC (3.8-10.6) k/uL RBC (3.80-5.40) m/uL Hgb (11.4-16.0) gm/dL Hct (34.0-46.0) % RDW (11.5-15.5) % Plt Count (150-450) k/uL Neutrophils # (1.3-7.7) k/uL Monocytes # (0-1.0) k/uL PT 16.3 H (9.0-12.0) sec INR 1.6 H (<1.2) APTT 39.1 H (22.0-30.0) sec Sodium (137-145) mmol/L Carbon Dioxide (22-30) mmol/L BUN (7-17) mg/dL Creatinine (0.52-1.04) mg/dL Glucose (74-99) mg/dL POC Glucose (mg/dL) 175 H (75-99) mg/dL Ionized Calcium Agustina (4.5-5.3) mg/dL Phosphorus (2.5-4.5) mg/dL Total Bilirubin (0.2-1.3) mg/dL AST (14-36) U/L Alkaline Phosphatase (38-126) U/L Total Protein (6.3-8.2) g/dL Albumin (3.5-5.0) g/dL Urine Appearance (Clear) Urine Protein (Negative) Urine Blood (Negative) Ur Leukocyte Esterase (Negative) Urine WBC (0-5) /hpf Urine Mucus (None) /hpf Stool Occult Blood (Negative) Crossmatch 07/11/21 07/11/21 07/11/21 Range/Units 05:45 10:51 12:16 WBC 36.9 H (3.8-10.6) k/uL RBC 2.69 L (3.80-5.40) m/uL Hgb 7.6 L (11.4-16.0) gm/dL Hct 24.1 L (34.0-46.0) % RDW 18.2 H (11.5-15.5) % Plt Count 75 L (150-450) k/uL Neutrophils # 32.9 H (1.3-7.7) k/uL Monocytes # 1.2 H (0-1.0) k/uL PT (9.0-12.0) sec INR (<1.2) APTT (22.0-30.0) sec Sodium (137-145) mmol/L Carbon Dioxide (22-30) mmol/L BUN (7-17) mg/dL Creatinine (0.52-1.04) mg/dL Glucose (74-99) mg/dL POC Glucose (mg/dL) 169 H (75-99) mg/dL Ionized Calcium [place]ina (4.5-5.3) mg/dL Phosphorus (2.5-4.5) mg/dL Total Bilirubin (0.2-1.3) mg/dL AST (14-36) U/L Alkaline Phosphatase (38-126) U/L Total Protein (6.3-8.2) g/dL Albumin (3.5-5.0) g/dL Urine Appearance (Clear) Urine Protein (Negative) Urine Blood (Negative) Ur Leukocyte Esterase (Negative) Urine WBC (0-5) /hpf Urine Mucus (None) /hpf Stool Occult Blood Positive H (Negative) Crossmatch Microbiology - Last 24 Hours (Table) 07/10/21 09:36 Blood Culture - Final Blood 07/10/21 09:36 Blood Culture Gram Stain - Preliminary Blood Blood Culture - Preliminary Klebsiella oxytoca Staphylococcus aureus 07/10/21 18:02 Urine Culture - Preliminary Urine,Voided Diabetes panel 07/11/21 Range/Units 04:38 Sodium 135 L (137-145) mmol/L Potassium 4.8 (3.5-5.1) mmol/L Chloride 98 (98-107) mmol/L Carbon Dioxide 20 L (22-30) mmol/L BUN 133 H* (7-17) mg/dL Creatinine 2.26 H (0.52-1.04) mg/dL Glucose 156 H (74-99) mg/dL Calcium 8.4 (8.4-10.2) mg/dL AST 50 H (14-36) U/L ALT 20 (4-34) U/L Alkaline Phosphatase 240 H (38-126) U/L Total Protein 5.0 L (6.3-8.2) g/dL Albumin 2.1 L (3.5-5.0) g/dL Calcium panel 07/11/21 Range/Units 04:38 Calcium 8.4 (8.4-10.2) mg/dL Ionized Calcium [place] 4.4 L (4.5-5.3) mg/dL Phosphorus 4.9 H (2.5-4.5) mg/dL Albumin 2.1 L (3.5-5.0) g/dL Pituitary panel 07/11/21 Range/Units 04:38 Sodium 135 L (137-145) mmol/L Potassium 4.8 (3.5-5.1) mmol/L Chloride 98 (98-107) mmol/L Carbon Dioxide 20 L (22-30) mmol/L BUN 133 H* (7-17) mg/dL Creatinine 2.26 H (0.52-1.04) mg/dL Glucose 156 H (74-99) mg/dL Calcium 8.4 (8.4-10.2) mg/dL Adrenal panel 07/11/21 Range/Units 04:38 Sodium 135 L (137-145) mmol/L Potassium 4.8 (3.5-5.1) mmol/L Chloride 98 (98-107) mmol/L Carbon Dioxide 20 L (22-30) mmol/L BUN 133 H* (7-17) mg/dL Creatinine 2.26 H (0.52-1.04) mg/dL Glucose 156 H (74-99) mg/dL Calcium 8.4 (8.4-10.2) mg/dL Total Bilirubin 6.1 H (0.2-1.3) mg/dL AST 50 H (14-36) U/L ALT 20 (4-34) U/L Alkaline Phosphatase 240 H (38-126) U/L Total Protein 5.0 L (6.3-8.2) g/dL Albumin 2.1 L (3.5-5.0) g/dL Assessment and Plan (1) GIB (gastrointestinal bleeding) Current Visit: Yes Status: Acute Code(s): K92.2 - GASTROINTESTINAL HEMORRHAGE, UNSPECIFIED SNOMED Code(s): 49518235 (2) Anemia Current Visit: Yes Status: Acute Code(s): D64.9 - ANEMIA, UNSPECIFIED SNOMED Code(s): 300012265 (3) Altered mental status Current Visit: Yes Status: Acute Code(s): R41.82 - ALTERED MENTAL STATUS, UNSPECIFIED SNOMED Code(s): 406520190 (4) CHF (congestive heart failure) Current Visit: Yes Status: Acute Code(s): I50.9 - HEART FAILURE, UNSPECIFIED SNOMED Code(s): 73584098 (5) Delirium due to general medical condition Current Visit: Yes Status: Acute Code(s): F05 - DELIRIUM DUE TO KNOWN PHYSIOLOGICAL CONDITION SNOMED Code(s): 0171382 (6) Fever Current Visit: Yes Status: Acute Code(s): R50.9 - FEVER, UNSPECIFIED SNOMED Code(s): 415096431 (7) Sepsis Current Visit: Yes Status: Acute Code(s): A41.9 - SEPSIS, UNSPECIFIED ORGANISM SNOMED Code(s): 16349463 (8) UTI (urinary tract infection) Current Visit: Yes Status: Acute Code(s): N39.0 - URINARY TRACT INFECTION, SITE NOT SPECIFIED SNOMED Code(s): 90986554
--- NOTE | 2021-07-11 16:44 | PN ---
PROGRESS NOTE DATE OF SERVICE: 07/11/2021 REASON FOR FOLLOWUP: Sepsis and bacteremia. INTERVAL HISTORY: The patient is afebrile. The patient is requiring pressors to maintain her blood pressure. The patient is lethargic. She received medication to calm her down this morning, including pain medication. No vomiting, diarrhea, or any other changes reported by the nursing staff. PHYSICAL EXAMINATION: Blood pressure 105/48, pulse 107, temperature 97.7. She is 91% on 5 L nasal cannula. General description is an elderly female lying in bed in no distress. RESPIRATORY SYSTEM: Unlabored breathing. Rest of exam was deferred. LABS: Hemoglobin 7.6, white count 6.9, creatinine 2.26. Culture with MRSA and Klebsiella. DIAGNOSTIC IMPRESSION AND PLAN: Patient admitted to hospital with sepsis secondary to the central line the patient has had for a couple of months now with blood culture showing Klebsiella and MRSA. Patient is covered with daptomycin and Rocephin. Detailed discussion with the family, who are leaning more towards hospice, comfort care after her brother arrives. In that case, will hold on order for removal of the line or any further cultures. They had multiple questions. Those were answered in layman's terms. MMODL / IJN: [id number] /
[2021-07-11] MEDS ORDERED: HYDROmorphone 1 MG/ML 1 ML SYRINGE IVP PRN (17:31)
[2021-07-11] MEDS ORDERED: SCOPOLAMINE 1.5MG/72HR PATCH TRANSDERM SCH (17:45)
[2021-07-11] MEDS: MORPHINE SULFATE (100 MG/2 ML) 100 MG in SODIUM CHLORIDE 0.9% 100 ML IV SCH (18:04)
[2021-07-11 18:23] VITALS: BP 78/64
[2021-07-11] MEDS: MORPHINE SULFATE 4 MG/ML SYRINGE IV PRN ×2 (18:37→19:58)
[2021-07-11 19:07] VITALS: PULSE 97
[2021-07-11] MEDS ORDERED: HYDROCORTISONE SUCCINATE 100 MG/2 ML VIAL IV SCH (21:00)
[2021-07-11] MEDS ORDERED: LORazepam 2 MG/ML INJ IV PRN (21:23)
[2021-07-12] MEDS: MORPHINE SULFATE (100 MG/2 ML) 100 MG in SODIUM CHLORIDE 0.9% 100 ML IV SCH ×3 (04:15)
[2021-07-12 09:05] VITALS: RESP 8
--- NOTE | 2021-07-12 09:39 | P.PN ---
Progress Note - Text Progress Note Date: 07/12/21 Patient is 76-year-old female who was admitted to [facility] on 07/10/2021 after being transferred from a tertiary care facility for further treatment. Patient is a very complicated detailed medical history and multiple medical comorbidities. She has had multiple inpatient hospital admissions since September 2020. Patient is being treated for multiple infections, a central line was placed and patient was receiving TPN while at home. Arriving to [facility], patient's labs revealed severe sepsis, she was admitted to the ICU for further workup. Our orthopedic team was consulted on 07/11/2021 with regards to findings on a lumbar computed tomography scan was concerned. L1 vertebral body compression fracture. I was able to evaluate the patient on 07/11/2021 in the ICU unit. My exam on 07/11/2021 was very limited, patient was very agitated and delirious. Nursing staff was assessing the patient and I was able to exam her briefly. Physical exam: There are no obvious open lesions or sores present throughout the cervical, thoracic or lumbar spine. There was some minor skin breakdown noted near the sacral region but no obvious open sores. Palpation of both midline and paraspinal region of the cervical, thoracic and lumbar spine demonstrated no obvious step-off. Again patient's agitated state was very difficult to determine if there was any severe localized areas of pain. Assessing range of motion of the bilateral upper and lower extremities was unachievable due to her current medical state. Imaging: Computed tomography scan of the lumbar spine was reviewed along with report. Images demonstrated mild compression fracture of the L1 vertebral body. Assessment: Sepsis with encephalopathy L1 vertebral compression fracture Multiple medical comorbidities Plan: I was able to discuss both physical exam findings and imaging studies might attending Dr. Lala. No emergent orthopedic surgical intervention was warranted. Plan was for reevaluation and discussion of treatment when patient's medical state improved. This was also discussed with nursing at bedside, they were advised to contact us with any acute changes or questions. Upon arrival to the hospital on 07/12/2021, I was able to review patient's chart which included other medical specialty progress note, there was discussion of the patient being placed on comfort care versus hospice on 07/11/2021. I then spoke with nursing staff and was notified that the patient did pass away.
--- NOTE | 2021-07-12 15:59 | P.DS ---
Providers Date of admission: 07/10/21 03:49 Expected date of discharge: 07/12/21 Attending physician: Ascencion Valdivia Primary care physician: [facility] Course: Chief Complaint: Weakness fever This is a 76-year-old patient who follows with Dr. Escobar. Since September of this year patient had about 5 admissions to [facility] in [place], any new was to [place].. Patient's and daughter is at the bedside. Patient was just discharged from the rehab about 10 days ago. Did not receive the patient has issues with her kidneys. Has low blood pressure. Also runs low white count and low hemoglobin. Patient also supposed to get Procrit. Patient's had repeated UTIs. Patient now presents with having fever. Decreased appetite tired rundown. Was able to lose all walker recently. At home patient had been receiving TPN via central line. And has had this for close to 4 months. She is also on eliquis for pulmonary embolism. Patient also had developed methotrexate-induced lung injury. She was admonished hospital. The patient was transferred here. Or possible UTI sepsis septic shock. She received fluid boluses. Was placed on levo fed. Patient could not be transferred to [facility] as they had no beds. She was noted to be hypotensive in the ER but the positive lactic acid. Patient is on a BiPAP this morning. Daughter is available to give much history. Consultations including infectious disease, nephrology, medicaid eligibility specialist on the case. Also according to patient's had removal of about a foot of small interesting many years ago and has had nutritional problems for a long time Admitted with septic slight heart: Shock possibly related to UTI, acute kidney injury possibly ATN/prerenal, acute hypoxic respiratory failure. Admitted to the ICU. Put on IV levo fed, BiPAP, IV fluids. IV cefepime.. IV daptomycin. Encephalopathic. 07/11/2021: Patient is at about 3-4 maroon bowel movements. Confused. Calling out. Remains on levo fed drip. 5 L of nasal cannula. Did get 1 unit of blood. No GI service available. Surgery been consulted. Patient's daughter the bedside. Care was discussed. Today: Family decided to make the patient comfort care. Patient succumbed underlying condition Consultation: Dr. Sanchez from general surgery Dr. Frank from ID Dr. Koch from critical cane After someone from cardiology Dr. Virk from neurology Nephrology Orthopedics Past medical history to include: Recurrent UTI, rheumatoid arthritis, hypothyroid, hypertension, anemia, gait dysfunction using a walker, rheumatoid arthritis, side effects of methotrexate. He will of partial small bowel/interstitial bypass Social history: . No smoking or alcohol Family history: Cancer INVESTIGATIONS, reviewed in the clinical context: July 11: BC 36.9 hemoglobin 7.6 platelets [address]: Mild compression fracture of L1. DJD changes. Computed tomography scan brain: Cerebral atrophy. Hydrocephalus. White count 33.3 hemoglobin 7.6 platelets 57 sodium 1:30 potassium 3.4 BUN 133 creatinine 2.24 potassium 7.7 phosphorus 2.1 AST 41 ALT 17 proBNP 7930 cortisol 24 UA positive for new questions, WBC ABG: PH 7.4 pCO2 47 pO2 76 Chest x-ray film personally reviewed by me-portable/poor inspiration/venous prominence/atelectasis Telemetry strips personally reviewed by me: Sinus tachycardia Cause of : Possibly Chronic pulmonary embolism Assessment and plan: -Septic/hypovolemic shock possibly related to UTI could be catheter related IV fluids, levo fed -Acute GI bleed. Patient had 3-4 maroon bowel movements. Surgery on the case. -Acute kidney injury, prerenal component. Possibly ATN from hypotension Follow eyes and nose. Nephrology consult. -Chronic kidney disease, baseline creatinine unknown Follow renal function. Consult nephrology. -Chronic medical debility, recurrent hospitalizations -Gait dysfunction, using a walker at baseline -Chronic pulmonary embolism On eliquis -Hyperuricemia On allopurinol -Chronic hypotension On midodrine. Continue Levothroid -Hypothyroidism Synthroid 200 g daily -Anemia of chronic kidney disease and likely other multifactorial Has been on Procrit -Acute blood loss anemia from GI bleed 1 unit of blood given. -Acute hypoxic respiratory failure, from possibly pulmonary edema: Slow to respond 5 L of nasal cannula -Acute UTI with cystitis, recurrent IV ceftriaxone -Chronic malnutrition On TPN and lipids. -Possible acute L1 compression fracture. Katrina pad ICU. IV levo fed. 5 L nasal cannula. TPN, lipids. IV ceftriaxone. IV daptomycin. Follow I's and os. Prognosis guarded. Discussed with daughter the bedside. Receive 1 unit of blood. Katrina pad ordered for L1 compression fracture. Advanced care planning: [July 12] This was discussed with the patient's daughter the bedside. Patient's other daughter Asia lives in [place] and is pretty much more involved in patient's care. This daughter is concerned overall about all of [id number] and the pain and discomfort patient is going through. Having had several admissions in the last few months.. Several aspects of the case was discussed. Option of DO NOT RESUSCITATE was discussed. She'll discuss this further with her sister. And her father. At the present time, continue current treatment plan. Patient to continue to remain full code. Time spent about 20 minutes. Disposition: Patient Plan - Discharge Summary Discharge Rx Participant: No New Discharge Prescriptions: Discontinued FLUoxetine HCL [PROzac] 60 mg PO DAILY Levothyroxine Sodium [Synthroid] 200 mcg PO DAILY Multivitamins, Thera [Multivitamin (formulary)] 1 tab PO DAILY Thiamine [Vitamin B-1] 100 mg PO DAILY Ondansetron [Zofran] 4 mg PO Q6H PRN PRN Reason: Nausea And Vomiting Ferrous Sulfate [Feosol] 325 mg PO DAILY Bumetanide [Bumex] 1 mg PO BID Midodrine HCl [ProAmatine] 10 mg PO AC-TID Melatonin 3 mg PO HS PRN PRN Reason: Insomnia Magnesium Oxide 400 mg PO BID Loperamide [Imodium] 2 mg PO BID PRN PRN Reason: Diarrhea Diphenoxylate HCl/Atropine [Lomotil 2.5-0.025 mg Tablet] 1 tab PO TID PRN PRN Reason: Diarrhea Zinc Sulfate [Orazinc] 220 mg PO DAILY Cholecalciferol [Vitamin D3 (25 Mcg = 1000 Iu)] 25 mcg PO DAILY Spironolactone [Aldactone] 25 mg PO DAILY Omeprazole 20 mg PO AC-BRKFST Allopurinol [Zyloprim] 100 mg PO DAILY Apixaban [Eliquis] 5 mg PO BID Famotidine [Pepcid] 20 mg PO HS HYDROcodone/APAP 5-325MG [[place] 5-325] 1 tab PO BID PRN PRN Reason: Pain Sulfamethox-Tmp 800-160Mg [Bactrim DS 800-160 mg] 1 tab PO BID Follow up Appointment(s)/Referral(s): Palmer Escobar MD [Primary Care Provider] - 1-2 days [facility], [NON-STAFF] - [facility], [REFERRING] - Discharge Disposition: - Preliminary Cause of Preliminary Cause of : Chronic pulmonary embolism
--- NOTE | 2021-07-16 10:48 | CDI ---
Documentation Clarification Form Date: 07/16/2021 09:34:36 AM From: Екатерина Solorio RN, CCDS Admit Date: 07/10/2021 03:49:00 AM Patient Name: Marya Mccann Visit Number: [id number] Discharge Date: 07/12/2021 11:15:00 AM ATTENTION: The Clinical Documentation Specialists (CDI) and [facility] Coding Staff appreciate your assistance in clarifying documentation. Please respond to the clarification below the line at the bottom and electronically sign. The CDI & [facility] Coding staff will review the response and follow-up if needed. Please note: Queries are made part of the Legal Health Record. If you have any questions, please contact the author of this message via ITS. Dr. Ascencion Valdivia Conflicting documentation has been found in the medical record. As attending physician, please provide clarification. 07/10/21 H/P, subsequent progress notes and discharge summary: Septic, hypovolemic shock possibly related to UTI could be catheter related. 07/11 ID: (consult and subsequent progress notes): admitted to hospital with sepsis secondary to the central line the patient has had for a couple of months now with blood culture showing KIebsiella and MRSA History/Risk Factors: Recurrent UTI's, Rheumatoid Arthritis, Lupus Clinical Indicators: 76-year-old female history of recurrent urinary tract infection also have a central line, Left subclavian double lumen and has been receiving TPN for three last 4 months present as transfer with shortness of breath, altered mental status, fever and elevated WBC. She presents with Adan catheter 07/10 from [place]. 07/10 Vital signs: 75/41 81 18 97.8 95 %BIPAP 07/10 Labs: WBC 33.3, HGB 7.6, HCT 24.3, BUIN 133, CR 2.24, Lactic acid 2.3 07/10 UA: Moderate Leukocyte Esterase 07/10 Urine culture: Final: No Growth after 18 hours 07/10 Blood Culture: Klebsiella oxytoca, Methicillin resist aureus 07/11 Blood Culture, Gram stain: Gram positive cocci, Blood culture Methicillin resist S. aureus Treatment: ICU Monitoring .9 IV Bolus 1,000 ML Levophed 32 MG IV per orders Daptomycin 500 MG IVPB Q 24 HRS 07/11 Rocephin 2 GM IVPB Q 24 HRS 07/11 Unasyn 3 GM IVPB (07/10) Vancomycin 1,500 MLS/HR Once PTD (07/10-07/11) Please clarify which diagnosis is most appropriate: [ ] Sepsis with Septic shock secondary to UTI, Adan catheter related, POA [ ] Sepsis with Septic shock secondary to Central line, POA [ ] Other (please specify) [ ] Unable to determine (Template Last Revised: November 2020) Sepsis with septic shock secondary to UTI Adan catheter related, and central line, both POA MTDD
--- NOTE | 2021-07-31 09:03 | CDI ---
Documentation Clarification Form Date: 07/31/21 From: Laureen Hermosillo Admit Date: 07/10/2021 03:49:00 AM Patient Name: Marya Mccann Visit Number: [id number] Discharge Date: 07/12/2021 11:15:00 AM ATTENTION: The Clinical Documentation Specialists (CDI) and [facility] Coding Staff appreciate your assistance in clarifying documentation. Please respond to the clarification below the line at the bottom and electronically sign. The CDI & [facility] Coding staff will review the response and follow-up if needed. Please note: Queries are made part of the Legal Health Record. If you have any questions, please contact the author of this message via ITS. Dr. Ascencion Valdivia, Your patient has the documented diagnosis of unspecified CHF in the ED Note, Dr Koch's consult, Dr Mittal's consult. Additional information regarding the acuity of CHF is requested. History/Risk Factors: Diastolic CHF, HTN & CKD Stage 3a Clinical Indicators: Per Dr Koch's 07/11 PN - Patient may be developing some component of acute congestive heart failure, secondary to chronic diastolic dysfunction. Apparently the patient had history of congestive heart failure, and supposedly the ER physician at [facility] was concerned after fluid boluses that the main the patient may have developed some component of pulmonary edema. History of congestive heart failure maintained on diuretics at home including Bumex and Aldactone. 07/11 - VS/Pulse OX: P 102, R 15, BP 105/58, O2 96 07/10 BNP: 7930 07/10 Echocardiogram Results: Overall left ventricular systolic function is normal with, an EF between 55 - 60 %. 07/11 Chest X Ray: Correlate for pneumonia or edema. 07/10 Dr Mittal's consult: The patient has no prior history of congestive heart failure and on examination did not appear to have significant lung congestion. Treatment: Monitor in ICU, continue Norepinephrine, titrate accordingly, transfuse as needed, continue TPN. No IV Lasix given In your professional opinion, can you please clarify the acuity of Diastolic CHF if known? [ ] Chronic Diastolic Heart Failure (preserved EF) [ ] Acute on Chronic Diastolic Heart Failure (preserved EF) [ ] Unable to determine Chronic congestive heart failure from diastolic dysfunction EF 55-60% MTDD
--- NOTE | 2021-07-31 09:15 | CDI ---
Documentation Clarification Form Date: 07/31/21 From: Laureen Hermosillo Admit Date: 07/10/2021 03:49:00 AM Patient Name: Marya Mccann Visit Number: [id number] Discharge Date: 07/12/2021 11:15:00 AM ATTENTION: The Clinical Documentation Specialists (CDI) and [facility] Coding Staff appreciate your assistance in clarifying documentation. Please respond to the clarification below the line at the bottom and electronically sign. The CDI & [facility] Coding staff will review the response and follow-up if needed. Please note: Queries are made part of the Legal Health Record. If you have any questions, please contact the author of this message via ITS. Dr. Ascencion Valdivai, Chronic malnutrition is documented in the H&P, 07/11 PN & discharge summary. Additional clarification regarding the severity of malnutrition is requested. History/Risk Factors: septic shock, catheter related UTI, central venous infection, ATN, acute respiratory failure w hypoxia, toxic encephalopathy/metabolic encephalopathy Clinical Indicators: chronic TPN and lipids because of bowel surgery for weight loss in remote past Current BMI: 25.8 RD Consult Assessment: Ensure Enlive, Treatment: Supplements: Ensure Enlive TPN: yes Lab monitoring: Total protein 4.8, 5.0 Albumin 2.0, 2.1 Please clarify the type of malnutrition, if known: [ ] Mild Protein-Calorie Malnutrition [ ] Moderate Protein-Calorie Malnutrition [ ] Severe Protein-Calorie Malnutrition [ ] Malnutrition, unspecified [ ] Malnutrition following GI surgery [ ] Other condition, please specify [ ] Unable to Determine No protein calorie malnutrition MTDD
--- NOTE | 2021-07-31 09:27 | CDI ---
Documentation Clarification Form Date: 07/31/21 From: Laureen Hermosillo Admit Date: 07/10/2021 03:49:00 AM Patient Name: Marya Mccann Visit Number: [id number] Discharge Date: 07/12/2021 11:15:00 AM ATTENTION: The Clinical Documentation Specialists (CDI) and [facility] Coding Staff appreciate your assistance in clarifying documentation. Please respond to the clarification below the line at the bottom and electronically sign. The CDI & [facility] Coding staff will review the response and follow-up if needed. Please note: Queries are made part of the Legal Health Record. If you have any questions, please contact the author of this message via ITS. Dr. Vickey Lala, A lumbar compression fracture of L1 is documented in your 07/12 PN. Additional clarification regarding the etiology of the fracture is requested. History/Risk Factors: OA Clinical Indications: Low back pain. X-Ray Results: There is mild compression fracture L1 that could be relatively acute fracture. Treatment: No emergent orthopedic surgical intervention was warranted. Plan was for reevaluation and discussion of treatment when patient's medical state improved. Please clarify the etiology of the compression lumbar 1 fracture, if known: [ ] Traumatic [ ] Nontraumatic [ ] Pathological (specify cause): ___ [ ] Neoplastic disease [ ] Osteoporosis [ ] Other (please specify): [ ] Unable to determine Osteoporosis Traumatic fragility fracture MTDD
== END 2021-07-12 11:15 | disposition expired | DRG 314 ==
LOC: EC 03:29 → 2SICU 03:49 → 5NMEDONC 07-11 20:29
PROVIDERS: ADMIT Hospitalist; ATTEND Hospitalist
PROC: 3E0436Z Introduction of Nutritional Substance into Central Vein, Percutaneous Approach (ICD-10-PCS; principal; 2021-07-10)
PROC: 5A09357 Assistance with Respiratory Ventilation, Less than 24 Consecutive Hours, Continuous Positive Airway Pressure (ICD-10-PCS; 2021-07-10)
PROC: 3E043XZ Introduction of Vasopressor into Central Vein, Percutaneous Approach (ICD-10-PCS; 2021-07-10)
PROC: 30233N1 Transfusion of Nonautologous Red Blood Cells into Peripheral Vein, Percutaneous Approach (ICD-10-PCS; 2021-07-11)
DX: T80.211A Bloodstream infection due to central venous catheter, initial encounter (principal); A41.02 Sepsis due to Methicillin resistant Staphylococcus aureus; N17.0 Acute kidney failure with tubular necrosis; J96.01 Acute respiratory failure with hypoxia; R65.21 Severe sepsis with septic shock; A41.59 Other Gram-negative sepsis; G92.9 Unspecified toxic encephalopathy; K91.2 Postsurgical malabsorption, not elsewhere classified; E46 Unspecified protein-calorie malnutrition; E87.2 Acidosis; F05 Delirium due to known physiological condition; I27.82 Chronic pulmonary embolism; I13.0 Hypertensive heart and chronic kidney disease with heart failure and stage 1 through stage 4 chronic kidney disease, or unspecified chronic kidney disease; T83.511A Infection and inflammatory reaction due to indwelling urethral catheter, initial encounter; M80.08XA Age-related osteoporosis with current pathological fracture, vertebra(e), initial encounter for fracture; D62 Acute posthemorrhagic anemia; I50.32 Chronic diastolic (congestive) heart failure; N30.00 Acute cystitis without hematuria; K95.89 Other complications of other bariatric procedure; K92.1 Melena; R57.1 Hypovolemic shock; F03.90 Unspecified dementia, unspecified severity, without behavioral disturbance, psychotic disturbance, mood disturbance, and anxiety; M06.9 Rheumatoid arthritis, unspecified; N18.31 Chronic kidney disease, stage 3a; Z66 Do not resuscitate; Z51.5 Encounter for palliative care; R62.7 Adult failure to thrive; I95.89 Other hypotension; D63.1 Anemia in chronic kidney disease; E80.7 Disorder of bilirubin metabolism, unspecified; E03.9 Hypothyroidism, unspecified; F32.A Depression, unspecified; M10.9 Gout, unspecified; K21.9 Gastro-esophageal reflux disease without esophagitis; M19.90 Unspecified osteoarthritis, unspecified site; R26.9 Unspecified abnormalities of gait and mobility; E66.9 Obesity, unspecified; Z68.33 Body mass index [BMI] 33.0-33.9, adult; Z79.01 Long term (current) use of anticoagulants; Z79.890 Hormone replacement therapy; Z79.899 Other long term (current) drug therapy; Z87.440 Personal history of urinary (tract) infections; Z90.49 Acquired absence of other specified parts of digestive tract; Z87.19 Personal history of other diseases of the digestive system; Z90.710 Acquired absence of both cervix and uterus; Z87.42 Personal history of other diseases of the female genital tract; Z87.39 Personal history of other diseases of the musculoskeletal system and connective tissue; Z98.42 Cataract extraction status, left eye; Z98.41 Cataract extraction status, right eye; Z98.890 Other specified postprocedural states; Z71.3 Dietary counseling and surveillance; Y83.1 Surgical operation with implant of artificial internal device as the cause of abnormal reaction of the patient, or of later complication, without mention of misadventure at the time of the procedure; Y84.6 Urinary catheterization as the cause of abnormal reaction of the patient, or of later complication, without mention of misadventure at the time of the procedure; Z88.0 Allergy status to penicillin; Z80.9 Family history of malignant neoplasm, unspecified
CPT/HCPCS: 36600; 70450; 71045; 72131; 76770; 80053; 81001; 82272; 82330; 82533; 82805; 83605; 83735; 83880; 84100; 84478; 85025; 85610; 85730; 86850; 86900; 86901; 86920; 87040; 87077; 87086; 87186; 93306; 94660; 96365; 99291